=== PATIENT | male | born 1955 | race Caucasian/White ===

== ENCOUNTER 2016-02-13 06:02 | Emergency (ER) | payer OTHER ==
[~2016-02-13] VITALS: Ht 180.3 cm; Wt 159.0 kg
[~2016-02-13 06:02] MED LIST: 1-ME1LIQ PO; ALLO100 PO; ASPI81TA82 PO; ATOR20TA42 PO; BENA25TA8 PO; EPIP0.3I IM; GLIM4 PO; IMDU30TA PO; LANTINJ SQ; METHY500 PO; METO50TA PO; OMEP20TA39 PO; PRED20 PO; SPIR25TA PO; WAL-10TA2 PO
[2016-02-13 06:05] VITALS: BP 141/65; PULSE 64; RESP 18; TEMP 97.4; O2SAT 97
[2016-02-13] MEDS ORDERED: OFLO0.3D9 LEFT EAR (06:29)
--- NOTE | 2016-02-13 06:33 | PD ---
HPI Chief Complaint: ENT Complaint Time Seen by Provider: 06:20 Travel History International Travel<30 days: No Contact w/Intl Traveler<30days: No Traveled to known affect area: No History of Present Illness HPI 60-year-old male presents for evaluation of decreased hearing, tinnitus and bleeding from the left ear. It started this morning when he woke up. He endorses some pain in left ear as well, throbbing. He reports over the past day he has had a cough and congestion but no ear pain. Denies any use of Q- tips. Denies recent travel, recent swimming. He has no other complaints at this time. PFSH Past Medical History Hx Anticoagulant Therapy: Yes (ASA) Arthritis: No Asthma: No Autoimmune Disease: No Blood Disorders: No Depression: No Heart Rhythm Problems: No Cancer: Yes (SQUAMOUS CELL SKIN REMOVAL BILATERAL ARM) Cardiovascular Problems: Yes (HTN) High Cholesterol: Yes Chemotherapy: No Chest Pain: No Congestive Heart Failure: No COPD: No Cerebrovascular Accident: No Diabetes: Yes Patient Takes Glucophage: Yes Diminished Hearing: Yes ([place] LEFT) Endocrine: No Gastrointestinal Disorders: No GERD: Yes Glaucoma: No Gout: Yes Genitourinary: No Headaches: No Hepatitis: No Hiatal Hernia: No Hypertension: Yes Immune Disorder: No Implanted Vascular Access Dvce: No Kidney Stones: No Musculoskeletal: Yes (BILATERAL LEG EDEMA- NO CHF) Neurologic: No Psychiatric: No Reproductive: No Respiratory: No Integumentary: Yes (SKIN CA) Immunizations Current: No Myocardial Infarction: No Radiation Therapy: No Renal Failure: Yes (STAGE 4) Seizures: No Sickle Cell Disease: No Sleep Apnea: No Thyroid Disease: No Ulcer: No Tetanus Vaccination: Unknown Influenza Vaccination: Yes Past Surgical History Abdominal Surgery: Yes (PYLORIC STENOSIS @3MO OLD) AICD: No Cardiac Surgery: No Ear Surgery: No Endocrine Surgery: No Eye Surgery: No Genitourinary Surgery: No Gynecologic Surgery: No Joint Replacement: No Neurologic Surgery: No Oral Surgery: No Pacemaker: No Thoracic Surgery: No Other Surgery: Yes (SKIN CA REMOVALS) Social History Alcohol Use: No Tobacco Use: Yes (1 PPD) Substance Use: No Allergies-Medications (Allergen,Severity, Reaction): Coded Allergies: ANDREA Inhibitors (Verified Allergy, Severe, Anaphylaxis, 02/13/16) Reported Meds & Prescriptions Reported Meds & Active Scripts Active Ofloxacin Otic Drops 0.3 % Drops 5 Drop LEFT EAR BID 7 Days Review of Systems Except as stated in HPI: all other systems reviewed are Neg Physical Exam Narrative GENERAL: Well-developed well-nourished male in no acute distress SKIN: Warm and dry. HEAD: Atraumatic. Normocephalic. EYES: Pupils equal and round. No scleral icterus. No injection or drainage. ENT: No nasal bleeding or discharge. Mucous membranes pink and moist. There appears to be a Left tympanic membrane perforation at the 6 o'clock position. There is some dried blood in the left ear canal. NECK: Trachea midline. No JVD. Data Data Last Documented VS Vital Signs Date Time Temp Pulse Resp B/P Pulse Ox O2 Delivery O2 Flow Rate FiO2 02/13/16 06:05 97.4 64 18 141/65 97 MDM Medical Decision Making Medical Screen Exam Complete: Yes Emergency Medical Condition: Yes Medical Record Reviewed: Yes Differential Diagnosis Left tympanic membrane perforation, otitis media, otitis externa Narrative Course 60-year-old male who has had a cough and congestion for 2 days presents with bleeding from the left ear canal, tinnitus in the left ear and decreased hearing and pain in left ear. Examination reveals what appears to be a perforation at the 6 o'clock position left tympanic membrane. Plan is to treat the patient with ofloxacin otic solution, have him follow up in 1 week with his primary care physician. Diagnosis Primary Impression: Perforation of left tympanic membrane Additional Instructions: Avoid getting water in left ear canal. Medication as prescribed. Follow-up in one week with primary care physician to assess healing. Return for any emergent medical conditions. Med/Other Pt SpecificInfo: Prescription(s) given Scripts Ofloxacin Otic Drops 0.3 % Drops5 Drop LEFT EAR BID 7 Days Ref 0 Prov:Laxmi Mims MD 02/13/16 Disposition: 01 DISCHARGE HOME Condition: Stable Virgilio Rankin Feb 13, 2016 06:33
== END 2016-02-13 06:49 | disposition home or self-care (01) ==
LOC: NEPB 06:02
DX: H72.92 Unspecified perforation of tympanic membrane, left ear (principal); I10 Essential (primary) hypertension; E78.00 Pure hypercholesterolemia, unspecified; N18.4 Chronic kidney disease, stage 4 (severe); F17.210 Nicotine dependence, cigarettes, uncomplicated; Z79.82 Long term (current) use of aspirin
CPT/HCPCS: 99283

== ENCOUNTER 2017-06-05 20:38 | Emergency (ER) | payer OTHER ==
[~2017-06-05] VITALS: Ht 180.3 cm; Wt 180.0 kg
[~2017-06-05 20:38] MED LIST changes: -1-ME1LIQ PO; -ALLO100 PO; -ASPI81TA82 PO; -ATOR20TA42 PO; -BENA25TA8 PO; -EPIP0.3I IM; -GLIM4 PO; -IMDU30TA PO; -LANTINJ SQ; -METHY500 PO; -METO50TA PO; +OFLO0.3D9 LEFT EAR; -OMEP20TA39 PO; -PRED20 PO; -SPIR25TA PO; -WAL-10TA2 PO
[2017-06-05 20:57] VITALS: BP 192/89; PULSE 60; RESP 26; O2SAT 95
[2017-06-05] MEDS ORDERED: RESP: ALBUTEROL 2.5 MG/IPRATROPIUM 0.5 MG NEB (SCH) ONE (21:00)
[2017-06-05] MEDS ORDERED: OMEP20TA93 PO (21:08)
[2017-06-05] MEDS ORDERED: AMLO5TAB2 PO (21:08)
[2017-06-05] MEDS ORDERED: PIOG30TA4 PO (21:08)
[2017-06-05] MEDS ORDERED: ISOS30TA3 PO (21:08)
[2017-06-05] MEDS ORDERED: FURO40TA PO (21:08)
[2017-06-05] MEDS ORDERED: INSU1INJ13 SQ (21:08)
[2017-06-05] MEDS ORDERED: TRAZ50TA12 PO (21:08)
[2017-06-05] MEDS ORDERED: ALLO100T PO (21:08)
[2017-06-05] MEDS ORDERED: BUME1TAB PO (21:08)
[2017-06-05] MEDS ORDERED: ATOR20TA15 PO (21:08)
[2017-06-05] MEDS ORDERED: ASPI-516 CHEW (21:08)
[2017-06-05] MEDS ORDERED: METO50TA PO (21:08)
[2017-06-05] MEDS ORDERED: GABA300C5 PO (21:08)
[2017-06-05] MEDS ORDERED: METH500T PO (21:08)
[2017-06-05 21:15] VITALS: O2SAT 95
[2017-06-05] MEDS ORDERED: RESP: ALBUTEROL 2.5 MG/IPRATROPIUM 0.5 MG NEB (SCH) NEB ONE ×2 (21:15→23:30)
--- NOTE | 2017-06-05 21:31 | PD ---
HPI Chief Complaint: Respiratory Symptoms Time Seen by Provider: 21:06 Travel History International Travel<30 days: No Contact w/Intl Traveler<30days: No Traveled to known affect area: No History of Present Illness HPI Patient is a 62-year-old man who for the last few days has had an upper respiratory infection coughing now he is having reactive airway bronchitis coughing and shortness of breath he recently was diagnosed with CHF and started on Bumex on top of the furosemide he is taking he says his legs have been swelling and he has been feeling more short of breath in the ER he is tachypneic but he is satting well on room air he is started on duo nebs and x- rays labs are sent including BNP to evaluate whether this is bronchitis versus congestive heart failure or combination of the 2 . He is diabetic hypertensive with recently diagnosed CHF. He reports symptoms progressively getting worse over the last few days and now continued to worsen up until the time he arrives in the ER. He does not have a home neb he does not have an HFA inhaler PFSH Past Medical History Hx Anticoagulant Therapy: Yes (ASA) Arthritis: No Asthma: No Autoimmune Disease: No Blood Disorders: No Depression: No Heart Rhythm Problems: No Cancer: Yes (SQUAMOUS CELL SKIN REMOVAL BILATERAL ARM) Cardiovascular Problems: Yes (HTN) High Cholesterol: Yes Chemotherapy: No Chest Pain: No Congestive Heart Failure: No COPD: Yes Cerebrovascular Accident: No Diabetes: Yes Patient Takes Glucophage: No Diminished Hearing: Yes ([place] LEFT) Endocrine: No Gastrointestinal Disorders: No GERD: Yes Glaucoma: No Gout: Yes Genitourinary: No Headaches: No Hepatitis: No Hiatal Hernia: No Hypertension: Yes Immune Disorder: No Implanted Vascular Access Dvce: No Kidney Stones: No Musculoskeletal: Yes (BILATERAL LEG EDEMA- NO CHF) Neurologic: No Psychiatric: No Reproductive: No Respiratory: No Integumentary: Yes (SKIN CA) Immunizations Current: No Myocardial Infarction: No Radiation Therapy: No Renal Failure: Yes (STAGE 4) Seizures: No Sickle Cell Disease: No Sleep Apnea: No Thyroid Disease: No Ulcer: No Past Surgical History Abdominal Surgery: Yes (PYLORIC STENOSIS @3MO OLD) AICD: No Cardiac Surgery: No Ear Surgery: No Endocrine Surgery: No Eye Surgery: No Genitourinary Surgery: No Gynecologic Surgery: No Joint Replacement: No Neurologic Surgery: No Oral Surgery: No Pacemaker: No Thoracic Surgery: No Other Surgery: Yes (SKIN CA REMOVALS) Social History Alcohol Use: No Tobacco Use: Yes (1 PPD) Substance Use: No Allergies-Medications (Allergen,Severity, Reaction): Coded Allergies: ANDREA Inhibitors (Verified Allergy, Severe, Anaphylaxis, 06/09/17) benazepril (Unverified Allergy, Severe, Anaphylaxis, 06/06/17) captopril (Unverified Allergy, Severe, Anaphylaxis, 06/06/17) enalaprilat (Unverified Allergy, Severe, Anaphylaxis, 06/06/17) fosinopril (Unverified Allergy, Severe, Anaphylaxis, 06/06/17) lisinopril (Unverified Allergy, Severe, Anaphylaxis, 06/06/17) quinapril (Unverified Allergy, Severe, Anaphylaxis, 06/06/17) Reported Meds & Prescriptions Reported Meds & Active Scripts Active Levaquin (Levofloxacin) 500 Mg Tablet 500 Mg PO DAILY Combivent Respimat Inh (Ipratropium-Albuterol Inh) 20-100 Intermediate/Act Aero 1 Puff INH QID Prednisone 50 Mg Tab 50 Mg PO DAILY Reported Bumetanide 1 Mg Tab 1 Mg PO DAILY Trazodone (Trazodone HCl) 50 Mg Tab 50 Mg PO HS Gabapentin 300 Mg Cap 300 Mg PO HS Furosemide 40 Mg Tab 40 Mg PO DAILY Aspirin 81 Mg Chew 81 Mg CHEW DAILY Omeprazole 20 Mg Tab 20 Mg PO DAILY Isosorbide Mononitrate ER (Isosorbide Mononitrate) 30 Mg Chris 30 Mg PO DAILY Allopurinol 100 Mg Tab 100 Mg PO DAILY Atorvastatin (Atorvastatin Calcium) 20 Mg Tab 20 Mg PO HS Pioglitazone (Pioglitazone HCl) 30 Mg Tab 30 Mg PO DAILY Amlodipine (Amlodipine Besylate) 5 Mg Tab 5 Mg PO DAILY Metoprolol Tartrate 50 Mg Tab 50 Mg PO BID Methyldopa 500 Mg Tab 500 Mg PO TID Tresiba Flextouch Pen Inj (Insulin Degludec Inj) 600 unit/3 ML Pen 60 Units SQ Review of Systems Except as stated in HPI: all other systems reviewed are Neg HENT: Positive: Congestion Respiratory: Positive: Cough, Shortness of Breath, Wheezing Physical Exam Narrative GENERAL: mild resp distress SKIN: Warm and dry. HEAD: Atraumatic. Normocephalic. EYES: Pupils equal and round. No scleral icterus. No injection or drainage. ENT: No nasal bleeding or discharge. Mucous membranes pink and moist. NECK: Trachea midline. No JVD. CARDIOVASCULAR: Regular rate and rhythm. RESPIRATORY: wheeze diffuse in all [place] . desaturation to 85% on RA GASTROINTESTINAL: Abdomen soft, non-tender,OBESE Hepatic and splenic margins not palpable. MUSCULOSKELETAL: Extremities without clubbing, cyanosis, or edema. No obvious deformities. NEUROLOGICAL: Awake and alert. No obvious cranial nerve deficits. Motor grossly within normal limits. Five out of 5 muscle strength in the arms and legs. Normal speech. PSYCHIATRIC: Appropriate mood and affect; insight and judgment normal. Data Data Last Documented VS Orders Orders Albuterol-Ipratropium Neb (Duoneb Neb) (06/05/17 21:00) Electrocardiogram (06/05/17 21:09) Complete Blood Count With Diff (06/05/17 21:09) Comprehensive Metabolic Panel (06/05/17 21:09) Ckmb (Isoenzyme) Profile (06/05/17 21:09) Troponin I (06/05/17 21:09) B-Type Natriuretic Peptide (06/05/17 21:09) Chest, Single Ap (06/05/17 21:09) Albuterol-Ipratropium Neb (Duoneb Neb) (06/05/17 21:15) Influenzae A/B Antigen (06/05/17 21:27) Methylprednisolone So Succ Inj (Solumedr (06/05/17 23:15) Levofloxacin 750 Mg Premix Inj (Levaquin (06/05/17 23:15) Albuterol-Ipratropium Neb (Duoneb Neb) (06/05/17 23:30) Ed Discharge Order (06/06/17 02:02) Labs Laboratory Tests Test 06/05/17 19:13 White Blood Count 6.2 TH/MM3 Red Blood Count 4.23 MIL/MM3 Hemoglobin 12.6 GM/DL Hematocrit 38.9 % Mean Corpuscular Volume 91.9 FL Mean Corpuscular Hemoglobin 29.7 PG Mean Corpuscular Hemoglobin Concent 32.3 % Red Cell Distribution Width 16.8 % Platelet Count 122 TH/MM3 Mean Platelet Volume 8.3 FL Neutrophils (%) (Auto) 73.1 % Lymphocytes (%) (Auto) 17.3 % Monocytes (%) (Auto) 7.6 % Eosinophils (%) (Auto) 1.6 % Basophils (%) (Auto) 0.4 % Neutrophils # (Auto) 4.6 TH/MM3 Lymphocytes # (Auto) 1.1 TH/MM3 Monocytes # (Auto) 0.5 TH/MM3 Eosinophils # (Auto) 0.1 TH/MM3 Basophils # (Auto) 0.0 TH/MM3 CBC Comment DIFF FINAL Differential Comment Blood Urea Nitrogen 24 MG/DL Creatinine 2.14 MG/DL Random Glucose 121 MG/DL Total Protein 7.0 GM/DL Albumin 2.6 GM/DL Calcium Level 8.2 MG/DL Alkaline Phosphatase 143 U/L Aspartate Amino Transf (AST/SGOT) 27 U/L Alanine Aminotransferase (ALT/SGPT) 31 U/L Total Bilirubin 0.5 MG/DL Sodium Level 141 MEQ/L Potassium Level 3.8 MEQ/L Chloride Level 99 MEQ/L Carbon Dioxide Level 33.8 MEQ/L Anion Gap 8 MEQ/L Estimat Glomerular Filtration Rate 31 ML/MIN Total Creatine Kinase 57 U/L Troponin I LESS THAN 0.02 NG/ML B-Type Natriuretic Peptide 201 PG/ML MDM Medical Decision Making Medical Screen Exam Complete: Yes Emergency Medical Condition: Yes Medical Record Reviewed: Yes Differential Diagnosis copd vs CHF vs bronchitis vs other Narrative Course duo nebs times 3 and levaquin and steroid and 4 hrs observation and RA o2 sat remains above 94 % safe for D/C and close follow up Diagnosis Primary Impression: Bronchitis Patient Instructions: Acute Bronchitis (ED), General Instructions Scripts Levofloxacin (Levaquin) 500 Mg Tablet 500 MG PO DAILY for Infection, #5 TAB 0 Refills Prov: Bill Lopez MD 06/06/17 Ipratropium-Albuterol Inh (Combivent Respimat Inh) 20-100 Intermediate/Act Aero 1 PUFF INH QID for Asthma Management, #1 INHALER 0 Refills Prov: Bill Lopez MD 06/06/17 Prednisone (Prednisone) 50 Mg Tab 50 MG PO DAILY, #5 TAB 0 Refills Prov: Bill Lopez MD 06/06/17 Disposition: 01 DISCHARGE HOME Bill Lopez MD Jun 05, 2017 21:31
--- NOTE | 2017-06-05 21:40 | RADRPT ---
EXAM DATE/TIME: 06/05/2017 21:16 [facility] COMPARISON: CHEST SINGLE AP, August 14, 2015, 12:44. INDICATIONS : Short of breath. MEDICAL HISTORY : COPD. SURGICAL HISTORY : None. ENCOUNTER: Initial ACUITY: 1 day PAIN SCORE: 0/10 LOCATION: Bilateral chest FINDINGS: Trace atelectasis both bases. No perceptible effusion. No pneumothorax. Mild cardiomegaly. CONCLUSION: Mild cardiomegaly has developed. No acute failure seen. There is mild bibasilar atelectasis. Cezar Doe MD on June 05, 2017 at 21:36 Board Certified Radiologist. This report was verified electronically.
[2017-06-05 21:44] VITALS: BP 157/75; PULSE 60; RESP 20; O2SAT 98
[2017-06-05 22:04] LABS: AUTOMATED NEUTROPHIL # 4.6 TH/MM3 (1.8-7.7); BASOPHIL % 0.4 % (0.0-2.0); EOSINOPHIL # 0.1 TH/MM3 (0-0.4); EOSINOPHIL % 1.6 % (0.0-4.0); HEMATOCRIT 38.9 % (39.0-51.0); HEMOGLOBIN 12.6 GM/DL (13.0-17.0); LYMPH % 17.3 % (9.0-44.0); LYMPHOCYTE # 1.1 TH/MM3 (1.0-4.8); MEAN CELL VOLUME 91.9 FL (80.0-100.0); MEAN CORPUSCULAR HEMOGLOBIN 29.7 PG (27.0-34.0); MEAN CORPUSCULAR HGB CONC 32.3 % (32.0-36.0); MEAN PLATELET VOLUME 8.3 FL (7.0-11.0); MONO % 7.6 % (0.0-8.0); MONOCYTE # 0.5 TH/MM3 (0-0.9); NEUT % 73.1 % (16.0-70.0); PLATELET COUNT 122 TH/MM3 (150-450); RED BLOOD COUNT 4.23 MIL/MM3 (4.50-5.90); RED CELL DISTRIBUTION WIDTH 16.8 % (11.6-17.2); WHITE BLOOD COUNT 6.2 TH/MM3 (4.0-11.0)
[2017-06-05 22:18] LABS: ALBUMIN 2.6 GM/DL (3.4-5.0); ALT (GPT) 31 U/L (12-78); AST (GOT) 27 U/L (15-37); BICARBONATE 33.8 MEQ/L (21.0-32.0); BLOOD UREA NITROGEN 24 MG/DL (7-18); CALCIUM 8.2 MG/DL (8.5-10.1); CHLORIDE 99 MEQ/L (98-107); CREATININE 2.14 MG/DL (0.60-1.30); GLOMERULAR FILTRATION RATE 31 ML/MIN (>89); GLUCOSE,RANDOM 121 MG/DL (74-106); SODIUM (NA) 141 MEQ/L (136-145)
[2017-06-05 22:22] LABS: ALKALINE PHOSPHATASE 143 U/L (45-117); TOTAL BILIRUBIN ADULT 0.5 MG/DL (0.2-1.0); TROPONIN I LESS THAN 0.02 NG/ML (0.02-0.05)
[2017-06-05 23:00] VITALS: BP 147/72; PULSE 62; RESP 18; O2SAT 95
[2017-06-05] MEDS ORDERED: methylPREDNISolone SOD SUCC 125 MG/2 ML VIAL IV PUSH ONE (23:15)
[2017-06-05] MEDS ORDERED: LEVOFLOXACIN 750 MG PREMIX INJ 150 ML IV ONE (23:15)
[2017-06-06 00:48] VITALS: BP 120/61; PULSE 66; RESP 18; O2SAT 97
[2017-06-06 01:55] VITALS: O2SAT 94
[2017-06-06] MEDS ORDERED: PRED50 PO (02:00)
[2017-06-06] MEDS ORDERED: IPRAAER INH (02:00)
[2017-06-06] MEDS ORDERED: LEVA500T33 PO (02:00)
--- NOTE | 2017-06-06 10:24 | EKG ---
Date Performed: 06/05/2017 Time Performed: 21:04:12 PTAGE: 62 years EKG: SINUS BRADYCARDIA WITH FIRST DEGREE AV BLOCK LOW QRS VOLTAGE IN PRECORDIAL LEADS ANTEROSEPT AL MYOCARDIAL INFARCTION ABNORMAL ECG PREVIOUS TRACING : 08/14/2015 12.53 Since the previous tracing, no significant change noted DOCTOR: Ozzie Adair Interpretating Date/Time 06/06/2017 10:24:13
[2017-06-06] MEDS ORDERED: ALBU0.08 NEB (12:36)
[2017-06-06] MEDS ORDERED: NEBULIZER1 MI1 (12:36)
[2017-06-06] MEDS ORDERED: TRAM50TA PO (12:36)
== END 2017-06-06 02:16 | disposition home or self-care (01) ==
LOC: NEPE 20:38
DX: J44.9 Chronic obstructive pulmonary disease, unspecified (principal); F17.200 Nicotine dependence, unspecified, uncomplicated; I12.9 Hypertensive chronic kidney disease with stage 1 through stage 4 chronic kidney disease, or unspecified chronic kidney disease; E11.22 Type 2 diabetes mellitus with diabetic chronic kidney disease; N18.4 Chronic kidney disease, stage 4 (severe); R06.02 Shortness of breath; Z79.4 Long term (current) use of insulin
CPT/HCPCS: 71045; 80053; 82550; 83880; 84484; 85025; 87804; 93005; 94640; 94664; 96374; 96375; 99285; J1956; J2930

== ENCOUNTER 2017-06-06 11:19 | Inpatient (IN) | payer OTHER ==
[~2017-06-06] VITALS: Ht 179.1 cm; Wt 172.6 kg
[~2017-06-06 11:19] MED LIST changes: +ALLO100T PO; +AMLO5TAB2 PO; +ASPI-516 CHEW; +ATOR20TA15 PO; +BUME1TAB PO; +FURO40TA PO; +GABA300C5 PO; +INSU1INJ13 SQ; +IPRAAER INH; +ISOS30TA3 PO; +LEVA500T33 PO; +METH500T PO; +METO50TA PO; +OMEP20TA93 PO; +PIOG30TA4 PO; +PRED50 PO; +TRAZ50TA12 PO
[2017-06-06 11:25] VITALS: BP 149/70; PULSE 73; RESP 24; TEMP 98.9; O2SAT 90
[2017-06-06] MEDS ORDERED: predniSONE 20 MG TAB PO ONE (11:30)
[2017-06-06] MEDS: RESP: ALBUTEROL 2.5 MG/IPRATROPIUM 0.5 MG NEB (SCH) INH ×4 (11:37→19:32)
--- NOTE | 2017-06-06 11:40 | PD ---
HPI Chief Complaint: Pain: Acute or Chronic Time Seen by Provider: 11:24 Travel History International Travel<30 days: No Contact w/Intl Traveler<30days: No History of Present Illness HPI 62-year-old male brought in by EMS status post fall at home. Patient states he was trying to change his pants on his legs became entangled and he fell backwards landing on the right hip. 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 Patient also has history of CHF. He denies chest pain currently, but does feel wheezing and short of breath, as he has not used his albuterol since being discharged yesterday. He denies significant back pain, lower extremity pain, report of syncope, loss of consciousness, hitting his head, or neck pain. Patient states he took all of his morning meds this morning except his insulin. Patient is allergic to ANDREA inhibitors. PFSH Past Medical History Hx Anticoagulant Therapy: Yes (ASA) Arthritis: No Asthma: No Autoimmune Disease: No Blood Disorders: No Depression: No Heart Rhythm Problems: No Cancer: Yes (SQUAMOUS CELL SKIN REMOVAL BILATERAL ARM) Cardiovascular Problems: Yes (HTN) High Cholesterol: Yes Chemotherapy: No Chest Pain: No Congestive Heart Failure: No COPD: Yes Cerebrovascular Accident: No Diabetes: Yes Diminished Hearing: Yes ([place] LEFT) Endocrine: No Gastrointestinal Disorders: No GERD: Yes Glaucoma: No Gout: Yes Genitourinary: No Headaches: No Hepatitis: No Hiatal Hernia: No Hypertension: Yes Immune Disorder: No Implanted Vascular Access Dvce: No Kidney Stones: No Musculoskeletal: Yes (BILATERAL LEG EDEMA- NO CHF) Neurologic: No Psychiatric: No Reproductive: No Respiratory: No Integumentary: Yes (SKIN CA) Immunizations Current: No Myocardial Infarction: No Radiation Therapy: No Renal Failure: Yes (STAGE 4) Seizures: No Sickle Cell Disease: No Sleep Apnea: No Thyroid Disease: No Ulcer: No Past Surgical History Abdominal Surgery: Yes (PYLORIC STENOSIS @3MO OLD) AICD: No Cardiac Surgery: No Ear Surgery: No Endocrine Surgery: No Eye Surgery: No Genitourinary Surgery: No Gynecologic Surgery: No Joint Replacement: No Neurologic Surgery: No Oral Surgery: No Pacemaker: No Thoracic Surgery: No Other Surgery: Yes (SKIN CA REMOVALS) Social History Alcohol Use: No Tobacco Use: Yes (1 PPD) Substance Use: No Allergies-Medications (Allergen,Severity, Reaction): Coded Allergies: benazepril (Unverified Allergy, Severe, Anaphylaxis, 06/06/17) captopril (Unverified Allergy, Severe, Anaphylaxis, 06/06/17) enalaprilat (Unverified Allergy, Severe, Anaphylaxis, 06/06/17) fosinopril (Unverified Allergy, Severe, Anaphylaxis, 06/06/17) lisinopril (Unverified Allergy, Severe, Anaphylaxis, 06/06/17) quinapril (Unverified Allergy, Severe, Anaphylaxis, 06/06/17) Reported Meds & Prescriptions Reported Meds & Active Scripts Active Levaquin (Levofloxacin) 500 Mg Tablet 500 Mg PO DAILY Combivent Respimat Inh (Ipratropium-Albuterol Inh) 20-100 [place]/Act Aero 1 Puff INH QID Prednisone 50 Mg Tab 50 Mg PO DAILY Ofloxacin Otic Drops 0.3 % Drops 5 Drop LEFT EAR BID 7 Days Reported Bumetanide 1 Mg Tab 1 Mg PO DAILY Trazodone (Trazodone HCl) 50 Mg Tab 50 Mg PO HS Gabapentin 300 Mg Cap 300 Mg PO HS Furosemide 40 Mg Tab 40 Mg PO DAILY Aspirin 81 Mg Chew 81 Mg CHEW DAILY Omeprazole 20 Mg Tab 20 Mg PO DAILY Isosorbide Mononitrate ER (Isosorbide Mononitrate) 30 Mg Chris 30 Mg PO DAILY Allopurinol 100 Mg Tab 100 Mg PO DAILY Atorvastatin (Atorvastatin Calcium) 20 Mg Tab 20 Mg PO HS Pioglitazone (Pioglitazone HCl) 30 Mg Tab 30 Mg PO DAILY Amlodipine (Amlodipine Besylate) 5 Mg Tab 5 Mg PO DAILY Metoprolol Tartrate 50 Mg Tab 50 Mg PO BID Methyldopa 500 Mg Tab 500 Mg PO TID Tresiba Flextouch Pen Inj (Insulin Degludec Inj) 600 unit/3 ML Pen 60 Units SQ Review of Systems Except as stated in HPI: all other systems reviewed are Neg General / Constitutional: No: Fever Eyes: No: Visual changes HENT: No: Headaches Cardiovascular: No: Chest Pain or Discomfort Respiratory: Positive: Shortness of Breath, Wheezing (See history of present illness per) Gastrointestinal: No: Abdominal Pain Genitourinary: No: Dysuria Musculoskeletal: Positive: Arthralgias, Pain (See history of present illness), No: Myalgias, Limited ROM Skin: No Rash Neurologic: No: Weakness Psychiatric: No: Depression Endocrine: No: Polydipsia Hematologic/Lymphatic: No: Easy Bruising Physical Exam Narrative GENERAL: Morbidly obese male in no obvious distress SKIN: Warm and dry. Normal color normal turgor. HEAD: Atraumatic. Normocephalic. EYES: Pupils equal and round. No scleral icterus. No injection or drainage. ENT: No nasal bleeding or discharge. Mucous membranes pink and moist. Pharynx is clear. Airways patent. NECK: Trachea midline. Supple and nontender. CARDIOVASCULAR: Regular rate and rhythm. RESPIRATORY: No accessory muscle use. Clear to auscultation. Breath sounds equal bilaterally. GASTROINTESTINAL: Abdomen soft, non-tender, nondistended. Hepatic and splenic margins not palpable. MUSCULOSKELETAL: Extremities without clubbing, cyanosis, or greater than 2+ bilateral nonpitting edema to both lower extremities. Patient complains of pain with palpation to the right buttocks and hip. No obvious deformity is noted. NEUROLOGICAL: Awake and alert. No obvious cranial nerve deficits. Motor grossly within normal limits. Five out of 5 muscle strength in the arms and legs. Normal speech. PSYCHIATRIC: Appropriate mood and affect; insight and judgment normal. Data Data Last Documented VS Vital Signs Date Time Temp Pulse Resp B/P (MAP) Pulse Ox O2 Delivery O2 Flow Rate FiO2 06/06/17 13:33 83 14 141/67 (91) 96 Nasal Cannula 3.00 06/06/17 11:25 98.9 Orders Orders Prednisone (Deltasone) (06/06/17 11:30) Albuterol-Ipratropium Neb (Duoneb Neb) (06/06/17 11:30) Hip, Lat Only W Ap Pelvis (06/06/17 ) Insulin Human Regular Inj (Novolin R Inj (06/06/17 11:45) Complete Blood Count With Diff (06/06/17 12:56) Comprehensive Metabolic Panel (06/06/17 12:56) B-Type Natriuretic Peptide (06/06/17 12:56) Act Partial Throm Time (Ptt) (06/06/17 12:56) Prothrombin Time / Inr (Pt) (06/06/17 12:56) Iv Access Insert/Monitor (06/06/17 12:56) Electrocardiogram (06/06/17 12:56) Ecg Monitoring (06/06/17 12:56) Oximetry (06/06/17 12:56) Oxygen Administration (06/06/17 12:56) Chest, Single Ap (06/06/17 12:56) Sodium Chloride 0.9% Flush (Ns Flush) (06/06/17 13:00) Furosemide Inj (Lasix Inj) (06/06/17 13:00) Admit Order (Ed Use Only) (06/06/17 14:41) Labs Laboratory Tests Test 06/06/17 13:15 White Blood Count 5.6 TH/MM3 Red Blood Count 4.22 MIL/MM3 Hemoglobin 12.6 GM/DL Hematocrit 38.9 % Mean Corpuscular Volume 92.0 FL Mean Corpuscular Hemoglobin 29.9 PG Mean Corpuscular Hemoglobin Concent 32.5 % Red Cell Distribution Width 16.8 % Platelet Count 111 TH/MM3 Mean Platelet Volume 8.1 FL Neutrophils (%) (Auto) 88.9 % Lymphocytes (%) (Auto) 8.0 % Monocytes (%) (Auto) 2.7 % Eosinophils (%) (Auto) 0.0 % Basophils (%) (Auto) 0.4 % Neutrophils # (Auto) 5.0 TH/MM3 Lymphocytes # (Auto) 0.4 TH/MM3 Monocytes # (Auto) 0.2 TH/MM3 Eosinophils # (Auto) 0.0 TH/MM3 Basophils # (Auto) 0.0 TH/MM3 CBC Comment DIFF FINAL Differential Comment Prothrombin Time 10.8 SEC Prothromb Time International Ratio 1.1 RATIO Activated Partial Thromboplast Time 25.0 SEC Blood Urea Nitrogen 26 MG/DL Creatinine 2.29 MG/DL Random Glucose 189 MG/DL Total Protein 7.0 GM/DL Albumin 2.4 GM/DL Calcium Level 8.4 MG/DL Alkaline Phosphatase 141 U/L Aspartate Amino Transf (AST/SGOT) 34 U/L Alanine Aminotransferase (ALT/SGPT) 33 U/L Total Bilirubin 0.4 MG/DL Sodium Level 138 MEQ/L Potassium Level 4.3 MEQ/L Chloride Level 99 MEQ/L Carbon Dioxide Level 30.1 MEQ/L Anion Gap 9 MEQ/L Estimat Glomerular Filtration Rate 29 ML/MIN B-Type Natriuretic Peptide 201 PG/ML MDM Medical Decision Making Medical Screen Exam Complete: Yes Emergency Medical Condition: Yes Medical Record Reviewed: Yes Differential Diagnosis Accidental fall. Right hip contusion. Possible fracture. COPD. Wheezing. Narrative Course Patient appears medically stable time exam. Patient is given 60 mg prednisone dose as well as DuoNeb 3 for his bronchitis. Patient is given 5 units of regular insulin for his blood sugar which is 283. X-ray of the right hip and pelvis is ordered. X-ray show no acute process per radiologist Upon reassessment after the DuoNeb the patient feels subjectively better but he is noted to be dropping into the 80s on room air. At this point labs ordered including CBC, CMP, BMP, and coagulation studies. Patient is given 40 mg Lasix IV. Chest x-ray is ordered. EKG shows sinus rhythm with first degree AV block. CBC shows no significant leukocytosis with a hemoglobin of 12.6, hematocrit of 38.9 Coagulation studies shows PT of 10.8, INR 1.1, and APTT is 25.0. Chemistries show sodium of 134, BUN is 29, creatinine is elevated at 2.29. Alk phos is elevated 141, BUN is exactly the same as yesterday at 201. Albumin is 2.4. Due to the patient's hypoxia and difficulty ambulating secondary to weakness I feel he warrants admission and perhaps PT eval or nursing facility placement. Patient to be admitted for his hypoxia. Diagnosis Primary Impression: Hypoxemic respiratory failure, chronic Additional Impressions: Contusion of right hip, initial encounter Wheezing Chronic renal insufficiency Qualified Codes: N18.3 - Chronic kidney disease, stage 3 (moderate) Admitting Information Admitting Physician Requests: Observation Patient Instructions: Contusion in Adults (ED), General Instructions, How to Use a Nebulizer (ED) Additional Instructions: X-ray show no acute process per radiologist Patient should continue his antibiotics and prednisone as previously prescribed. Patient is given a nebulizer with albuterol every 4 hours as needed wheezing. Patient also given tramadol 50 mg 1 every 6 hours as needed pain #12 Patient to follow with his primary care physician next week to ensure improvement on all things Disposition: 01 DISCHARGE HOME Condition: Stable Ruddy Bui Jun 06, 2017 11:40
[2017-06-06 11:43] VITALS: O2SAT 96
[2017-06-06] MEDS ORDERED: INSULIN HUMAN REGULAR 1,000 UNITS/10 ML VIAL SQ ONE (11:45)
--- NOTE | 2017-06-06 12:05 | RADRPT ---
EXAM DATE/TIME: 06/06/2017 11:46 [facility] COMPARISON: No previous studies available for comparison. INDICATIONS : Right sided hip pain after fall this morning. MEDICAL HISTORY : Chronic obstructive pulmonary disease. SURGICAL HISTORY : None. ENCOUNTER: Initial ACUITY: 1 day PAIN SCORE: 4/10 LOCATION: Right hip. FINDINGS: A lateral view of the right hip with AP pelvis was obtained. No definite fractures, dislocations, ly tic or sclerotic lesions are seen. The joint space is well maintained. CONCLUSION: No acute disease. Cezar Prieto MD on June 06, 2017 at 12:01 Board Certified Radiologist. This report was verified electronically.
[2017-06-06] MEDS ORDERED: NEBULIZER1 MI1 (12:36)
[2017-06-06] MEDS ORDERED: ALBU0.08 NEB (12:36)
[2017-06-06] MEDS ORDERED: TRAM50TA PO (12:36)
[2017-06-06] MEDS ORDERED: FUROSEMIDE 40 MG/4 ML VIAL IVP ONE (13:00)
[2017-06-06] MEDS ORDERED: SODIUM CHLORIDE 0.9% FLUSH 10 ML FLUSH IVF PRN (13:00)
[2017-06-06 13:33] VITALS: BP 141/67; PULSE 83; RESP 14; O2SAT 96
[2017-06-06 13:40] LABS: BASOPHIL % 0.4 % (0.0-2.0); HEMATOCRIT 38.9 % (39.0-51.0); HEMOGLOBIN 12.6 GM/DL (13.0-17.0); LYMPHOCYTE # 0.4 TH/MM3 (1.0-4.8); MEAN CORPUSCULAR HEMOGLOBIN 29.9 PG (27.0-34.0); MEAN CORPUSCULAR HGB CONC 32.5 % (32.0-36.0); MEAN PLATELET VOLUME 8.1 FL (7.0-11.0); MONO % 2.7 % (0.0-8.0); MONOCYTE # 0.2 TH/MM3 (0-0.9); NEUT % 88.9 % (16.0-70.0); PLATELET COUNT 111 TH/MM3 (150-450); RED BLOOD COUNT 4.22 MIL/MM3 (4.50-5.90); RED CELL DISTRIBUTION WIDTH 16.8 % (11.6-17.2); WHITE BLOOD COUNT 5.6 TH/MM3 (4.0-11.0)
--- NOTE | 2017-06-06 13:44 | RADRPT ---
EXAM DATE/TIME: 06/06/2017 13:22 [facility] COMPARISON: CHEST SINGLE AP, August 14, 2015, 12:44. CHEST SINGLE AP, June 05, 2017, 21:16. INDICATIONS : Shortness of breath. MEDICAL HISTORY : Chronic obstructive pulmonary disease. Diabetes mellitus type II. Hypertension. CHF. SURGICAL HISTORY : None. ENCOUNTER: Initial ACUITY: 4 - 6 days PAIN SCORE: 0/10 LOCATION: chest FINDINGS: The heart size is enlarged. The lungs are grossly clear. No effusion is seen. The upper trachea is de viated to the left. This appearance is unchanged. CONCLUSION: Cardiomegaly. Cezar Prieto MD on June 06, 2017 at 13:40 Board Certified Radiologist. This report was verified electronically.
[2017-06-06 13:49] LABS: INTERNATIONAL NORMALIZED RATIO 1.1 RATIO; PROTHROMBIN TIME - PATIENT 10.8 SEC (9.8-11.6)
--- NOTE | 2017-06-06 13:57 | PD ---
Data Data Last Documented VS Vital Signs Date Time Temp Pulse Resp B/P (MAP) Pulse Ox O2 Delivery O2 Flow Rate FiO2 06/06/17 13:33 83 14 141/67 (91) 96 Nasal Cannula 3.00 06/06/17 11:25 98.9 Orders Orders Prednisone (Deltasone) (06/06/17 11:30) Albuterol-Ipratropium Neb (Duoneb Neb) (06/06/17 11:30) Hip, Lat Only W Ap Pelvis (06/06/17 ) Insulin Human Regular Inj (Novolin R Inj (06/06/17 11:45) Complete Blood Count With Diff (06/06/17 12:56) Comprehensive Metabolic Panel (06/06/17 12:56) B-Type Natriuretic Peptide (06/06/17 12:56) Act Partial Throm Time (Ptt) (06/06/17 12:56) Prothrombin Time / Inr (Pt) (06/06/17 12:56) Iv Access Insert/Monitor (06/06/17 12:56) Electrocardiogram (06/06/17 12:56) Ecg Monitoring (06/06/17 12:56) Oximetry (06/06/17 12:56) Oxygen Administration (06/06/17 12:56) Chest, Single Ap (06/06/17 12:56) Sodium Chloride 0.9% Flush (Ns Flush) (06/06/17 13:00) Furosemide Inj (Lasix Inj) (06/06/17 13:00) Labs Laboratory Tests Test 06/06/17 13:15 White Blood Count 5.6 TH/MM3 Red Blood Count 4.22 MIL/MM3 Hemoglobin 12.6 GM/DL Hematocrit 38.9 % Mean Corpuscular Volume 92.0 FL Mean Corpuscular Hemoglobin 29.9 PG Mean Corpuscular Hemoglobin Concent 32.5 % Red Cell Distribution Width 16.8 % Platelet Count 111 TH/MM3 Mean Platelet Volume 8.1 FL Neutrophils (%) (Auto) 88.9 % Lymphocytes (%) (Auto) 8.0 % Monocytes (%) (Auto) 2.7 % Eosinophils (%) (Auto) 0.0 % Basophils (%) (Auto) 0.4 % Neutrophils # (Auto) 5.0 TH/MM3 Lymphocytes # (Auto) 0.4 TH/MM3 Monocytes # (Auto) 0.2 TH/MM3 Eosinophils # (Auto) 0.0 TH/MM3 Basophils # (Auto) 0.0 TH/MM3 CBC Comment DIFF FINAL Differential Comment Prothrombin Time 10.8 SEC Prothromb Time International Ratio 1.1 RATIO Activated Partial Thromboplast Time 25.0 SEC MDM Supervised Visit with CANDELARIA: Yes Narrative Course I, Dr. Horner, have reviewed the advance practice practitioner's documentation and am in agreement, met with the patient face to face, made the diagnosis, and the medical decision making was done by me. *My assessment and Findings: I met with the patient and examined him. Saturations are poor even resting. He has a hypoxic respiratory failure I believe due to a combination of both COPD and CHF. He has had multiple nebulizers here. We gave him IV Lasix. His chest x-ray shows some cardiomegaly and a hint of fluid overload. He will be admitted. Diagnosis Primary Impression: Hypoxemic respiratory failure, chronic Additional Impressions: Wheezing Contusion of right hip, initial encounter Admitting Information Admitting Physician Requests: Admit Patient Instructions: General Instructions, How to Use a Nebulizer (ED), Contusion in Adults (ED) Additional Instruction: X-ray show no acute process per radiologist Patient should continue his antibiotics and prednisone as previously prescribed. Patient is given a nebulizer with albuterol every 4 hours as needed wheezing. Patient also given tramadol 50 mg 1 every 6 hours as needed pain #12 Patient to follow with his primary care physician next week to ensure improvement on all things Sony Horner MD Jun 06, 2017 13:57
[2017-06-06 14:02] LABS: ALKALINE PHOSPHATASE 141 U/L (45-117); TOTAL BILIRUBIN ADULT 0.4 MG/DL (0.2-1.0)
[2017-06-06 14:11] LABS: ALBUMIN 2.4 GM/DL (3.4-5.0); ALT (GPT) 33 U/L (12-78); AST (GOT) 34 U/L (15-37); BICARBONATE 30.1 MEQ/L (21.0-32.0); BLOOD UREA NITROGEN 26 MG/DL (7-18); CALCIUM 8.4 MG/DL (8.5-10.1); CHLORIDE 99 MEQ/L (98-107); CREATININE 2.29 MG/DL (0.60-1.30); GLOMERULAR FILTRATION RATE 29 ML/MIN (>89); GLUCOSE,RANDOM 189 MG/DL (74-106); SODIUM (NA) 138 MEQ/L (136-145)
[2017-06-06] MEDS ORDERED: methylPREDNISolone SOD SUCC 125 MG/2 ML VIAL IV PUSH SCH ×2 (15:00→18:00)
--- NOTE | 2017-06-06 15:16 | HHI.HP ---
HPI Service [facility] Hospitalists Primary Care Physician Saurav Rojas MD Admission Diagnosis Hypoxia/COPD/CHF Chief Complaint: fell, SOB, edema Travel History International Travel<30 Days: No Contact w/Intl Traveler <30 Da: No Traveled to Known Affected Are: No History of Present Illness This is a 62-year-old male patient with a past medical history which includes CAD, hypertension, diabetes mellitus type 2, chronic kidney disease stage III, tobacco dependence, gout, squamous cell carcinoma of the skin, GERD, alcohol dependency in remission, pancreatitis, fatty liver, hyperlipidemia and morbid obesity. Patient was seen yesterday in the ER diagnosed with COPD exacerbation and DC with prescriptions for Levaquin, Combivent and prednisone. Patient returns to the ER today brought in by EMS status post fall at home. Patient denies LOC or head trauma. Patient was trying to change his pants when his legs became entangled and he fell backwards landing on the right hip. Patient states he was getting dressed to go to the pharmacy to bead picker his medications that were given to him yesterday for his COPD/bronchitis flare. Patient reports feeling short of breath and wheezing. Patient's pulse oxygen saturation on RA was 90%. Patient and his sisters who help care for him report worsening edema over the past 2-3 months. Patient reports he is probably gained weight but is unsure the amount. Patient also reports that his shortness of breath is getting worse. He is only able to ambulate short distances then becomes short of breath and has to rest. Patient is unable to lay flat to sleep and has to sleep propped up on 2-3 pillows. Patient denies feeling lightheaded, headache, fevers, chills, cough, congestion , chest pain or N/V/D/C Review of Systems Constitutional: COMPLAINS OF: Fatigue, DENIES: Fever, Chills Respiratory: COMPLAINS OF: Wheezing, Shortness of breath, DENIES: Cough, Sputum production Cardiovascular: COMPLAINS OF: Dyspnea on Exertion, Lower Extremity Edema, DENIES: Chest pain Gastrointestinal: DENIES: Abdominal pain, Constipation, Diarrhea, Nausea, Vomiting Neurologic: DENIES: Abnormal gait, Headache, Localized weakness, Speech Problems Psychiatric: DENIES: Anxiety, Confusion, Depression Past Family Social History Past Medical History CAD, hypertension, diabetes mellitus type 2, chronic kidney disease stage III, tobacco dependence, gout, squamous cell carcinoma of the skin, GERD, alcohol dependency in remission, pancreatitis, fatty liver, hyperlipidemia and morbid obesity Past Surgical History Skin biopsy, actinic keratosis excision from left forearm, excision of squamous cell carcinoma from left forearm, nuclear stress test 2013 negative, colonoscopy 2013 Reported Medications Levaquin (Levofloxacin) 500 Mg Tablet 500 Mg PO DAILY Combivent Respimat Inh (Ipratropium-Albuterol Inh) 20-100 Penit[facility]iary/Act Aero 1 Puff INH QID Prednisone 50 Mg Tab 50 Mg PO DAILY Ofloxacin Otic Drops 0.3 % Drops 5 Drop LEFT EAR BID 7 Days Bumetanide 1 Mg Tab 1 Mg PO DAILY Trazodone (Trazodone HCl) 50 Mg Tab 50 Mg PO HS Gabapentin 300 Mg Cap 300 Mg PO HS Furosemide 40 Mg Tab 40 Mg PO DAILY Aspirin 81 Mg Chew 81 Mg CHEW DAILY Omeprazole 20 Mg Tab 20 Mg PO DAILY Isosorbide Mononitrate ER (Isosorbide Mononitrate) 30 Mg Chris 30 Mg PO DAILY Allopurinol 100 Mg Tab 100 Mg PO DAILY Atorvastatin (Atorvastatin Calcium) 20 Mg Tab 20 Mg PO HS Pioglitazone (Pioglitazone HCl) 30 Mg Tab 30 Mg PO DAILY Amlodipine (Amlodipine Besylate) 5 Mg Tab 5 Mg PO DAILY Metoprolol Tartrate 50 Mg Tab 50 Mg PO BID Methyldopa 500 Mg Tab 500 Mg PO TID Tresiba Flextouch Pen Inj (Insulin Degludec Inj) 600 unit/3 ML Pen 60 Units SQ Allergies: Coded Allergies: benazepril (Unverified Allergy, Severe, Anaphylaxis, 06/06/17) captopril (Unverified Allergy, Severe, Anaphylaxis, 06/06/17) enalaprilat (Unverified Allergy, Severe, Anaphylaxis, 06/06/17) fosinopril (Unverified Allergy, Severe, Anaphylaxis, 06/06/17) lisinopril (Unverified Allergy, Severe, Anaphylaxis, 06/06/17) quinapril (Unverified Allergy, Severe, Anaphylaxis, 06/06/17) Family History Father at 88 years old secondary to CAD Mother at 71 had a history of heart disease and hypertension DM, HTN also runs in the family Social History History of EtOH abuse quit drinking in 1994 Continues to smoke 1 pack per day Physical Exam Vital Signs Vital Signs Date Time Temp Pulse Resp B/P (MAP) Pulse Ox O2 Delivery O2 Flow Rate FiO2 06/06/17 13:33 83 14 141/67 (91) 96 Nasal Cannula 3.00 06/06/17 11:43 96 Nasal Cannula 2.00 06/06/17 11:33 73 24 96 Nasal Cannula 2.00 06/06/17 11:25 98.9 73 24 149/70 (96) 90 Physical Exam GENERAL: This is a Morbidly obese, well-developed patient SKIN: No rashes, ecchymoses or lesions. Cool and dry. EYES: Extraocular motions intact. No scleral icterus. No injection or drainage. NECK: Trachea midline. No lymphadenopathy. Supple, nontender, no meningeal signs. CARDIOVASCULAR: Regular rate and rhythm RESPIRATORY: decreased through with poor air entry GASTROINTESTINAL: Abdomen soft, non-tender, nondistended. edema up into abdomen consistent with anasarca MUSCULOSKELETAL: 2+ bilateral pitting edema NEUROLOGICAL: Awake and alert. No focal deficits. Motor and sensory grossly within normal limits. 4 out of 5 muscle strength in all muscle groups. Normal speech. Laboratory Laboratory Tests Test 06/06/17 13:15 White Blood Count 5.6 Red Blood Count 4.22 Hemoglobin 12.6 Hematocrit 38.9 Mean Corpuscular Volume 92.0 Mean Corpuscular Hemoglobin 29.9 Mean Corpuscular Hemoglobin Concent 32.5 Red Cell Distribution Width 16.8 Platelet Count 111 Mean Platelet Volume 8.1 Neutrophils (%) (Auto) 88.9 Lymphocytes (%) (Auto) 8.0 Monocytes (%) (Auto) 2.7 Eosinophils (%) (Auto) 0.0 Basophils (%) (Auto) 0.4 Neutrophils # (Auto) 5.0 Lymphocytes # (Auto) 0.4 Monocytes # (Auto) 0.2 Eosinophils # (Auto) 0.0 Basophils # (Auto) 0.0 CBC Comment DIFF FINAL Differential Comment Prothrombin Time 10.8 Prothromb Time International Ratio 1.1 Activated Partial Thromboplast Time 25.0 Blood Urea Nitrogen 26 Creatinine 2.29 Random Glucose 189 Total Protein 7.0 Albumin 2.4 Calcium Level 8.4 Alkaline Phosphatase 141 Aspartate Amino Transf (AST/SGOT) 34 Alanine Aminotransferase (ALT/SGPT) 33 Total Bilirubin 0.4 Sodium Level 138 Potassium Level 4.3 Chloride Level 99 Carbon Dioxide Level 30.1 Anion Gap 9 Estimat Glomerular Filtration Rate 29 B-Type Natriuretic Peptide 201 Result Diagram: 06/06/17 1315 06/06/17 1315 Imaging Last Impressions Chest X-Ray 06/06/17 1256 Signed Impressions: Service Date/Time: Tuesday, June 06, 2017 13:22 - CONCLUSION: Cardiomegaly. Cezar Prieto MD Hip and Pelvis X-Ray 06/06/17 0000 Signed Impressions: Service Date/Time: Tuesday, June 06, 2017 11:46 - CONCLUSION: No acute disease. MD Jaguar [employer]gs VTE Risk Assessment Caprini VTE Risk Assessment: Mod/High Risk (score >= 2) Caprini Risk Assessment Model Point Value = 1 Point Value = 2 Point Value = 3 Point Value = 5 Age 41-60 Minor surgery BMI > 25 kg/m2 Swollen legs Varicose veins or History of unexplained or recurrent spontaneous Oral contraceptives or hormone replacement Sepsis (< 1 month) Serious lung disease, including pneumonia (< 1 month) Abnormal pulmonary function Acute myocardial infarction Congestive heart failure (< 1 month) History of inflammatory bowel disease Medical patient at bed rest Age 61-74 Arthroscopic surgery Major open surgery (> 45 min) Laparoscopic surgery (> 45 min) Malignancy Confined to bed (> 72 hours) Immobilizing plaster cast Central venous access Age >= 75 History of VTE Family history of VTE Factor V Leiden Prothrombin [id number] Lupus anticoagulant Anticardiolipin antibodies Elevated serum homocysteine Heparin-induced thrombocytopenia Other congenital or acquired thrombophilia Stroke (< 1 month) Elective arthroplasty Hip, pelvis, or leg fracture Acute spinal cord injury (< 1 month) Prophylaxis Regimen Total Risk Factor Score Risk Level Prophylaxis Regimen 0-1 Low Early ambulation 2 Moderate Order ONE of the following: *Sequential Compression Device (SCD) *Heparin 5000 units SQ BID 3-4 Higher Order ONE of the following medications: *Heparin 5000 units SQ TID *Enoxaparin/Lovenox 40 mg SQ daily (WT < 150 kg, CrCl > 30 mL/min) *Enoxaparin/Lovenox 30 mg SQ daily (WT < 150 kg, CrCl > 10-29 mL/min) *Enoxaparin/Lovenox 30 mg SQ BID (WT < 150 kg, CrCl > 30 mL/min) AND/OR *Sequential Compression Device (SCD) 5 or more Highest Order ONE of the following medications: *Heparin 5000 units SQ TID (Preferred with Epidurals) *Enoxaparin/Lovenox 40 mg SQ daily (WT < 150 kg, CrCl > 30 mL/min) *Enoxaparin/Lovenox 30 mg SQ daily (WT < 150 kg, CrCl > 10-29 mL/min) *Enoxaparin/Lovenox 30 mg SQ BID (WT < 150 kg, CrCl > 30 mL/min) AND *Sequential Compression Device (SCD) Assessment and Plan Problem List: (1) Hypoxia ICD Codes: R09.02 - Hypoxemia Plan: SOB with hypoxia, patient was 87% on room air 06/05/2017 COPD exacerbation High suspicion for CHF given clinical presentation patient with increasing fluid retention over the last 2-3 months Lasix 40 mg IV given in ER Continue Lasix 40 mg IV BID Echocardiogram requested Lungs have poor air entry with air movement through out solu medrol 60 mg IV given in ER will continue Solu medrol 60 mg IV Q6H repeat CXR in AM (2) CKD (chronic kidney disease) requiring chronic dialysis ICD Codes: N18.6 - End stage renal disease; Z99.2 - Dependence on renal dialysis Plan: Baseline creatinine runs 1.9-2.2 Baseline GFR around 30-37 monitor closely (3) Hypertension ICD Codes: I10 - Hypertension Status: Acute Plan: Continue patient's home Norvasc 5 mg daily, metoprolol 50 mg twice daily (4) DM (diabetes mellitus) ICD Codes: E11.9 - DM (diabetes mellitus) Status: Acute Plan: Patient takes Tresiba 60 mg daily and Pioglitazone 30 mg PO daily-the hospital does not carry these medications We will start patient on checks before meals at bedtime with high dose sliding scale insulin coverage Diabetic diet (5) Tobacco abuse ICD Codes: Z72.0 - Tobacco abuse Status: Acute Plan: Counselled encouraged patient to quit smoking patient declined nicotine patch (6) Fall ICD Codes: W19.XXXA - Unspecified fall, initial encounter Plan: Mechanical fall with right hip pain X ray Right Hip and Pelvis No fracture dislocation or lytic lesion seen. No acute disease PT consulted Assessment and Plan Patient examined. Assessment and plan formulated with Abby Young PA-C. I agree with the above. Pt family c/o worsening SOB and edema for several months. Pt is current smoker. Pt has edema in LEs up to the lower abdomen. Start IV Lasix. Poor lung air movement. Start IV steroids. Anticipate 3-4 day hospital stay. Abby Young Jun 06, 2017 15:16 Jas Santoyo DO Jun 08, 2017 04:29
[2017-06-06] MEDS: cefTRIAXone INJ 1,000 MG in SODIUM CHLORIDE 0.9% INJ 100 ML IV SCH (15:56)
--- NOTE | 2017-06-06 16:14 | RADRPT ---
EXAM DATE/TIME: 06/06/2017 15:25 [facility] COMPARISON: No previous studies available for comparison. INDICATIONS : Shortness of breath today. RADIATION DOSE: 25.17 CTDIvol (mGy) ; Patient body habitus MEDICAL HISTORY : Hypertension. Chronic obstructive pulmonary disease. Gastroesophageal reflux disease. diabetes SURGICAL HISTORY : None. ENCOUNTER: Initial ACUITY: 1 day PAIN SCALE: 0/10 LOCATION: Bilateral chest TECHNIQUE: Volumetric scanning of the chest was performed. Using automated exposure control and adjustment of t he mA and/or kV according to patient size, radiation dose was kept as low as reasonably achievable to obtain optimal diagnostic quality images. DICOM format image data is available electronically for r eview and comparison. Follow-up recommendations for detected pulmonary nodules are based at a minimum on nodule size and pa tient risk factors according to Fleischner Society Guidelines. FINDINGS: LUNGS: There is mild increased density at the posterior lower lobes likely related to consolidation or atele ctasis. There are bilateral calcified granulomas. There is a faint 5 mm density in the anterior later al right midlung likely related to some minimal focal pleural thickening at the lateral aspect of the minor fissure. PLEURAE: Again noted is the suspected minimal focal pleural thickening the lateral aspect of the right minor f issure. MEDIASTINUM: The heart and great vessels demonstrate no acute abnormality. Calcified lymph nodes are seen the hil ar regions. Soft tissue adenopathy is not seen. There is a mild amount of pericardial fluid present. Coronary artery calcification are present. AXILLAE: Within normal limits. No lymphadenopathy. MUSCULOSKELETAL: There is spurring seen in the thoracic spine. MISCELLANEOUS: There is a 2.8 cm fat density mass of the left adrenal gland likely related to a myelolipoma. CONCLUSION: 1. Evidence of granulomatous exposure. 2. Suspected bibasal areas of mild atelectasis or consolidation. 3. 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 Cezra Prieto MD on June 06, 2017 at 16:04 Board Certified Radiologist. This report was verified electronically.
[2017-06-06] MEDS ORDERED: INSULIN ASPART SUPPLEMENTAL SCALE SQ SCH (17:00)
[2017-06-06 17:20] VITALS: BP 150/70; PULSE 91; RESP 19; TEMP 97.3; O2SAT 92
[2017-06-06] MEDS: METHYLDOPA 500 MG TAB PO SCH (18:12)
[2017-06-06] MEDS: methylPREDNISolone SOD SUCC 125 MG/2 ML VIAL IV PUSH SCH ×2 (18:12→23:47)
[2017-06-06] MEDS: FUROSEMIDE 40 MG/4 ML VIAL IV PUSH SCH (18:12)
[2017-06-06] MEDS: INSULIN ASPART SUPPLEMENTAL SCALE SQ SCH ×2 (18:13→20:32)
[2017-06-06 19:32] VITALS: O2SAT 95
[2017-06-06 20:00] VITALS: BP 163/76; PULSE 90; RESP 17; TEMP 97.6; O2SAT 96
[2017-06-06] MEDS: ATORVASTATIN 20 MG TAB PO SCH (20:20)
[2017-06-06] MEDS: METOPROLOL TARTRATE 50 MG TAB PO SCH (20:20)
[2017-06-06] MEDS: traZODone HCL 50 MG TAB PO SCH (20:20)
[2017-06-06] MEDS: SODIUM CHLORIDE 0.9% FLUSH 10 ML FLUSH IV FLUSH SCH (20:25)
[2017-06-06] MEDS: LORazepam 0.5 MG TAB PO PRN (20:32)
[2017-06-06] MEDS ORDERED: OFLOXACIN 0.3% OPTH SOLN 5 ML BTL LEFT EAR SCH (21:00)
[2017-06-07] VITALS (9 sets, daily range): BP systolic 151–164; BP diastolic 70–81; PULSE 63–105; RESP 18–20; TEMP 97.4–98.6; O2SAT 92–95
--- NOTE | 2017-06-07 00:22 | EKG ---
Date Performed: 06/06/2017 Time Performed: 13:04:17 PTAGE: 62 years EKG: Sinus rhythm WITH FIRST DEGREE AV BLOCK LOW QRS VOLTAGE IN PRECORDIAL LEADS ANTEROSEPTAL MYOCARDIAL INFARCTION AB NORMAL ECG PREVIOUS TRACING : 06/05/2017 21.04 Compared to previous tracing, rate has increased DOCTOR: Ozzie Adair Interpretating Date/Time 06/07/2017 00:20:36
[2017-06-07] MEDS: methylPREDNISolone SOD SUCC 125 MG/2 ML VIAL IV PUSH SCH ×4 (05:19→23:47)
[2017-06-07 06:15] LABS: AUTOMATED NEUTROPHIL # 10.3 TH/MM3 (1.8-7.7); BASOPHIL % 0.1 % (0.0-2.0); EOSINOPHIL % 0.3 % (0.0-4.0); HEMATOCRIT 37.3 % (39.0-51.0); HEMOGLOBIN 12.1 GM/DL (13.0-17.0); LYMPHOCYTE # 0.4 TH/MM3 (1.0-4.8); MEAN CELL VOLUME 91.1 FL (80.0-100.0); MEAN CORPUSCULAR HEMOGLOBIN 29.6 PG (27.0-34.0); MEAN CORPUSCULAR HGB CONC 32.4 % (32.0-36.0); MEAN PLATELET VOLUME 8.6 FL (7.0-11.0); MONO % 1.2 % (0.0-8.0); MONOCYTE # 0.1 TH/MM3 (0-0.9); NEUT % 94.4 % (16.0-70.0); PLATELET COUNT 131 TH/MM3 (150-450); RED BLOOD COUNT 4.09 MIL/MM3 (4.50-5.90); RED CELL DISTRIBUTION WIDTH 16.9 % (11.6-17.2); WHITE BLOOD COUNT 10.9 TH/MM3 (4.0-11.0)
[2017-06-07 06:42] LABS: BICARBONATE 31.5 MEQ/L (21.0-32.0); CALCIUM 8.6 MG/DL (8.5-10.1); CREATININE 2.41 MG/DL (0.60-1.30)
[2017-06-07] MEDS: RESP: ALBUTEROL 2.5 MG/IPRATROPIUM 0.5 MG NEB (SCH) NEB ×4 (08:19→23:10)
[2017-06-07] MEDS: ASPIRIN 81 MG CHEW TAB CHEW SCH (08:41)
[2017-06-07] MEDS: ALLOPURINOL 100 MG TAB PO SCH (08:41)
[2017-06-07] MEDS: METOPROLOL TARTRATE 50 MG TAB PO SCH ×2 (08:41→20:15)
[2017-06-07] MEDS: SODIUM CHLORIDE 0.9% FLUSH 10 ML FLUSH IV FLUSH SCH ×2 (08:41→20:15)
[2017-06-07] MEDS: AZITHROMYCIN 250 MG TAB PO SCH (08:41)
[2017-06-07] MEDS: INSULIN ASPART SUPPLEMENTAL SCALE SQ SCH ×4 (08:41→20:40)
[2017-06-07] MEDS: PANTOPRAZOLE SOD 20 MG DELAYED RELEASE TAB PO SCH (08:41)
[2017-06-07] MEDS: METHYLDOPA 500 MG TAB PO SCH ×3 (08:42→17:19)
[2017-06-07] MEDS: ISOSORBIDE MONONITRATE 30 MG CR TAB (IMDUR) PO SCH (08:42)
[2017-06-07] MEDS: FUROSEMIDE 40 MG/4 ML VIAL IV PUSH SCH ×2 (08:42→17:19)
[2017-06-07] MEDS ORDERED: amLODIPine BESYLATE 5 MG TAB PO SCH (09:00)
[2017-06-07] MEDS ORDERED: FUROSEMIDE 40 MG TAB PO SCH (09:00)
--- NOTE | 2017-06-07 09:34 | RADRPT ---
EXAM DATE/TIME: 06/07/2017 09:11 [facility] COMPARISON: No previous studies available for comparison. INDICATIONS : Shortness of breath, cough, congestion. MEDICAL HISTORY : Hypertension. Diabetes mellitus type II. Chronic obstructive pulmonary disease. Congestive heart failure. Smoker. SURGICAL HISTORY : None. ENCOUNTER: Subsequent ACUITY: 1 week PAIN SCORE: 0/10 LOCATION: Bilateral chest FINDINGS: Cardiomegaly and degenerative changes. No consolidation or effusion. CONCLUSION: No acute disease. Feliberto Villanueva MD on June 07, 2017 at 9:31 Board Certified Radiologist. This report was verified electronically.
[2017-06-07] MEDS: cefTRIAXone INJ 1,000 MG in SODIUM CHLORIDE 0.9% INJ 100 ML IV SCH (14:18)
[2017-06-07] MEDS ORDERED: DEXTROSE 50% IN WATER 50 ML VIAL(D50) IV PUSH PRN (17:00)
[2017-06-07] MEDS ORDERED: GLUCAGON 1 MG/ML VIAL OTHER PRN (17:00)
--- NOTE | 2017-06-07 17:24 | HHI.PR ---
Subjective Remarks Patient feels his breathing is, "may be a little better," but not much different than yesterday Patient continues to have lower extremity edema as well as abdominal edema Patient reports he is only voided 4 times today negative fluid balance but not as much diuresis as we would like Objective Vitals Vital Signs Date Time Temp Pulse Resp B/P (MAP) Pulse Ox O2 Delivery O2 Flow Rate FiO2 06/07/17 16:00 97.4 77 20 162/75 (104) 93 06/07/17 12:00 63 06/07/17 12:00 98.6 77 20 151/70 (97) 95 06/07/17 08:21 92 Nasal Cannula 4.00 06/07/17 08:00 105 06/07/17 08:00 98.3 98 20 156/81 (106) 93 06/07/17 04:00 98.2 87 19 160/81 (107) 92 06/07/17 04:00 84 06/07/17 00:00 98.0 91 18 164/77 (106) 92 06/06/17 20:00 97.6 90 17 163/76 (105) 96 06/06/17 19:32 95 Nasal Cannula 2.00 06/06/17 17:20 97.3 91 19 150/70 (96) 92 06/07/17 06/07/17 06/08/17 15:00 23:00 07:00 Intake Total 720 ml Output Total 600 ml Balance 720 ml -600 ml Intake Oral 720 ml Output Urine Total 600 ml # Voids 2 Result Diagram: 06/07/17 0415 06/07/17 0415 Other Results Laboratory Tests Test 06/06/17 13:15 06/07/17 04:15 White Blood Count 5.6 TH/MM3 10.9 TH/MM3 Red Blood Count 4.22 MIL/MM3 4.09 MIL/MM3 Hemoglobin 12.6 GM/DL 12.1 GM/DL Hematocrit 38.9 % 37.3 % Mean Corpuscular Volume 92.0 FL 91.1 FL Mean Corpuscular Hemoglobin 29.9 PG 29.6 PG Mean Corpuscular Hemoglobin Concent 32.5 % 32.4 % Red Cell Distribution Width 16.8 % 16.9 % Platelet Count 111 TH/MM3 131 TH/MM3 Mean Platelet Volume 8.1 FL 8.6 FL Neutrophils (%) (Auto) 88.9 % 94.4 % Lymphocytes (%) (Auto) 8.0 % 4.0 % Monocytes (%) (Auto) 2.7 % 1.2 % Eosinophils (%) (Auto) 0.0 % 0.3 % Basophils (%) (Auto) 0.4 % 0.1 % Neutrophils # (Auto) 5.0 TH/MM3 10.3 TH/MM3 Lymphocytes # (Auto) 0.4 TH/MM3 0.4 TH/MM3 Monocytes # (Auto) 0.2 TH/MM3 0.1 TH/MM3 Eosinophils # (Auto) 0.0 TH/MM3 0.0 TH/MM3 Basophils # (Auto) 0.0 TH/MM3 0.0 TH/MM3 CBC Comment DIFF FINAL DIFF FINAL Differential Comment Prothrombin Time 10.8 SEC Prothromb Time International Ratio 1.1 RATIO Activated Partial Thromboplast Time 25.0 SEC Blood Urea Nitrogen 26 MG/DL 30 MG/DL Creatinine 2.29 MG/DL 2.41 MG/DL Random Glucose 189 MG/DL 171 MG/DL Total Protein 7.0 GM/DL Albumin 2.4 GM/DL Calcium Level 8.4 MG/DL 8.6 MG/DL Alkaline Phosphatase 141 U/L Aspartate Amino Transf (AST/SGOT) 34 U/L Alanine Aminotransferase (ALT/SGPT) 33 U/L Total Bilirubin 0.4 MG/DL Sodium Level 138 MEQ/L 138 MEQ/L Potassium Level 4.3 MEQ/L 4.1 MEQ/L Chloride Level 99 MEQ/L 98 MEQ/L Carbon Dioxide Level 30.1 MEQ/L 31.5 MEQ/L Anion Gap 9 MEQ/L 9 MEQ/L Estimat Glomerular Filtration Rate 29 ML/MIN 27 ML/MIN B-Type Natriuretic Peptide 201 PG/ML Imaging Last Impressions Chest X-Ray 06/06/17 1256 Signed Impressions: Service Date/Time: Tuesday, June 06, 2017 13:22 - CONCLUSION: Cardiomegaly. Cezar Prieto MD Hip and Pelvis X-Ray 06/06/17 0000 Signed Impressions: Service Date/Time: Tuesday, June 06, 2017 11:46 - CONCLUSION: No acute disease. Cezar Prieto MD Objective Remarks GENERAL: This is a Morbidly obese, well-developed patient CARDIOVASCULAR: Regular rate and rhythm RESPIRATORY: decreased through GASTROINTESTINAL: Abdomen soft, non-tender, nondistended. edema up into abdomen consistent with anasarca MUSCULOSKELETAL: 2+ bilateral pitting edema NEUROLOGICAL: Awake and alert. No focal deficits. Motor and sensory grossly within normal limits. 4 out of 5 muscle strength in all muscle groups. Normal speech. A/P Problem List: (1) Hypoxia ICD Codes: R09.02 - Hypoxemia Plan: SOB with hypoxia, patient was 87% on room air 06/05/2017 COPD exacerbation High suspicion for CHF given clinical presentation patient with increasing fluid retention over the last 2-3 months Lasix 40 mg IV given in ER Patient reports he is only voided 4 times today he is in negative fluid balance but not as much diuresis as he would like Will Increase Lasix to 80 mg IV BID Echocardiogram requested and still pending Lungs have poor air entry with air movement through out solu medrol 60 mg IV given in ER will continue Solu medrol 60 mg IV Q6H Continue supplemental oxygen as needed to maintain saturation above 92% (2) CKD (chronic kidney disease) requiring chronic dialysis ICD Codes: N18.6 - End stage renal disease; Z99.2 - Dependence on renal dialysis Plan: Baseline creatinine runs 1.9-2.2 Baseline GFR around 30-37 monitor closely with diuresis May need nephrology consultation. Patient follows with Dr. Martinez outpatient Repeat BMP in a.m. (3) Hypertension ICD Codes: I10 - Hypertension Status: Acute Plan: Continue patient's home metoprolol 50 mg twice daily DC home amlodipine start nifedipine 30 mg twice daily (4) DM (diabetes mellitus) ICD Codes: E11.9 - DM (diabetes mellitus) Status: Acute Plan: Patient takes Tresiba 60 mg daily and Pioglitazone 30 mg PO daily-the hospital does not carry these medications We will start patient on checks before meals at bedtime with high dose sliding scale insulin coverage Diabetic diet Add Levemir 12 units twice daily (5) Tobacco abuse ICD Codes: Z72.0 - Tobacco abuse Status: Acute Plan: Counselled encouraged patient to quit smoking patient declined nicotine patch (6) Fall ICD Codes: W19.XXXA - Unspecified fall, initial encounter Plan: Mechanical fall with right hip pain X ray Right Hip and Pelvis No fracture dislocation or lytic lesion seen. No acute disease PT consulted Assessment and Plan Patient examined. Assessment and plan formulated with Abby Young PA-C. I agree with the above. Mild improvement in lung air movement. Continue IV steroids. Increase duonebs to q4h. increase lasix to 80mg IV BID observe renal function repeat BMP and CXR in AM Abby Young Jun 07, 2017 17:24 Jas Santoyo DO Jun 08, 2017 04:31
[2017-06-07] MEDS: traZODone HCL 50 MG TAB PO SCH (20:15)
[2017-06-07] MEDS: ATORVASTATIN 20 MG TAB PO SCH (20:15)
[2017-06-07] MEDS: NIFEdipine 30 MG SUSTAINED RELEASE TAB PO SCH (20:15)
[2017-06-07] MEDS: INSULIN DETEMIR 100 UNITS/ML VIAL SQ SCH (20:39)
[2017-06-08] VITALS (11 sets, daily range): BP systolic 125–155; BP diastolic 60–78; PULSE 72–97; RESP 16–20; TEMP 97.3–98.5; O2SAT 92–95
[2017-06-08] MEDS: RESP: ALBUTEROL 2.5 MG/IPRATROPIUM 0.5 MG NEB (SCH) NEB ×6 (02:59→23:53)
[2017-06-08] MEDS: methylPREDNISolone SOD SUCC 125 MG/2 ML VIAL IV PUSH SCH ×4 (05:21→23:28)
--- NOTE | 2017-06-08 08:50 | RADRPT ---
EXAM DATE/TIME: 06/08/2017 08:19 [facility] COMPARISON: CHEST SINGLE AP, June 06, 2017, 13:22. CHEST PA & LAT, June 07, 2017, 9:11. INDICATIONS : Short of breath MEDICAL HISTORY : Congestive heart failure. Hypertension. Diabetes mellitus type II. Chronic obstructive pulmonary SURGICAL HISTORY : None. ENCOUNTER: Subsequent ACUITY: 1 week PAIN SCORE: 0/10 LOCATION: Bilateral FINDINGS: The heart size is mildly enlarged. There is increased density at the right base. There some prominenc e of the central pulmonary vessels. Significant effusions are not clearly seen. CONCLUSION: 1. Mild right base atelectasis or consolidation. 2. Prominence of the central pulmonary vessels likely related to pulmonary venous hypertension versus mild edema. 3. Cardiomegaly. Cezar Prieto MD on June 08, 2017 at 8:45 Board Certified Radiologist. This report was verified electronically.
[2017-06-08] MEDS: INSULIN DETEMIR 100 UNITS/ML VIAL SQ SCH ×2 (08:55→21:48)
[2017-06-08] MEDS: ALLOPURINOL 100 MG TAB PO SCH (08:55)
[2017-06-08] MEDS: ASPIRIN 81 MG CHEW TAB CHEW SCH (08:55)
[2017-06-08] MEDS: METOPROLOL TARTRATE 50 MG TAB PO SCH ×2 (08:55→21:48)
[2017-06-08] MEDS: NIFEdipine 30 MG SUSTAINED RELEASE TAB PO SCH ×2 (08:56→21:47)
[2017-06-08] MEDS: FUROSEMIDE 40 MG/4 ML VIAL IV PUSH SCH ×2 (08:56→18:43)
[2017-06-08] MEDS: AZITHROMYCIN 250 MG TAB PO SCH (08:56)
[2017-06-08] MEDS: ISOSORBIDE MONONITRATE 30 MG CR TAB (IMDUR) PO SCH (08:56)
[2017-06-08] MEDS: PANTOPRAZOLE SOD 20 MG DELAYED RELEASE TAB PO SCH (08:57)
[2017-06-08] MEDS: METHYLDOPA 500 MG TAB PO SCH ×3 (08:57→17:34)
[2017-06-08] MEDS: SODIUM CHLORIDE 0.9% FLUSH 10 ML FLUSH IV FLUSH SCH ×2 (09:00→21:49)
[2017-06-08] MEDS: INSULIN ASPART SUPPLEMENTAL SCALE SQ SCH ×4 (09:04→21:48)
[2017-06-08 09:15] LABS: BASOPHIL % 0.2 % (0.0-2.0); HEMATOCRIT 39.9 % (39.0-51.0); HEMOGLOBIN 12.9 GM/DL (13.0-17.0); LYMPH % 3.4 % (9.0-44.0); LYMPHOCYTE # 0.5 TH/MM3 (1.0-4.8); MEAN CELL VOLUME 91.8 FL (80.0-100.0); MEAN CORPUSCULAR HEMOGLOBIN 29.7 PG (27.0-34.0); MEAN CORPUSCULAR HGB CONC 32.3 % (32.0-36.0); MEAN PLATELET VOLUME 8.7 FL (7.0-11.0); MONO % 1.5 % (0.0-8.0); MONOCYTE # 0.2 TH/MM3 (0-0.9); NEUT % 94.9 % (16.0-70.0); PLATELET COUNT 130 TH/MM3 (150-450); RED BLOOD COUNT 4.35 MIL/MM3 (4.50-5.90); RED CELL DISTRIBUTION WIDTH 16.9 % (11.6-17.2); WHITE BLOOD COUNT 15.8 TH/MM3 (4.0-11.0)
[2017-06-08 09:21] LABS: BICARBONATE 28.8 MEQ/L (21.0-32.0); CALCIUM 8.7 MG/DL (8.5-10.1); CREATININE 2.71 MG/DL (0.60-1.30)
--- NOTE | 2017-06-08 10:23 | HHI.PR ---
Subjective Remarks Patient report much more urine output with increase in lasix No new complaints Objective Vitals Vital Signs Date Time Temp Pulse Resp B/P (MAP) Pulse Ox O2 Delivery O2 Flow Rate FiO2 06/08/17 08:00 97.6 78 20 155/69 (97) 94 06/08/17 08:00 80 06/08/17 04:00 97 06/08/17 03:47 98.5 91 20 136/63 (87) 94 06/08/17 00:49 97.7 72 18 146/70 (95) 95 06/08/17 00:00 83 06/07/17 21:24 97.9 77 18 154/74 (100) 93 06/07/17 20:00 81 06/07/17 19:52 94 Nasal Cannula 4.00 06/07/17 16:00 83 06/07/17 16:00 97.4 77 20 162/75 (104) 93 06/07/17 12:00 63 06/07/17 12:00 98.6 77 20 151/70 (97) 95 Result Diagram: 06/08/17 0800 06/08/17 0800 Imaging Last Impressions Chest X-Ray 06/06/17 1256 Signed Impressions: Service Date/Time: Tuesday, June 06, 2017 13:22 - CONCLUSION: Cardiomegaly. Cezar Prieto MD Hip and Pelvis X-Ray 06/06/17 0000 Signed Impressions: Service Date/Time: Tuesday, June 06, 2017 11:46 - CONCLUSION: No acute disease. Cezar Prieto MD Objective Remarks GENERAL: This is a Morbidly obese, well-developed patient CARDIOVASCULAR: Regular rate and rhythm RESPIRATORY: faint scattered expiratory wheezing GASTROINTESTINAL: Abdomen soft, non-tender, nondistended. edema up into abdomen consistent with anasarca MUSCULOSKELETAL: 2- 3+ bilateral pitting edema NEUROLOGICAL: Awake and alert. No focal deficits. Motor and sensory grossly within normal limits. 4 out of 5 muscle strength in all muscle groups. Normal speech. A/P Problem List: (1) Hypoxia ICD Codes: R09.02 - Hypoxemia Plan: SOB with hypoxia, patient was 87% on room air 06/05/2017 COPD exacerbation High suspicion for CHF given clinical presentation patient with increasing fluid retention over the last 2-3 months Lasix 40 mg IV given in ER Patient reports he is only voided 4 times today he is in negative fluid balance but not as much diuresis as he would like Will Increase Lasix to 80 mg IV BID add Albumin prior to Lasix Echocardiogram requested and still pending Lungs have poor air entry with air movement through out solu medrol 60 mg IV given in ER continue Solu medrol 60 mg IV Q6H Continue supplemental oxygen as needed to maintain saturation above 92% Patient does not appear infected ( WBC 5.6, a febrile denies cough) on admission with DC abx (2) CKD (chronic kidney disease) requiring chronic dialysis ICD Codes: N18.6 - End stage renal disease; Z99.2 - Dependence on renal dialysis Plan: Baseline creatinine runs 1.9-2.2 Baseline GFR around 30-37 ON admission creatinine 2.29 -> 2.41 (06/07) -> 2.71 (06/08) monitor closely with diuresis Will consult nephrology. Patient follows with Dr. Martinez outpatient Repeat BMP in a.m. (3) Hypertension ICD Codes: I10 - Hypertension Status: Acute Plan: Continue patient's home metoprolol 50 mg twice daily DC home amlodipine start nifedipine 30 mg twice daily (4) DM (diabetes mellitus) ICD Codes: E11.9 - DM (diabetes mellitus) Status: Acute Plan: Patient takes Tresiba 60 mg daily and Pioglitazone 30 mg PO daily-the hospital does not carry these medications We will start patient on checks before meals at bedtime with high dose sliding scale insulin coverage Diabetic diet Increase Levemir to 15 units twice daily (5) Tobacco abuse ICD Codes: Z72.0 - Tobacco abuse Status: Acute Plan: Counselled encouraged patient to quit smoking patient declined nicotine patch (6) Fall ICD Codes: W19.XXXA - Unspecified fall, initial encounter Plan: Mechanical fall with right hip pain X ray Right Hip and Pelvis No fracture dislocation or lytic lesion seen. No acute disease PT consulted Assessment and Plan Patient examined. Assessment and plan formulated with Abby Young PA-C. I agree with the above. copd exacerbation. cont nebs. steroids then taper. ckd 3 pt reports over 50pound weight gain in 3months. echo to eval for chf pending. check urine for proteinuria. renal consulted. pt on iv lasix. albumen. stop iv abx. Abby Young Jun 08, 2017 10:23 Blair Contreras MD Jun 08, 2017 17:52
[2017-06-08] MEDS ORDERED: ALBUMIN 25% INJ 100 ML IV SCH (12:00)
[2017-06-08] MEDS: ALBUMIN 25% INJ 100 ML IV SCH (17:33)
--- NOTE | 2017-06-08 19:49 | PD.CONS ---
[facility] Service Nephrology Consult Requested By Reason for Consult Acute on CKD Primary Care Physician Saurav Rojas MD History of Present Illness This is a 62 y/o male patient with CKD. We follow with him in our CKD clinic; his creatinine was 2.2 through 2016 and early in to 2017. Last checked about 6 months ago, it was 1.8, GFR 37. He comes to ER for shortness of breath and edema. He actually fell trying to get dressed, therefore had imaging of hips post fall which was negative for a fracture. His diuretic regimen was Bumex 1 mg daily with 40 mg of furosemide. He was on spironolactone but that was stopped. several months ago. He is also a diabetic, reports good control of glucose lately. Today he is on oxygen via nasal cannula, feels shortness of breath has improved, but reports recent weight gain which he cannot quantify. He is not on oxygen at home, has LAMONTE but does not have a CPAP. We were consulted to assist with management. (Maddi Reaves) Review of Systems Constitutional: COMPLAINS OF: Fatigue, Weight gain, DENIES: Weight loss, Change in appetite Cardiovascular: COMPLAINS OF: Dyspnea on Exertion, Lower Extremity Edema, Orthopnea, DENIES: Chest pain Gastrointestinal: DENIES: Abdominal pain (Maddi Reaves) Past Family Social History Allergies: Coded Allergies: ANDREA Inhibitors (Verified Allergy, Severe, Anaphylaxis, 06/09/17) benazepril (Unverified Allergy, Severe, Anaphylaxis, 06/06/17) captopril (Unverified Allergy, Severe, Anaphylaxis, 06/06/17) enalaprilat (Unverified Allergy, Severe, Anaphylaxis, 06/06/17) fosinopril (Unverified Allergy, Severe, Anaphylaxis, 06/06/17) lisinopril (Unverified Allergy, Severe, Anaphylaxis, 06/06/17) quinapril (Unverified Allergy, Severe, Anaphylaxis, 06/06/17) Past Medical History CKD 3, baseline creatinine 1.8, GFR 37 CAD hypertension diabetes mellitus type 2 tobacco dependence gout squamous cell carcinoma of the skin GERD alcohol dependency in remission pancreatitis LAMONTE not on CPAP fatty liver hyperlipidemia morbid obesity Past Surgical History Skin biopsy actinic keratosis excision from left forearm excision of squamous cell carcinoma from left forearm nuclear stress test 2013 negative colonoscopy 2013 Reported Medications Levaquin (Levofloxacin) 500 Mg Tablet 500 Mg PO DAILY Combivent Respimat Inh (Ipratropium-Albuterol Inh) 20-100 Half-Way/Act Aero 1 Puff INH QID Prednisone 50 Mg Tab 50 Mg PO DAILY Ofloxacin Otic Drops 0.3 % Drops 5 Drop LEFT EAR BID 7 Days Bumetanide 1 Mg Tab 1 Mg PO DAILY Trazodone (Trazodone HCl) 50 Mg Tab 50 Mg PO HS Gabapentin 300 Mg Cap 300 Mg PO HS Furosemide 40 Mg Tab 40 Mg PO DAILY Aspirin 81 Mg Chew 81 Mg CHEW DAILY Omeprazole 20 Mg Tab 20 Mg PO DAILY Isosorbide Mononitrate ER (Isosorbide Mononitrate) 30 Mg Chris 30 Mg PO DAILY Allopurinol 100 Mg Tab 100 Mg PO DAILY Atorvastatin (Atorvastatin Calcium) 20 Mg Tab 20 Mg PO HS Pioglitazone (Pioglitazone HCl) 30 Mg Tab 30 Mg PO DAILY Amlodipine (Amlodipine Besylate) 5 Mg Tab 5 Mg PO DAILY Metoprolol Tartrate 50 Mg Tab 50 Mg PO BID Methyldopa 500 Mg Tab 500 Mg PO TID Tresiba Flextouch Pen Inj (Insulin Degludec Inj) 600 unit/3 ML Pen 60 Units SQ Active Ordered Medications Current Medications Medications (Trade) Dose Ordered Sig/Arlet Route Start Time Stop Time Status Last Admin (NS Flush) 2 ml UNSCH PRN IVF 06/06/17 13:00 (NS Flush) 2 ml BID IV FLUSH 06/06/17 21:00 06/08/17 09:00 (NS Flush) 2 ml UNSCH PRN IV FLUSH 06/06/17 14:45 (Albuterol Neb) 2.5 mg Q2HR NEB PRN INH 06/06/17 16:00 (Zyloprim) 100 mg DAILY PO 06/07/17 09:00 06/08/17 08:55 (Aspirin Chew) 81 mg DAILY CHEW 06/07/17 09:00 06/08/17 08:55 (Lipitor) 20 mg HS PO 06/06/17 21:00 06/07/17 20:15 (Imdur) 30 mg DAILY PO 06/07/17 09:00 06/08/17 08:56 (Aldomet) 500 mg TID PO 06/06/17 18:00 06/08/17 17:34 (Lopressor) 50 mg BID PO 06/06/17 21:00 06/08/17 08:55 (Desyrel) 50 mg HS PO 06/06/17 21:00 06/07/17 20:15 (Protonix) 20 mg DAILY PO 06/07/17 09:00 06/08/17 08:57 (Ativan) 0.5 mg Q8H PRN PO 06/06/17 15:30 06/06/17 20:32 (SoluMEDROL INJ) 60 mg Q6HR IV PUSH 06/06/17 18:00 06/08/17 17:34 (NovoLOG SUPPLEMENTAL SCALE) 1 ACHS SLIDING SCALE SQ 06/06/17 17:00 06/08/17 17:33 (Procardia Xl) 30 mg BID PO 06/07/17 21:00 06/08/17 08:56 (Duoneb Neb) 1 ampule Q4HR NEB NEB 06/07/17 20:00 06/08/17 16:18 (Lasix Inj) 80 mg BID@09,18 IV PUSH 06/07/17 18:00 06/08/17 18:43 (D50w (Vial) Inj) 50 ml UNSCH PRN IV PUSH 06/07/17 17:00 (Glucagon Inj) 1 mg UNSCH PRN OTHER 06/07/17 17:00 (Levemir Inj) 15 units Q12HR SQ 06/08/17 21:00 Albumin Human 100 ml @ 60 mls/hr BID@0830,1730 IV 06/08/17 17:30 06/08/17 17:33 Family History Non contributory Social History Active pack per day smoker No ETOH No oxygen at home Single Ambulatory/mostly independent Full code (Maddi Reaves) Physical Exam Vital Signs Vital Signs Date Time Temp Pulse Resp B/P (MAP) Pulse Ox O2 Delivery O2 Flow Rate FiO2 06/08/17 08:00 97.6 78 20 155/69 (97) 94 06/08/17 08:00 80 06/08/17 04:00 97 06/08/17 03:47 98.5 91 20 136/63 (87) 94 06/08/17 00:49 97.7 72 18 146/70 (95) 95 06/08/17 00:00 83 06/07/17 21:24 97.9 77 18 154/74 (100) 93 06/07/17 20:00 81 06/07/17 19:52 94 Nasal Cannula 4.00 Physical Exam GENERAL: This is a Morbidly obese, well-developed patient, ambulating in room. SKIN: No rashes, ecchymoses or lesions. Cool and dry. EYES: Extraocular motions intact. No scleral icterus. No injection or drainage. NECK: Trachea midline. No lymphadenopathy. Supple, nontender, no meningeal signs. CARDIOVASCULAR: Regular rate and rhythm no murmurs; quiet precordium RESPIRATORY: decreased through with poor air entry, visibly dyspneic on oxygen. GASTROINTESTINAL: morbidly obese, tight but non-tender, nondistended. MUSCULOSKELETAL: 2+ bilateral pitting edema, chronic ; some erythema noted below knees bilaterally NEUROLOGICAL: Awake and alert. No focal deficits. Motor and sensory grossly within normal limits. 4/5 muscle strength in all muscle groups. Normal speech. Laboratory Laboratory Tests Test 06/08/17 08:00 White Blood Count 15.8 Red Blood Count 4.35 Hemoglobin 12.9 Hematocrit 39.9 Mean Corpuscular Volume 91.8 Mean Corpuscular Hemoglobin 29.7 Mean Corpuscular Hemoglobin Concent 32.3 Red Cell Distribution Width 16.9 Platelet Count 130 Mean Platelet Volume 8.7 Neutrophils (%) (Auto) 94.9 Lymphocytes (%) (Auto) 3.4 Monocytes (%) (Auto) 1.5 Eosinophils (%) (Auto) 0.0 Basophils (%) (Auto) 0.2 Neutrophils # (Auto) 15.0 Lymphocytes # (Auto) 0.5 Monocytes # (Auto) 0.2 Eosinophils # (Auto) 0.0 Basophils # (Auto) 0.0 CBC Comment DIFF FINAL Differential Comment Blood Urea Nitrogen 45 Creatinine 2.71 Random Glucose 182 Calcium Level 8.7 Sodium Level 135 Potassium Level 4.1 Chloride Level 98 Carbon Dioxide Level 28.8 Anion Gap 8 Estimat Glomerular Filtration Rate 24 (Maddi Reaves) Result Diagram: 06/08/17 0800 06/08/17 08 Imaging Last Impressions Chest X-Ray 06/08/17 08 Signed Impressions: Service Date/Time: Thursday, June 08, 2017 08:19 - CONCLUSION: 1. Mild right base atelectasis or consolidation. 2. Prominence of the central pulmonary vessels likely related to pulmonary venous hypertension versus mild edema. 3. Cardiomegaly. Cezar Pireto MD Hip and Pelvis X-Ray 06/06/17 0000 Signed Impressions: Service Date/Time: Tuesday, June 06, 2017 11:46 - CONCLUSION: No acute disease. Cezar Prieto MD Chest CT 06/06/17 0000 Signed Impressions: Service Date/Time: Tuesday, June 06, 2017 15:25 - CONCLUSION: 1. Evidence of granulomatous exposure. 2. Suspected bibasal areas of mild atelectasis or consolidation. 3. 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 Cezar Prieto MD (Maddi Reaves) Assessment and Plan Problem List: (1) Acute worsening of stage 3 chronic kidney disease ICD Codes: N18.3 - Chronic kidney disease, stage 3 (moderate) Status: Acute Plan: ROGELIO most likely due to Increased renal vein pressure resulting from CHF Baseline creatinine 1.9, GFR 35 Obtain renal US Obtain UA for analysis Continue antihypertensives, avoid IVF Careful diuresis, see below Repeat labs in AM (2) Shortness of breath ICD Codes: R06.02 - Shortness of breath Plan: Echo ordered Careful diuresis, includes Lasix increased to 80 mg IV BID -This patient has a chronic component to his edema. Attempting to aggressively diurese him will risk worsening ROGELIO. Use RAMÍREZ hose, elevation, low salt diet for fdc management. He has leukocytosis, given Rocephin and Zithromax to cover for pneumonia. Of note he is on steroids at home which may also explain the leukocytosis. CXR reviewed. (3) DM (diabetes mellitus) ICD Codes: E11.9 - DM (diabetes mellitus) Status: Chronic Plan: Maintain glucose 140-180 mg/dL (4) Hypertension ICD Codes: I10 - Hypertension Status: Chronic Plan: Medications as ordered, titrate as needed He is on nifedipine, which can worsen lower extremity edema (Maddi Reaves) Problem List: (1) Acute worsening of stage 3 chronic kidney disease ICD Codes: N18.3 - Chronic kidney disease, stage 3 (moderate) Status: Acute Plan: ROGELIO most likely due to Increased renal vein pressure resulting from CHF Baseline creatinine 1.9, GFR 35 Obtain renal US Obtain UA for analysis Continue antihypertensives, avoid IVF Careful diuresis, see below Repeat labs in AM (2) Shortness of breath ICD Codes: R06.02 - Shortness of breath Plan: Echo ordered Careful diuresis, includes Lasix increased to 80 mg IV BID -This patient has a chronic component to his edema. Attempting to aggressively diurese him will risk worsening ROGELIO. Use RAMÍREZ hose, elevation, low salt diet for fdc management. He has leukocytosis, given Rocephin and Zithromax to cover for pneumonia. Of note he is on steroids at home which may also explain the leukocytosis. CXR reviewed. (3) DM (diabetes mellitus) ICD Codes: E11.9 - DM (diabetes mellitus) Status: Chronic Plan: Maintain glucose 140-180 mg/dL (4) Hypertension ICD Codes: I10 - Hypertension Status: Chronic Plan: Medications as ordered, titrate as needed He is on nifedipine, which can worsen lower extremity edema Assessment and Plan patient was seen and examined on 06/08/17. Agree with above assessment and plan. Continue Lasix, obtain UA and renal US. Obtain echo. (Nicko Matrinez MD) Maddi Reaves Jun 08, 2017 19:49 Nicko Martinez MD June 09, 2017 11:34
[2017-06-08] MEDS: ATORVASTATIN 20 MG TAB PO SCH (21:47)
[2017-06-08] MEDS: traZODone HCL 50 MG TAB PO SCH (21:48)
[2017-06-08] MEDS: SODIUM CHLORIDE 0.9% FLUSH 10 ML FLUSH IV FLUSH PRN (23:28)
[2017-06-09] VITALS (14 sets, daily range): BP systolic 129–150; BP diastolic 62–95; PULSE 81–110; RESP 14–22; TEMP 97.2–97.6; O2SAT 92–99
[2017-06-09 03:39] LABS: BILIRUBIN, URINE NEG (NEG); BLOOD, URINE TRACE (NEG); GLUCOSE,URINE TRACE mg/dL (NEG); HYALINE CAST, URINE 2 /lpf (RARE); KETONE, URINE NEG (NEG); MUCUS URINE FEW /lpf (OCC); NITRITE,URINE NEG (NEG); PH, URINE 5.5 (5.0-8.5); SQUAMOUS EPITHELIAL CELL URINE 1 /hpf (0-5); URINE COLOR COLORLESS (YELLW/STRAW); URINE LEUKOCYTE ESTERASE NEG (NEG)
[2017-06-09] MEDS: RESP: ALBUTEROL 2.5 MG/IPRATROPIUM 0.5 MG NEB (SCH) NEB ×5 (03:43→20:44)
[2017-06-09] MEDS: SODIUM CHLORIDE 0.9% FLUSH 10 ML FLUSH IV FLUSH PRN ×2 (05:25→23:08)
[2017-06-09] MEDS: methylPREDNISolone SOD SUCC 125 MG/2 ML VIAL IV PUSH SCH ×4 (05:25→23:08)
[2017-06-09 07:57] LABS: BICARBONATE 30.9 MEQ/L (21.0-32.0); CALCIUM 8.7 MG/DL (8.5-10.1); CREATININE 2.68 MG/DL (0.60-1.30)
[2017-06-09 07:59] LABS: PHOSPHORUS 5.2 MG/DL (2.5-4.9)
[2017-06-09] MEDS: ASPIRIN 81 MG CHEW TAB CHEW SCH (08:32)
[2017-06-09] MEDS: PANTOPRAZOLE SOD 20 MG DELAYED RELEASE TAB PO SCH (08:33)
[2017-06-09] MEDS: METOPROLOL TARTRATE 50 MG TAB PO SCH ×2 (08:33→20:50)
[2017-06-09] MEDS: NIFEdipine 30 MG SUSTAINED RELEASE TAB PO SCH ×2 (08:33→20:50)
[2017-06-09] MEDS: ALLOPURINOL 100 MG TAB PO SCH (08:33)
[2017-06-09] MEDS: INSULIN DETEMIR 100 UNITS/ML VIAL SQ SCH ×2 (08:33→20:51)
[2017-06-09] MEDS: ISOSORBIDE MONONITRATE 30 MG CR TAB (IMDUR) PO SCH (08:33)
[2017-06-09] MEDS: METHYLDOPA 500 MG TAB PO SCH ×3 (08:33→17:33)
[2017-06-09] MEDS: INSULIN ASPART SUPPLEMENTAL SCALE SQ SCH ×4 (08:34→20:51)
[2017-06-09] MEDS: SODIUM CHLORIDE 0.9% FLUSH 10 ML FLUSH IV FLUSH SCH ×2 (08:37→20:50)
[2017-06-09] MEDS: ALBUMIN 25% INJ 100 ML IV SCH ×2 (08:37→17:33)
[2017-06-09] MEDS: FUROSEMIDE 40 MG/4 ML VIAL IV PUSH SCH ×2 (09:44→18:00)
[2017-06-09] MEDS ORDERED: RESP: BUDESONIDE 0.5 MG/2 ML NEB NEB ONE (11:00)
--- NOTE | 2017-06-09 11:09 | HHI.PR ---
Subjective Remarks had some sob earlier today. not much urine output yesterday per pt. thinks maybe less than 1 of the urinals. Objective Vitals heart reg lung cta abd s/nt ext some chronic induration and stasis changes of lower ext some areas of pitting. Vital Signs Date Time Temp Pulse Resp B/P (MAP) Pulse Ox O2 Delivery O2 Flow Rate FiO2 06/09/17 08:11 92 Nasal Cannula 4.00 06/09/17 08:00 97.5 92 20 134/74 (94) 96 06/09/17 04:00 97.6 82 14 148/68 (94) 99 06/09/17 03:48 90 06/09/17 03:45 92 Nasal Cannula 4.00 06/09/17 00:00 97.6 86 14 150/83 (105) 95 06/08/17 23:53 92 Nasal Cannula 4.00 06/08/17 23:49 84 06/08/17 20:07 93 Nasal Cannula 4.00 06/08/17 20:00 97.3 78 16 146/78 (100) 95 06/08/17 16:00 76 06/08/17 16:00 97.3 81 20 133/64 (87) 92 06/08/17 12:00 97.7 75 20 125/60 (81) 93 Result Diagram: 06/08/17 0800 06/09/17 0642 Imaging Last Impressions Chest X-Ray 06/06/17 1256 Signed Impressions: Service Date/Time: Tuesday, June 06, 2017 13:22 - CONCLUSION: Cardiomegaly. Cezar Prieto MD Hip and Pelvis X-Ray 06/06/17 0000 Signed Impressions: Service Date/Time: Tuesday, June 06, 2017 11:46 - CONCLUSION: No acute disease. Cezar Prieto MD A/P Problem List: (1) Acute worsening of stage 3 chronic kidney disease ICD Codes: N18.3 - Chronic kidney disease, stage 3 (moderate) Status: Acute Plan: 1. a/ckd 3. diabetic nephropathy. heavy proteinuria. might have nephrotic range 2. copd with exacerbation. 3. volume overload. over 50pound weight gain x 3months. could be new chf. will eval for chf. will need to consider cardiorenal syndrome. 4. htn renal following. pt on iv lasix/albumen. check urine prot. pt reports to me that renal considering HD echo pending to assess LVF might need to d/c ccb and replace cont titrate of levemir and ssi. plan to convert back to home regimen on d/c cont solumedrol then prednisone taper. duonebs. budesonide nebs. PT daily. dvt prophylaxis (2) COPD (chronic obstructive pulmonary disease) ICD Codes: J44.9 - Chronic obstructive pulmonary disease, unspecified Status: Acute (3) Hypertension ICD Codes: I10 - Hypertension Status: Chronic Plan: Continue patient's home metoprolol 50 mg twice daily DC home amlodipine started nifedipine 30 mg twice daily (4) DM (diabetes mellitus) ICD Codes: E11.9 - DM (diabetes mellitus) Status: Chronic Plan: Patient takes Tresiba 60 mg daily and Pioglitazone 30 mg PO daily-the hospital does not carry these medications We will start patient on checks before meals at bedtime with high dose sliding scale insulin coverage Diabetic diet titrate levemir in hospital. (5) Tobacco abuse ICD Codes: Z72.0 - Tobacco abuse Status: Chronic Plan: Counselled encouraged patient to quit smoking patient declined nicotine patch (6) Fall ICD Codes: W19.XXXA - Unspecified fall, initial encounter Status: Acute Plan: Mechanical fall with right hip pain X ray Right Hip and Pelvis No fracture dislocation or lytic lesion seen. No acute disease PT consulted Blair Contreras MD June 09, 2017 11:09
--- NOTE | 2017-06-09 11:20 | HHI.NPPN ---
Subjective Renal Failure: Chronic, Acute, Stage III Interval History Renal function is slightly better. He is having a bedside Echo during exam. (Maddi Reaves) Review of Systems Respiratory Lungs: SOB (Maddi Reaves) Objective Data Data Vital Signs Date Time Temp Pulse Resp B/P (MAP) Pulse Ox O2 Delivery O2 Flow Rate FiO2 06/09/17 08:11 92 Nasal Cannula 4.00 06/09/17 08:00 97.5 92 20 134/74 (94) 96 06/09/17 04:00 97.6 82 14 148/68 (94) 99 06/09/17 03:48 90 06/09/17 03:45 92 Nasal Cannula 4.00 06/09/17 00:00 97.6 86 14 150/83 (105) 95 06/08/17 23:53 92 Nasal Cannula 4.00 06/08/17 23:49 84 06/08/17 20:07 93 Nasal Cannula 4.00 06/08/17 20:00 97.3 78 16 146/78 (100) 95 06/08/17 16:00 76 06/08/17 16:00 97.3 81 20 133/64 (87) 92 06/08/17 12:00 97.7 75 20 125/60 (81) 93 (Maddi Reaves) -: 06/08/17 0800 06/09/17 0642 Imaging Last 72 hours Impressions Chest X-Ray 06/08/17 0800 Signed Impressions: Service Date/Time: Thursday, June 08, 2017 08:19 - CONCLUSION: 1. Mild right base atelectasis or consolidation. 2. Prominence of the central pulmonary vessels likely related to pulmonary venous hypertension versus mild edema. 3. Cardiomegaly. Cezar Prieto MD Chest X-Ray 06/07/17 0800 Signed Impressions: Service Date/Time: Wednesday, June 07, 2017 09:11 - CONCLUSION: No acute disease. Feliberto Villanueva MD Chest X-Ray 06/06/17 1256 Signed Impressions: Service Date/Time: Tuesday, June 06, 2017 13:22 - CONCLUSION: Cardiomegaly. Cezar Prieto MD (Maddi Reaves) Physical Exam General Appearance: Well Developed, Well Nourished, Comfortable (Maddi Reaves) Throat Throat Exam: Oral Mucosa [place] & Moist (Maddi Reaves) Pulmonary Resp Exam: Breath Sounds Equal, Crackles, Decreased Bases (Maddi Reaves) Cardiology CV Exam: Regular, Normal Sinus Rhythm (Maddi Reaves) Gastrointestinal/Abdomen GI Exam: Soft, Non-Tender GI Remarks obese (Maddi Reaves) Musculoskeletal MS Exam: Normal Gait, Normal Tone, Good Strength (Maddi Reaves) Integumentary Skin Exam: Warm, Dry, Intact (Maddi Reaves) Extremeties Extremities Exam: Pedal Pulses Palpable, Moderate Edema, Dependent Edema (Maddi Reaves) Neurologic Neuro Exam: Alert, Awake, Oriented, Speech Clear, Moving All Extremities (Maddi Reaves) Psychiatric Psych Exam: Appropriate Responses (Maddi Reaves) Assessment/Plan Discussed Condition With: Patient, Sibling Assessment Summary: ROGELIO/Acute Renal Failure, Diabetes Mellitus, CKD Stage III Problem List: (1) Acute worsening of stage 3 chronic kidney disease ICD Codes: N18.3 - Chronic kidney disease, stage 3 (moderate) Status: Acute Plan: ROGELIO most likely due to Increased renal vein pressure resulting from CHF Baseline creatinine 1.9, GFR 35, may have underlying diabetic nephropathy Renal US is pending Protein quantification ordered Continue antihypertensives, avoid IVF Continue diuresis with Lasix BID Repeat labs in AM (2) Shortness of breath ICD Codes: R06.02 - Shortness of breath Plan: Echo results pending Careful diuresis with Lasix of 80 mg IV BID -This patient has a chronic component to his edema. Attempting to aggressively diurese him will risk worsening ROGELIO. 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 He has leukocytosis, given Rocephin and Zithromax to cover for pneumonia. Of note he is on steroids at home which may also explain the leukocytosis. CXR reviewed. (3) DM (diabetes mellitus) ICD Codes: E11.9 - DM (diabetes mellitus) Status: Chronic Plan: Maintain glucose 140-180 mg/dL (4) Hypertension ICD Codes: I10 - Hypertension Status: Chronic Plan: Medications as ordered, titrate as needed He is on nifedipine, which can worsen lower extremity edema (Maddi Reaves) Plan patient was seen and examined. Agree with above assessment and plan. May have some degree of lower extremity edema due to lymphedema and obesity. Aggressive diuresis may result in azotemia. Agree with echocardiogram: he likely has diastolic dysfunction. Consider changing Lasix to once daily from tomorrow. (Nicko Martinez MD) Maddi Reaves June 09, 2017 11:20 Nicko Martinez MD June 09, 2017 13:45
--- NOTE | 2017-06-09 12:46 | RADRPT ---
EXAM DATE/TIME: 06/09/2017 11:42 [facility] COMPARISON: No previous studies available for comparison. EXTERNAL COMPARISON : [facility], US kidney, bilateral, February 14, 2014 INDICATIONS : Increased BUN/Creatnine. MEDICAL HISTORY : Hypercholesterolemia. Hypertension. Chronic obstructive pulmonary disease. Hard of hearing. Glasses. Dyspnea. Anitcoagulant therapy, ASA. GERD. Renal failure. GOUT. Diabetes. Skin cancer. SURGICAL HISTORY : Left arm graft. Right wrist surgery. Skin cancer removal. ENCOUNTER: Initial ACUITY: 1 day PAIN SCORE: 0/10 LOCATION: Bilateral flank MEASUREMENTS: RIGHT KIDNEY: 9.8 x 5.6 x 5.2 cm LEFT KIDNEY: 13.0 x 6.0 x 5.7 cm FINDINGS: RIGHT KIDNEY: Renal cortex is normal in thickness and echotexture. No hydronephrosis, stone, or solid mass. There is a small cysts measuring 2.4 x 1.2 cm extending off the lower pole. LEFT KIDNEY: Not well-visualized due to the patient's body habitus. Renal cortex is normal in thickness and echote xture. No hydronephrosis, stone, or mass. BLADDER: Bladder appears distended with a volume of 632 cc. There is no mass or wall thickening. CONCLUSION: 1. Suboptimal visualization of the left kidney due to the patient's body habitus. 2. No evidence of hydronephrosis. 3. Small cyst in right kidney. 4. The bladder appears distended. Mike Spring MD on June 09, 2017 at 12:39 Board Certified Radiologist. This report was verified electronically.
--- NOTE | 2017-06-09 12:54 | ECHRPT ---
Indication: CORONARY ATHEROSCLEROSIS CONCLUSIONS Normal left ventricular size. Mild concentric left ventricular hypertrophy. The left ventricular s ystolic function is normal with an estimated ejection fraction in the range of 60-65%. No definite wall mo tion abnormalities. Possible mild aortic valve sclerosis is present. Trace aortic insufficiency. BP: 148 / 68 HR: 82 Rhythm: Sinus MEASUREMENTS (Male / Female) Normal Values Technical Quality:Very technically difficult study 2D ECHO LV Diastolic Diameter PLAX 5.4 cm 4.2 - 5.9 / 3.9 - 5.3 cm LV Systolic Diameter PLAX 3.7 cm IVS Diastolic Thickness 1.2 cm 0.6 - 1.0 / 0.6 - 0.9 cm LVPW Diastolic Thickness 1.2 cm 0.6 - 1.0 / 0.6 - 0.9 cm LV Relative Wall Thickness 0.4 RV Internal Dim ED PLAX 2.9 cm LVOT Diameter 2.0 cm Aortic Root Diameter 3.3 cm LA Systolic Diameter LX 3.1 cm 3.0 - 4.0 / 2.7 - 3.8 cm M-MODE AV Cusp Separation MM 2.0 cm DOPPLER AV Peak Velocity 139.0 cm/s AV Peak Gradient 7.7 mmHg AV Mean Gradient 4.0 mmHg AV Velocity Time Integral 26.4 cm LVOT Peak Velocity 83.5 cm/s LVOT Peak Gradient 2.8 mmHg LVOT Velocity Time Integral 15.8 cm AV Area Cont Eq vti 1.9 cm AV Area Cont Eq pk 1.9 cm Mitral E Point Velocity 90.3 cm/s Mitral A Point Velocity 59.7 cm/s Mitral E to A Ratio 1.5 LV E' Lateral Velocity 10.4 cm/s Mitral E to LV E' Lateral Ratio 8.7 LV E' Septal Velocity 10.2 cm/s Mitral E to LV E' Septal Ratio 8.9 PV Peak Velocity 59.4 cm/s PV Peak Gradient 1.4 mmHg FINDINGS LEFT VENTRICLE Normal left ventricular size. Mild concentric left ventricular hypertrophy. The left ventricular sys tolic function is normal with an estimated ejection fraction in the range of 60-65%. No definite wall mo tion abnormalities. RIGHT VENTRICLE Normal right ventricular size and systolic function. LEFT ATRIUM The left atrial size is upper normal. RIGHT ATRIUM The right atrial size is normal. ATRIAL SEPTUM No atrial level shunt is demonstrated by color flow Doppler interrogation. AORTA The aortic root and proximal ascending aorta are not well visualized. MITRAL VALVE Structurally normal mitral valve. No mitral valve stenosis or regurgitation. AORTIC VALVE Possible mild aortic valve sclerosis is present. Trace aortic insufficiency. TRICUSPID VALVE Structurally normal tricuspid valve. No tricuspid valve stenosis or regurgitation. PULMONARY VALVE The pulmonary valve is not well visualized. VESSELS The inferior vena cava was not well visualized. Klaus Ballesteros MD (Electronically Signed) Final Date:09 Jun 2017 12:53
[2017-06-09] MEDS: RESP: BUDESONIDE 0.5 MG/2 ML NEB NEB SCH (20:44)
[2017-06-09] MEDS: ATORVASTATIN 20 MG TAB PO SCH (20:50)
[2017-06-09] MEDS: traZODone HCL 50 MG TAB PO SCH (20:50)
[2017-06-09] MEDS: LORazepam 0.5 MG TAB PO PRN (21:27)
[2017-06-10] VITALS (12 sets, daily range): BP systolic 129–157; BP diastolic 60–68; PULSE 74–91; RESP 18–20; TEMP 97–97.6; O2SAT 93–97
[2017-06-10] MEDS: RESP: ALBUTEROL 2.5 MG/IPRATROPIUM 0.5 MG NEB (SCH) NEB ×6 (00:06→19:56)
[2017-06-10] MEDS: SODIUM CHLORIDE 0.9% FLUSH 10 ML FLUSH IV FLUSH PRN (05:35)
[2017-06-10] MEDS: methylPREDNISolone SOD SUCC 125 MG/2 ML VIAL IV PUSH SCH (05:35)
[2017-06-10 07:37] LABS: CREATININE 2.86 MG/DL (0.60-1.30)
[2017-06-10 07:38] LABS: BICARBONATE 32.7 MEQ/L (21.0-32.0); CALCIUM 8.3 MG/DL (8.5-10.1)
[2017-06-10] MEDS: RESP: BUDESONIDE 0.5 MG/2 ML NEB NEB SCH ×2 (08:19→19:56)
[2017-06-10] MEDS: INSULIN ASPART SUPPLEMENTAL SCALE SQ SCH ×4 (08:27→21:55)
[2017-06-10] MEDS: ALBUMIN 25% INJ 100 ML IV SCH ×2 (08:27→17:26)
[2017-06-10] MEDS: INSULIN DETEMIR 100 UNITS/ML VIAL SQ SCH ×2 (08:27→21:55)
[2017-06-10] MEDS: FUROSEMIDE 40 MG/4 ML VIAL IV PUSH SCH (09:19)
[2017-06-10] MEDS: ISOSORBIDE MONONITRATE 30 MG CR TAB (IMDUR) PO SCH (09:20)
[2017-06-10] MEDS: ALLOPURINOL 100 MG TAB PO SCH (09:20)
[2017-06-10] MEDS: METHYLDOPA 500 MG TAB PO SCH ×3 (09:20→17:26)
[2017-06-10] MEDS: PANTOPRAZOLE SOD 20 MG DELAYED RELEASE TAB PO SCH (09:20)
[2017-06-10] MEDS: ASPIRIN 81 MG CHEW TAB CHEW SCH (09:20)
[2017-06-10] MEDS: SODIUM CHLORIDE 0.9% FLUSH 10 ML FLUSH IV FLUSH SCH ×2 (09:21→21:54)
[2017-06-10] MEDS: NIFEdipine 30 MG SUSTAINED RELEASE TAB PO SCH ×2 (09:23→21:54)
[2017-06-10] MEDS: METOPROLOL TARTRATE 50 MG TAB PO SCH ×2 (09:23→21:54)
--- NOTE | 2017-06-10 10:17 | HHI.PR ---
Subjective Remarks breathing better. Objective Vitals heart reg lung less rhonci/wheeze abd s/nt ext acute and chronic edema of lower ext improved. Vital Signs Date Time Temp Pulse Resp B/P (MAP) Pulse Ox O2 Delivery O2 Flow Rate FiO2 06/10/17 08:22 94 Nasal Cannula 4.00 06/10/17 04:00 Nasal Cannula 4.00 Humidified 06/10/17 04:00 97.0 91 18 129/65 (86) 93 06/10/17 03:52 86 06/10/17 00:00 Nasal Cannula 4.00 06/10/17 00:00 97.3 90 18 139/68 (91) 95 06/09/17 23:46 89 06/09/17 21:29 108 22 143/78 (99) 96 06/09/17 21:20 110 06/09/17 20:46 93 Nasal Cannula 4.00 06/09/17 20:01 87 06/09/17 20:00 97.4 86 21 138/95 (109) 95 06/09/17 20:00 Nasal Cannula 4.00 06/09/17 16:00 97.2 88 20 129/62 (84) 93 06/09/17 16:00 81 06/09/17 12:00 97.4 82 20 133/62 (85) 96 Result Diagram: 06/08/17 0800 06/10/17 0636 Imaging Last Impressions Chest X-Ray 06/06/17 1256 Signed Impressions: Service Date/Time: Tuesday, June 06, 2017 13:22 - CONCLUSION: Cardiomegaly. Cezar Prieto MD Hip and Pelvis X-Ray 06/06/17 0000 Signed Impressions: Service Date/Time: Tuesday, June 06, 2017 11:46 - CONCLUSION: No acute disease. Cezar Prieto MD A/P Problem List: (1) Acute worsening of stage 3 chronic kidney disease ICD Codes: N18.3 - Chronic kidney disease, stage 3 (moderate) Status: Acute Plan: 1. a/ckd 3. diabetic nephropathy. heavy proteinuria. might have nephrotic range volume overload. over 50pound weight gain x 3months. 2. copd with exacerbation. 3. htn 2d Echo 06/09: Normal left ventricular size. Mild concentric left ventricular hypertrophy. The left ventricular systolic function is normal with an estimated ejection fraction in the range of 60-65%. No definite wall motion abnormalities. Possible mild aortic valve sclerosis is present. Trace aortic insufficiency. renal following. pt on iv lasix/albumen. will defer diuretic management to renal. check urine prot. pending. might need to d/c ccb and replace cont titrate of levemir and ssi. plan to convert back to home regimen on d/c. will convert iv solumedrol to prednisone taper today. duonebs. budesonide nebs. PT daily. dvt prophylaxis (2) COPD (chronic obstructive pulmonary disease) ICD Codes: J44.9 - Chronic obstructive pulmonary disease, unspecified Status: Acute (3) Hypertension ICD Codes: I10 - Hypertension Status: Chronic Plan: Continue patient's home metoprolol 50 mg twice daily DC home amlodipine started nifedipine 30 mg twice daily (4) DM (diabetes mellitus) ICD Codes: E11.9 - DM (diabetes mellitus) Status: Chronic Plan: Patient takes Tresiba 60 mg daily and Pioglitazone 30 mg PO daily-the hospital does not carry these medications We will start patient on checks before meals at bedtime with high dose sliding scale insulin coverage Diabetic diet titrate levemir in hospital. (5) Tobacco abuse ICD Codes: Z72.0 - Tobacco abuse Status: Chronic Plan: Counselled encouraged patient to quit smoking patient declined nicotine patch (6) Fall ICD Codes: W19.XXXA - Unspecified fall, initial encounter Status: Acute Plan: Mechanical fall with right hip pain X ray Right Hip and Pelvis No fracture dislocation or lytic lesion seen. No acute disease PT consulted Blair Contreras MD June 10, 2017 10:17
[2017-06-10] MEDS: LACTIC ACID (AMMONIUM LACTATE) 12% LOTION 225 GM BTL TOPICAL SCH ×2 (12:51→21:56)
--- NOTE | 2017-06-10 14:31 | HHI.NPPN ---
Subjective Renal Failure: Chronic, Acute, Stage III Interval History Resting quietly. Renal function is worse. Excellent urine output. (Maddi Reaves) Review of Systems General Constitutional: Weight Change (Maddi Reaves) Respiratory Lungs: SOB (Maddi Reaves) Cardiovascular Cardiac: Edema (Maddi Reaves) Objective Data Data 06/10/17 06/11/17 19:00 07:00 Output Total 1100 ml Balance -1100 ml Output Urine Total 1100 ml Vital Signs Date Time Temp Pulse Resp B/P (MAP) Pulse Ox O2 Delivery O2 Flow Rate FiO2 06/10/17 12:02 97.4 84 18 137/62 (87) 95 06/10/17 08:22 94 Nasal Cannula 4.00 06/10/17 08:02 97.5 81 18 133/60 (84) 95 06/10/17 08:00 80 06/10/17 07:00 Nasal Cannula 4.00 06/10/17 04:00 Nasal Cannula 4.00 Humidified 06/10/17 04:00 97.0 91 18 129/65 (86) 93 06/10/17 03:52 86 06/10/17 00:00 Nasal Cannula 4.00 06/10/17 00:00 97.3 90 18 139/68 (91) 95 06/09/17 23:46 89 06/09/17 21:29 108 22 143/78 (99) 96 06/09/17 21:20 110 06/09/17 20:46 93 Nasal Cannula 4.00 06/09/17 20:01 87 06/09/17 20:00 97.4 86 21 138/95 (109) 95 06/09/17 20:00 Nasal Cannula 4.00 06/09/17 16:00 97.2 88 20 129/62 (84) 93 06/09/17 16:00 81 (Maddi Reaves) -: 06/08/17 0800 06/10/17 0636 Imaging Last 72 hours Impressions Renal Ultrasound 06/09/17 0000 Signed Impressions: Service Date/Time: Friday, June 09, 2017 11:42 - CONCLUSION: 1. Suboptimal visualization of the left kidney due to the patient's body habitus. 2. No evidence of hydronephrosis. 3. Small cyst in right kidney. 4. The bladder appears distended. Mike Spring MD Chest X-Ray 06/08/17 0800 Signed Impressions: Service Date/Time: Thursday, June 08, 2017 08:19 - CONCLUSION: 1. Mild right base atelectasis or consolidation. 2. Prominence of the central pulmonary vessels likely related to pulmonary venous hypertension versus mild edema. 3. Cardiomegaly. Cezar Prieto MD (Maddi Reaves B. [employer]PERATOR) Physical Exam General Appearance: Well Developed, Well Nourished, Comfortable, Sleeping, Obese (Maddi Reaves B. [employer] OPERATOR) Throat Throat Exam: Oral Mucosa [place] & Moist (Maddi Reaves B. [employer] OPERATOR) Pulmonary Resp Exam: Breath Sounds Equal, Crackles, Decreased Bases (Maddi Reaves B. [employer] PRESS OPERATOR) Cardiology CV Exam: Regular, Normal Sinus Rhythm (Maddi Reaves B. [employer] OPERATOR) Gastrointestinal/Abdomen GI Exam: Soft, Non-Tender GI Remarks obese (Maddi Reaves B. [employer] OPERATOR) Musculoskeletal MS Exam: Normal Gait, Normal Tone, Good Strength (Maddi Reaves B. [employer] PR[employer] OPERATOR) Integumentary Skin Exam: Warm, Dry, Intact (Maddi Reaves B. [employer] OPERATOR) Extremeties Extremities Exam: Pedal Pulses Palpable, Moderate Edema, Dependent Edema (Maddi Reaves B. [employer] OPERATOR) Neurologic Neuro Exam: Alert, Awake, Oriented, Speech Clear, Moving All Extremities (Maddi Reaves B. [employer] OPERATOR) Psychiatric Psych Exam: Appropriate Responses (Maddi Reaves) Assessment/Plan Discussed Condition With: Patient, Sibling Assessment Summary: ROGELIO/Acute Renal Failure, Diabetes Mellitus, CKD Stage III Problem List: (1) Acute worsening of stage 3 chronic kidney disease ICD Codes: N18.3 - Chronic kidney disease, stage 3 (moderate) Status: Acute Plan: Renal function is worse. Baseline creatinine 1.9, GFR 35. He has heavy proteinuria (4g). May have diabetic nephropathy. Serum electrophoresis in process. Continue antihypertensives, avoid IVF Was on Lasix 80 mg IV BID. Hold starting today and monitor. Echo shows EF 60-65%. Likely has component of lymphedema and aggressive diuresis will worsen renal function. He is non oliguric. PO fluids encouraged. Repeat labs in AM (2) Shortness of breath ICD Codes: R06.02 - Shortness of breath Plan: Echo reviewed Hold diuresis, see above Shortness of breath improved. (3) DM (diabetes mellitus) ICD Codes: E11.9 - DM (diabetes mellitus) Status: Chronic Plan: Maintain glucose 140-180 mg/dL (4) Hypertension ICD Codes: I10 - Hypertension Status: Chronic Plan: Medications as ordered, titrate as needed He is on nifedipine, which can worsen lower extremity edema (Maddi Reaves) Plan patient was seen and examined. Agree with above assessment and plan. Would recommend to change Nifedipine to Cardizem. (Nicko Martinez MD) Maddi Reaves June 10, 2017 14:31 Nicko Martinez MD June 10, 2017 21:36
[2017-06-10] MEDS ORDERED: FUROSEMIDE 100 MG/10 ML VIAL IV PUSH SCH (18:00)
[2017-06-10 18:50] LABS: ALB/GLOB RATIO (SPE) 1.46 (1.39-2.23)
[2017-06-10] MEDS: traZODone HCL 50 MG TAB PO SCH (21:54)
[2017-06-10] MEDS: ATORVASTATIN 20 MG TAB PO SCH (21:54)
[2017-06-10] MEDS: predniSONE 20 MG TAB PO SCH (21:54)
[2017-06-11] VITALS (12 sets, daily range): BP systolic 133–158; BP diastolic 57–92; PULSE 70–94; RESP 18–19; TEMP 97.3–97.8; O2SAT 93–96
[2017-06-11] MEDS: RESP: ALBUTEROL 2.5 MG/IPRATROPIUM 0.5 MG NEB (SCH) NEB ×7 (00:15→23:17)
[2017-06-11 05:29] LABS: BICARBONATE 29.8 MEQ/L (21.0-32.0); CALCIUM 8.1 MG/DL (8.5-10.1); CREATININE 2.77 MG/DL (0.60-1.30)
[2017-06-11] MEDS: RESP: BUDESONIDE 0.5 MG/2 ML NEB NEB SCH ×2 (08:20→20:01)
[2017-06-11] MEDS: predniSONE 20 MG TAB PO SCH ×2 (08:36→21:23)
[2017-06-11] MEDS: ALLOPURINOL 100 MG TAB PO SCH (08:36)
[2017-06-11] MEDS: ASPIRIN 81 MG CHEW TAB CHEW SCH (08:36)
[2017-06-11] MEDS: PANTOPRAZOLE SOD 20 MG DELAYED RELEASE TAB PO SCH (08:36)
[2017-06-11] MEDS: CARVEDILOL 6.25 MG TAB PO SCH ×2 (08:36→21:22)
[2017-06-11] MEDS: ISOSORBIDE MONONITRATE 30 MG CR TAB (IMDUR) PO SCH (08:36)
[2017-06-11] MEDS: SODIUM CHLORIDE 0.9% FLUSH 10 ML FLUSH IV FLUSH SCH ×2 (08:37→21:24)
[2017-06-11] MEDS: INSULIN DETEMIR 100 UNITS/ML VIAL SQ SCH ×2 (08:37→21:24)
[2017-06-11] MEDS: INSULIN ASPART SUPPLEMENTAL SCALE SQ SCH ×4 (08:37→21:23)
[2017-06-11] MEDS: LACTIC ACID (AMMONIUM LACTATE) 12% LOTION 225 GM BTL TOPICAL SCH ×2 (08:38→21:23)
[2017-06-11] MEDS: METHYLDOPA 500 MG TAB PO SCH ×3 (08:57→17:37)
[2017-06-11] MEDS ORDERED: FUROSEMIDE 100 MG/10 ML VIAL IV PUSH SCH (09:00)
--- NOTE | 2017-06-11 10:26 | HHI.PR ---
Subjective Remarks pt says since stopping the iv lasix...he is starting to swell more and much less urine. Objective Vitals heart reg lung rhonci eliseo. improved abd s/nt ext acute and chronic edema changes lower extremities Vital Signs Date Time Temp Pulse Resp B/P (MAP) Pulse Ox O2 Delivery O2 Flow Rate FiO2 06/11/17 08:23 96 Nasal Cannula 5.00 06/11/17 08:02 97.5 78 18 133/75 (94) 94 06/11/17 04:00 74 06/11/17 04:00 97.4 75 19 157/92 (113) 93 06/11/17 00:17 94 Nasal Cannula 5.00 06/11/17 00:00 97.7 93 19 135/66 (89) 93 06/11/17 00:00 94 06/10/17 20:00 Nasal Cannula 4.00 06/10/17 20:00 97.6 87 20 157/67 (97) 97 06/10/17 20:00 86 06/10/17 19:56 93 Nasal Cannula 4.00 06/10/17 16:02 97.5 74 19 147/65 (92) 96 06/10/17 16:00 74 06/10/17 12:02 97.4 84 18 137/62 (87) 95 06/10/17 12:00 82 Result Diagram: 06/08/17 0800 06/11/17 0428 Imaging Last Impressions Chest X-Ray 06/06/17 1256 Signed Impressions: Service Date/Time: Tuesday, June 06, 2017 13:22 - CONCLUSION: Cardiomegaly. Cezar Prieto MD Hip and Pelvis X-Ray 06/06/17 0000 Signed Impressions: Service Date/Time: Tuesday, June 06, 2017 11:46 - CONCLUSION: No acute disease. Cezar Prieto MD A/P Problem List: (1) Acute worsening of stage 3 chronic kidney disease ICD Codes: N18.3 - Chronic kidney disease, stage 3 (moderate) Status: Acute Plan: 1. a/ckd 3. diabetic nephropathy. heavy proteinuria. appears to have nephrotic range protein. volume overload. over 50pound weight gain x 3months. 2. copd with exacerbation. 3. htn 2d Echo 06/09: Normal left ventricular size. Mild concentric left ventricular hypertrophy. The left ventricular systolic function is normal with an estimated ejection fraction in the range of 60-65%. No definite wall motion abnormalities. Possible mild aortic valve sclerosis is present. Trace aortic insufficiency. renal following. diuretics on hold per renal. await further recommendation ccb stopped. convert metoprolol to coreg for better bp control cont titrate of levemir and ssi. plan to convert back to home regimen on d/c. prednisone taper duonebs. budesonide nebs. PT daily. dvt prophylaxis (2) COPD (chronic obstructive pulmonary disease) ICD Codes: J44.9 - Chronic obstructive pulmonary disease, unspecified Status: Acute (3) Hypertension ICD Codes: I10 - Hypertension Status: Chronic Plan: Continue patient's home metoprolol 50 mg twice daily DC home amlodipine started nifedipine 30 mg twice daily (4) DM (diabetes mellitus) ICD Codes: E11.9 - DM (diabetes mellitus) Status: Chronic Plan: Patient takes Tresiba 60 mg daily and Pioglitazone 30 mg PO daily-the hospital does not carry these medications We will start patient on checks before meals at bedtime with high dose sliding scale insulin coverage Diabetic diet titrate levemir in hospital. (5) Tobacco abuse ICD Codes: Z72.0 - Tobacco abuse Status: Chronic Plan: Counselled encouraged patient to quit smoking patient declined nicotine patch (6) Fall ICD Codes: W19.XXXA - Unspecified fall, initial encounter Status: Acute Plan: Mechanical fall with right hip pain X ray Right Hip and Pelvis No fracture dislocation or lytic lesion seen. No acute disease PT consulted Blair Contreras MD June 11, 2017 10:26
[2017-06-11] MEDS: ATORVASTATIN 20 MG TAB PO SCH (21:22)
[2017-06-11] MEDS: traZODone HCL 50 MG TAB PO SCH (21:24)
[2017-06-12] VITALS (11 sets, daily range): BP systolic 152–169; BP diastolic 69–84; PULSE 74–91; RESP 18–20; TEMP 97.3–98.4; O2SAT 93–96
[2017-06-12] MEDS: RESP: ALBUTEROL 2.5 MG/IPRATROPIUM 0.5 MG NEB (SCH) NEB ×6 (04:00→23:41)
[2017-06-12] MEDS: INSULIN ASPART SUPPLEMENTAL SCALE SQ SCH ×4 (08:00→21:38)
[2017-06-12] MEDS: RESP: BUDESONIDE 0.5 MG/2 ML NEB NEB SCH ×2 (08:28→19:12)
[2017-06-12 08:32] LABS: BICARBONATE 34.6 MEQ/L (21.0-32.0); CALCIUM 8.3 MG/DL (8.5-10.1); CREATININE 2.43 MG/DL (0.60-1.30)
[2017-06-12] MEDS: ALLOPURINOL 100 MG TAB PO SCH (08:52)
[2017-06-12] MEDS: predniSONE 20 MG TAB PO SCH ×2 (08:52→21:36)
[2017-06-12] MEDS: CARVEDILOL 6.25 MG TAB PO SCH (08:52)
[2017-06-12] MEDS: PANTOPRAZOLE SOD 20 MG DELAYED RELEASE TAB PO SCH (08:52)
[2017-06-12] MEDS: ASPIRIN 81 MG CHEW TAB CHEW SCH (08:52)
[2017-06-12] MEDS: ISOSORBIDE MONONITRATE 30 MG CR TAB (IMDUR) PO SCH (08:52)
[2017-06-12] MEDS: SODIUM CHLORIDE 0.9% FLUSH 10 ML FLUSH IV FLUSH SCH ×2 (08:52→21:36)
[2017-06-12] MEDS: LACTIC ACID (AMMONIUM LACTATE) 12% LOTION 225 GM BTL TOPICAL SCH ×2 (08:53→21:40)
[2017-06-12] MEDS: INSULIN DETEMIR 100 UNITS/ML VIAL SQ SCH ×2 (08:53→21:37)
[2017-06-12] MEDS: METHYLDOPA 500 MG TAB PO SCH ×3 (08:57→17:46)
--- NOTE | 2017-06-12 11:38 | HHI.PR ---
Subjective Remarks still with some sob c/o lower ext swelling. Objective Vitals heart reg lung rhonci abd s/nt ext lower ext edema Vital Signs Date Time Temp Pulse Resp B/P (MAP) Pulse Ox O2 Delivery O2 Flow Rate FiO2 06/12/17 08:32 96 Nasal Cannula 3.00 06/12/17 08:00 Nasal Cannula 3.00 06/12/17 08:00 80 06/12/17 07:35 97.7 75 20 161/84 (109) 95 06/12/17 04:25 86 06/12/17 00:25 85 06/12/17 00:00 98.4 91 18 154/69 (97) 94 06/11/17 21:30 Nasal Cannula 4.00 Humidified 06/11/17 20:06 81 06/11/17 20:01 94 Nasal Cannula 4.00 06/11/17 20:00 97.6 89 19 147/68 (94) 93 06/11/17 16:02 97.8 77 19 144/63 (90) 96 06/11/17 16:00 70 06/11/17 12:20 97.3 70 18 158/57 (90) 94 Result Diagram: 06/08/17 0800 06/12/17 0630 Imaging Last Impressions Chest X-Ray 06/06/17 1256 Signed Impressions: Service Date/Time: Tuesday, June 06, 2017 13:22 - CONCLUSION: Cardiomegaly. Cezar Prieto MD Hip and Pelvis X-Ray 06/06/17 0000 Signed Impressions: Service Date/Time: Tuesday, June 06, 2017 11:46 - CONCLUSION: No acute disease. Cezar Prieto MD A/P Problem List: (1) Acute worsening of stage 3 chronic kidney disease ICD Codes: N18.3 - Chronic kidney disease, stage 3 (moderate) Status: Acute Plan: 1. a/ckd 3. diabetic nephropathy. heavy proteinuria. appears to have nephrotic range protein. volume overload. over 50pound weight gain x 3months. 2. copd with exacerbation. 3. htn 2d Echo 06/09: Normal left ventricular size. Mild concentric left ventricular hypertrophy. The left ventricular systolic function is normal with an estimated ejection fraction in the range of 60-65%. No definite wall motion abnormalities. Possible mild aortic valve sclerosis is present. Trace aortic insufficiency. renal following. diuretics resumed po ccb stopped. converted metoprolol to coreg for better bp control. titrate cont titrate of levemir and ssi. plan to convert back to home regimen on d/c. prednisone taper called [facility] to refer for outpatient lymphedema clinic radha. budesonide nebs. PT daily. dvt prophylaxis (2) COPD (chronic obstructive pulmonary disease) ICD Codes: J44.9 - Chronic obstructive pulmonary disease, unspecified Status: Acute (3) Hypertension ICD Codes: I10 - Hypertension Status: Chronic Plan: Continue patient's home metoprolol 50 mg twice daily DC home amlodipine started nifedipine 30 mg twice daily (4) DM (diabetes mellitus) ICD Codes: E11.9 - DM (diabetes mellitus) Status: Chronic Plan: Patient takes Tresiba 60 mg daily and Pioglitazone 30 mg PO daily-the hospital does not carry these medications We will start patient on checks before meals at bedtime with high dose sliding scale insulin coverage Diabetic diet titrate levemir in hospital. (5) Tobacco abuse ICD Codes: Z72.0 - Tobacco abuse Status: Chronic Plan: Counselled encouraged patient to quit smoking patient declined nicotine patch (6) Fall ICD Codes: W19.XXXA - Unspecified fall, initial encounter Status: Acute Plan: Mechanical fall with right hip pain X ray Right Hip and Pelvis No fracture dislocation or lytic lesion seen. No acute disease PT consulted Blair Contreras MD June 12, 2017 11:38
[2017-06-12] MEDS: FUROSEMIDE 40 MG TAB PO SCH (12:45)
--- NOTE | 2017-06-12 13:23 | HHI.NPPN ---
Subjective Renal Failure: Chronic, Acute, Stage III Interval History Diuretics were held yesterday. Edema persists, may be slightly worse. Renal function is better. (Maddi Reaves) Review of Systems General Constitutional: Weight Change (Maddi Reaves) Respiratory Lungs: SOB (Maddi Reaves) Cardiovascular Cardiac: Edema (Maddi Reaves) Objective Data Data Vital Signs Date Time Temp Pulse Resp B/P (MAP) Pulse Ox O2 Delivery O2 Flow Rate FiO2 06/12/17 11:20 97.6 75 20 169/78 (108) 94 06/12/17 08:32 96 Nasal Cannula 3.00 06/12/17 08:00 Nasal Cannula 3.00 06/12/17 08:00 80 06/12/17 07:35 97.7 75 20 161/84 (109) 95 06/12/17 04:25 86 06/12/17 00:25 85 06/12/17 00:00 98.4 91 18 154/69 (97) 94 06/11/17 21:30 Nasal Cannula 4.00 Humidified 06/11/17 20:06 81 06/11/17 20:01 94 Nasal Cannula 4.00 06/11/17 20:00 97.6 89 19 147/68 (94) 93 06/11/17 16:02 97.8 77 19 144/63 (90) 96 06/11/17 16:00 70 (Maddi Reaves) -: 06/08/17 0800 06/12/17 0630 Physical Exam General Appearance: Well Developed, Well Nourished, Comfortable, Obese (Maddi Reaves) Throat Throat Exam: Oral Mucosa [place] & Moist (Maddi Reaves) Pulmonary Resp Exam: Breath Sounds Equal, Crackles, Rhonchi, Decreased Bases Resp Remarks wheezing (Maddi Reaves) Cardiology CV Exam: Regular, Normal Sinus Rhythm (Maddi Reaves) Gastrointestinal/Abdomen GI Exam: Soft, Non-Tender GI Remarks obese (Maddi Reaves) Musculoskeletal MS Exam: Normal Gait, Normal Tone, Good Strength (Maddi Reaves) Integumentary Skin Exam: Warm, Dry, Intact (Maddi Reaves) Extremeties Extremities Exam: Pedal Pulses Palpable, Moderate Edema, Dependent Edema (Maddi Reaves) Neurologic Neuro Exam: Alert, Awake, Oriented, Speech Clear, Moving All Extremities (Maddi Reaves) Psychiatric Psych Exam: Appropriate Responses (Maddi Reaves) Assessment/Plan Discussed Condition With: Patient, Sibling Assessment Summary: ROGELIO/Acute Renal Failure, Diabetes Mellitus, CKD Stage III Problem List: (1) Acute worsening of stage 3 chronic kidney disease ICD Codes: N18.3 - Chronic kidney disease, stage 3 (moderate) Status: Acute Plan: Renal function is better today. Baseline creatinine 1.9, GFR 35. He has heavy proteinuria (4g). May have diabetic nephropathy. Serum electrophoresis is negative. Continue antihypertensives, avoid IVF Lasix changed to 40 mg PO daily. He is non oliguric. PO fluids encouraged. Repeat labs in AM *Echo shows EF 60-65%. Likely has component of lymphedema and aggressive diuresis will worsen renal function. (2) Shortness of breath ICD Codes: R06.02 - Shortness of breath Plan: Echo reviewed Hold diuresis, see above Shortness of breath improved. Needs weight loss Also has LAMONTE would benefit from CPAP (3) DM (diabetes mellitus) ICD Codes: E11.9 - DM (diabetes mellitus) Status: Chronic Plan: Maintain glucose 140-180 mg/dL (4) Hypertension ICD Codes: I10 - Hypertension Status: Chronic Plan: Medications adjusted Off nifedipine and amlodipine which cause lower extremity edema. Also off metoprolol On Coreg, isosorbide, clonidine; add Cardizem. (Maddi Reaves) Plan Patient was seen and examined. Agree with above assessment and plan. (Nicko Martinez MD) Maddi Reaves June 12, 2017 13:23 Nicko Martinez MD June 12, 2017 16:20
--- NOTE | 2017-06-12 14:54 | HHI.FF ---
Face to Face Verification Diagnosis: (1) Acute worsening of stage 3 chronic kidney disease (2) DM (diabetes mellitus) (3) Hyperlipidemia (4) Hypertension (5) COPD (chronic obstructive pulmonary disease) Physical Therapy Order: Evaluate and Treat Occupational Therapy Order: Evaluate and Treat (lymphedema) Home Health Nursing Order: Signs/symptoms of disease process Oxygen administration education Medication education-adverse effect I have seen patient Saitnder Guardado on 06/12/17. My clinical findings support the need for the requested home health care services because: Ltd mobility - disease progression I certify that my clinical findings support that this patient is homebound because: Unsteady gait/balance Agueda Bagley June 12, 2017 14:54 Jas Santoyo DO June 16, 2017 22:34 Abby Young June 17, 2017 08:48
[2017-06-12] MEDS: DILTIAZEM-CD 120 MG CAP ER PO SCH (17:46)
[2017-06-12] MEDS: ATORVASTATIN 20 MG TAB PO SCH (21:36)
[2017-06-12] MEDS: traZODone HCL 50 MG TAB PO SCH (21:37)
[2017-06-12] MEDS: CARVEDILOL 12.5 MG TAB PO SCH (21:37)
[2017-06-13] VITALS (9 sets, daily range): BP systolic 156–178; BP diastolic 74–84; PULSE 68–93; RESP 18–20; TEMP 97.3–98.1; O2SAT 90–97
[2017-06-13] MEDS: RESP: ALBUTEROL 2.5 MG/IPRATROPIUM 0.5 MG NEB (SCH) NEB ×5 (05:20→19:56)
[2017-06-13] MEDS: RESP: BUDESONIDE 0.5 MG/2 ML NEB NEB SCH ×2 (07:26→19:56)
[2017-06-13] MEDS: LACTIC ACID (AMMONIUM LACTATE) 12% LOTION 225 GM BTL TOPICAL SCH ×2 (09:00→21:00)
[2017-06-13] MEDS: SODIUM CHLORIDE 0.9% FLUSH 10 ML FLUSH IV FLUSH SCH ×2 (09:00→21:00)
[2017-06-13 09:20] LABS: BICARBONATE 36.7 MEQ/L (21.0-32.0); CALCIUM 8.5 MG/DL (8.5-10.1); CREATININE 2.59 MG/DL (0.60-1.30)
[2017-06-13] MEDS: PANTOPRAZOLE SOD 20 MG DELAYED RELEASE TAB PO SCH (09:37)
[2017-06-13] MEDS: ALLOPURINOL 100 MG TAB PO SCH (09:38)
[2017-06-13] MEDS: CARVEDILOL 12.5 MG TAB PO SCH ×2 (09:38→21:16)
[2017-06-13] MEDS: ASPIRIN 81 MG CHEW TAB CHEW SCH (09:38)
[2017-06-13] MEDS: predniSONE 20 MG TAB PO SCH ×2 (09:38→21:16)
[2017-06-13] MEDS: METHYLDOPA 500 MG TAB PO SCH ×3 (09:38→18:11)
[2017-06-13] MEDS: DILTIAZEM-CD 120 MG CAP ER PO SCH (09:38)
[2017-06-13] MEDS: ISOSORBIDE MONONITRATE 30 MG CR TAB (IMDUR) PO SCH (09:38)
[2017-06-13] MEDS: FUROSEMIDE 40 MG TAB PO SCH (09:38)
[2017-06-13] MEDS: INSULIN ASPART SUPPLEMENTAL SCALE SQ SCH ×4 (09:39→21:00)
[2017-06-13] MEDS: INSULIN DETEMIR 100 UNITS/ML VIAL SQ SCH ×2 (09:39→21:00)
--- NOTE | 2017-06-13 10:30 | HHI.PR ---
Subjective Remarks breathing is slowly improving. Objective Vitals heart reg lung rhonci but better abd s/nt ext lower ext edema. shanice wraps. Vital Signs Date Time Temp Pulse Resp B/P (MAP) Pulse Ox O2 Delivery O2 Flow Rate FiO2 06/13/17 08:00 97.8 69 20 157/79 (105) 97 06/13/17 07:26 Nasal Cannula 3.00 06/13/17 04:00 97.9 90 18 156/84 (108) 97 06/13/17 00:00 97.5 93 18 164/74 (104) 94 06/12/17 20:00 97.6 86 19 162/77 (105) 93 06/12/17 16:00 97.3 83 19 152/80 (104) 95 06/12/17 16:00 77 06/12/17 15:31 94 Nasal Cannula 3.00 06/12/17 12:00 74 06/12/17 11:20 97.6 75 20 169/78 (108) 94 Result Diagram: 06/13/17 0737 Imaging Last Impressions Chest X-Ray 06/06/17 1256 Signed Impressions: Service Date/Time: Tuesday, June 06, 2017 13:22 - CONCLUSION: Cardiomegaly. Cezar Prieto MD Hip and Pelvis X-Ray 06/06/17 0000 Signed Impressions: Service Date/Time: Tuesday, June 06, 2017 11:46 - CONCLUSION: No acute disease. Cezar Prieto MD A/P Problem List: (1) Acute worsening of stage 3 chronic kidney disease ICD Codes: N18.3 - Chronic kidney disease, stage 3 (moderate) Status: Acute Plan: 1. a/ckd 3. diabetic nephropathy. heavy proteinuria. appears to have nephrotic range protein. volume overload. over 50pound weight gain x 3months. 2. copd with exacerbation. 3. htn 2d Echo 06/09: Normal left ventricular size. Mild concentric left ventricular hypertrophy. The left ventricular systolic function is normal with an estimated ejection fraction in the range of 60-65%. No definite wall motion abnormalities. Possible mild aortic valve sclerosis is present. Trace aortic insufficiency. renal following. diuretics resumed po we contacted cp who says [facility] can do lymphedema treatement pt currently has lower ext shanice wraps converted metoprolol to coreg for better bp control. titrate cont titrate of levemir and ssi. plan to convert back to home regimen on d/c. prednisone taper duonebs. budesonide nebs. PT daily. dvt prophylaxis probably d/[facility] home [facility] Thursday (2) COPD (chronic obstructive pulmonary disease) ICD Codes: J44.9 - Chronic obstructive pulmonary disease, unspecified Status: Acute (3) Hypertension ICD Codes: I10 - Hypertension Status: Chronic Plan: Continue patient's home metoprolol 50 mg twice daily DC home amlodipine started nifedipine 30 mg twice daily (4) DM (diabetes mellitus) ICD Codes: E11.9 - DM (diabetes mellitus) Status: Chronic Plan: Patient takes Tresiba 60 mg daily and Pioglitazone 30 mg PO daily-the hospital does not carry these medications We will start patient on checks before meals at bedtime with high dose sliding scale insulin coverage Diabetic diet titrate levemir in hospital. (5) Tobacco abuse ICD Codes: Z72.0 - Tobacco abuse Status: Chronic Plan: Counselled encouraged patient to quit smoking patient declined nicotine patch (6) Fall ICD Codes: W19.XXXA - Unspecified fall, initial encounter Status: Acute Plan: Mechanical fall with right hip pain X ray Right Hip and Pelvis No fracture dislocation or lytic lesion seen. No acute disease PT consulted Blair Contreras MD June 13, 2017 10:30
--- NOTE | 2017-06-13 17:20 | HHI.NPPN ---
Subjective Renal Failure: Chronic, Acute, Stage III Review of Systems General Constitutional: Weight Change Respiratory Lungs: SOB Cardiovascular Cardiac: Edema Objective Data Data Vital Signs Date Time Temp Pulse Resp B/P (MAP) Pulse Ox O2 Delivery O2 Flow Rate FiO2 06/13/17 16:00 82 06/13/17 12:00 69 06/13/17 08:00 74 06/13/17 08:00 97.8 69 20 157/79 (105) 97 06/13/17 07:26 Nasal Cannula 3.00 06/13/17 07:00 Nasal Cannula 3.00 06/13/17 04:00 97.9 90 18 156/84 (108) 97 06/13/17 00:00 97.5 93 18 164/74 (104) 94 06/12/17 20:00 97.6 86 19 162/77 (105) 93 -: 06/13/17 0737 Physical Exam General Appearance: Well Developed, Well Nourished, Comfortable, Obese Throat Throat Exam: Oral Mucosa [place] & Moist Pulmonary Resp Exam: Breath Sounds Equal, Crackles, Rhonchi, Decreased Bases Cardiology CV Exam: Regular, Normal Sinus Rhythm Gastrointestinal/Abdomen GI Exam: Soft, Non-Tender Musculoskeletal MS Exam: Normal Gait, Normal Tone, Good Strength Integumentary Skin Exam: Warm, Dry, Intact Extremeties Extremities Exam: Pedal Pulses Palpable, Moderate Edema, Dependent Edema Neurologic Neuro Exam: Alert, Awake, Oriented, Speech Clear, Moving All Extremities Psychiatric Psych Exam: Appropriate Responses Assessment/Plan Discussed Condition With: Patient, Sibling Assessment Summary: ROGELIO/Acute Renal Failure, Diabetes Mellitus, CKD Stage III Problem List: (1) Acute worsening of stage 3 chronic kidney disease ICD Codes: N18.3 - Chronic kidney disease, stage 3 (moderate) Status: Acute Plan: Renal function is better today. Baseline creatinine 1.9, GFR 35. He has heavy proteinuria (4g). May have diabetic nephropathy. Serum electrophoresis is negative. Continue antihypertensives, avoid IVF Lasix on 40 mg PO daily. Creatinine 2.5 today He is non oliguric. PO fluids encouraged. Repeat labs in AM *Echo shows EF 60-65%. Likely has component of lymphedema and aggressive diuresis will worsen renal function. (2) Shortness of breath ICD Codes: R06.02 - Shortness of breath Plan: Echo reviewed Hold diuresis, see above Shortness of breath improved. Needs weight loss Also has LAMONTE would benefit from CPAP (3) DM (diabetes mellitus) ICD Codes: E11.9 - DM (diabetes mellitus) Status: Chronic Plan: Maintain glucose 140-180 mg/dL (4) Hypertension ICD Codes: I10 - Hypertension Status: Chronic Plan: Medications adjusted Off nifedipine and amlodipine which cause lower extremity edema. Also off metoprolol On Coreg, isosorbide, clonidine; add Cardizem. Plan Patient was seen and examined. Agree with above assessment and plan. Froylan Mejia MD June 13, 2017 17:20
[2017-06-13] MEDS: ATORVASTATIN 20 MG TAB PO SCH (21:16)
[2017-06-13] MEDS: traZODone HCL 50 MG TAB PO SCH (21:16)
[2017-06-13] MEDS: cloNIDine HCL 0.1 MG TAB PO PRN (21:16)
[2017-06-14] VITALS (8 sets, daily range): BP systolic 149–188; BP diastolic 69–92; PULSE 63–84; RESP 20–21; TEMP 97.3–97.9; O2SAT 90–95
[2017-06-14] MEDS: RESP: ALBUTEROL 2.5 MG/IPRATROPIUM 0.5 MG NEB (SCH) NEB ×7 (00:16→23:52)
[2017-06-14] MEDS: RESP: BUDESONIDE 0.5 MG/2 ML NEB NEB SCH ×2 (07:46→21:04)
[2017-06-14] MEDS: SODIUM CHLORIDE 0.9% FLUSH 10 ML FLUSH IV FLUSH SCH ×2 (09:00→20:11)
[2017-06-14] MEDS: LACTIC ACID (AMMONIUM LACTATE) 12% LOTION 225 GM BTL TOPICAL SCH ×2 (09:00→20:12)
[2017-06-14] MEDS: ISOSORBIDE MONONITRATE 30 MG CR TAB (IMDUR) PO SCH (09:16)
[2017-06-14] MEDS: CARVEDILOL 12.5 MG TAB PO SCH ×2 (09:16→20:10)
[2017-06-14] MEDS: FUROSEMIDE 40 MG TAB PO SCH (09:16)
[2017-06-14] MEDS: ALLOPURINOL 100 MG TAB PO SCH (09:16)
[2017-06-14] MEDS: ASPIRIN 81 MG CHEW TAB CHEW SCH (09:16)
[2017-06-14] MEDS: DILTIAZEM-CD 120 MG CAP ER PO SCH (09:17)
[2017-06-14] MEDS: PANTOPRAZOLE SOD 20 MG DELAYED RELEASE TAB PO SCH (09:17)
[2017-06-14] MEDS: METHYLDOPA 500 MG TAB PO SCH ×3 (09:17→17:36)
[2017-06-14] MEDS: INSULIN ASPART SUPPLEMENTAL SCALE SQ SCH ×4 (09:18→20:11)
[2017-06-14] MEDS: INSULIN DETEMIR 100 UNITS/ML VIAL SQ SCH ×2 (09:18→20:11)
[2017-06-14] MEDS: predniSONE 20 MG TAB PO SCH ×2 (09:21→20:10)
--- NOTE | 2017-06-14 10:16 | HHI.PR ---
Subjective Remarks pt says he ambulated in hallway 3x yesterday and breathing is making progress lower ext swelling better with wraps but moved into thighs Objective Vitals heart reg lung scattered wheeze/rhonci abd s/nt ext lower ext acute/chronic edema Vital Signs Date Time Temp Pulse Resp B/P (MAP) Pulse Ox O2 Delivery O2 Flow Rate FiO2 06/14/17 08:00 97.6 76 20 163/77 (105) 90 06/14/17 07:46 93 Nasal Cannula 3.00 06/14/17 07:00 Nasal Cannula 3.00 06/14/17 04:00 97.8 77 21 149/69 (95) 92 06/14/17 00:00 97.5 84 20 169/79 (109) 93 06/13/17 23:50 79 06/13/17 20:30 74 06/13/17 20:00 98.1 68 20 178/84 (115) 94 06/13/17 20:00 Nasal Cannula 3.00 06/13/17 19:58 95 Nasal Cannula 3.00 06/13/17 16:00 97.3 71 20 167/77 (107) 95 06/13/17 16:00 82 06/13/17 12:00 69 06/13/17 12:00 97.7 68 20 171/81 (111) 90 Result Diagram: 06/13/17 0737 Imaging Last Impressions Chest X-Ray 06/06/17 1256 Signed Impressions: Service Date/Time: Tuesday, June 06, 2017 13:22 - CONCLUSION: Cardiomegaly. Cezar Prieto MD Hip and Pelvis X-Ray 06/06/17 0000 Signed Impressions: Service Date/Time: Tuesday, June 06, 2017 11:46 - CONCLUSION: No acute disease. Cezar Prieto MD A/P Problem List: (1) Acute worsening of stage 3 chronic kidney disease ICD Codes: N18.3 - Chronic kidney disease, stage 3 (moderate) Status: Acute Plan: 1. a/ckd 3. diabetic nephropathy. heavy proteinuria. appears to have nephrotic range protein. volume overload. over 50pound weight gain x 3months. 2. copd with exacerbation. 3. htn 2d Echo 06/09: Normal left ventricular size. Mild concentric left ventricular hypertrophy. The left ventricular systolic function is normal with an estimated ejection fraction in the range of 60-65%. No definite wall motion abnormalities. Possible mild aortic valve sclerosis is present. Trace aortic insufficiency. renal following. diuretics resumed po we contacted cp who says [facility] can do lymphedema treatement pt currently has lower ext shanice wraps converted metoprolol to coreg for better bp control. titrate cont titrate of levemir and ssi. plan to convert back to home regimen on d/c. prednisone taper duonebs. budesonide nebs. PT daily. dvt prophylaxis would plan for d/c home Thursday or Thursday will need hhc/pt for lymphedema wraps, PT with [facility] vs ability. also needs nebulizer and probably oxygen will get walk test in AM. will f/u nephrology (2) COPD (chronic obstructive pulmonary disease) ICD Codes: J44.9 - Chronic obstructive pulmonary disease, unspecified Status: Acute (3) Hypertension ICD Codes: I10 - Hypertension Status: Chronic Plan: Continue patient's home metoprolol 50 mg twice daily DC home amlodipine started nifedipine 30 mg twice daily (4) DM (diabetes mellitus) ICD Codes: E11.9 - DM (diabetes mellitus) Status: Chronic Plan: Patient takes Tresiba 60 mg daily and Pioglitazone 30 mg PO daily-the hospital does not carry these medications We will start patient on checks before meals at bedtime with high dose sliding scale insulin coverage Diabetic diet titrate levemir in hospital. (5) Tobacco abuse ICD Codes: Z72.0 - Tobacco abuse Status: Chronic Plan: Counselled encouraged patient to quit smoking patient declined nicotine patch (6) Fall ICD Codes: W19.XXXA - Unspecified fall, initial encounter Status: Acute Plan: Mechanical fall with right hip pain X ray Right Hip and Pelvis No fracture dislocation or lytic lesion seen. No acute disease PT consulted Blair Contreras MD June 14, 2017 10:16
[2017-06-14 11:12] LABS: BICARBONATE 35.5 MEQ/L (21.0-32.0); CALCIUM 8.7 MG/DL (8.5-10.1); CREATININE 2.37 MG/DL (0.60-1.30)
--- NOTE | 2017-06-14 17:05 | HHI.NPPN ---
Subjective Renal Failure: Chronic, Acute, Stage III Review of Systems General Constitutional: Weight Change Respiratory Lungs: SOB Cardiovascular Cardiac: Edema Objective Data Data Vital Signs Date Time Temp Pulse Resp B/P (MAP) Pulse Ox O2 Delivery O2 Flow Rate FiO2 06/14/17 12:00 63 06/14/17 11:25 2.00 06/14/17 08:00 74 06/14/17 08:00 97.6 76 20 163/77 (105) 90 06/14/17 07:46 93 Nasal Cannula 3.00 06/14/17 07:00 Nasal Cannula 3.00 06/14/17 04:00 97.8 77 21 149/69 (95) 92 06/14/17 00:00 97.5 84 20 169/79 (109) 93 06/13/17 23:50 79 06/13/17 20:30 74 06/13/17 20:00 98.1 68 20 178/84 (115) 94 06/13/17 20:00 Nasal Cannula 3.00 06/13/17 19:58 95 Nasal Cannula 3.00 -: 06/14/17 0927 Physical Exam General Appearance: Well Developed, Well Nourished, Comfortable, Obese Throat Throat Exam: Oral Mucosa [place] & Moist Pulmonary Resp Exam: Breath Sounds Equal, Crackles, Rhonchi, Decreased Bases Cardiology CV Exam: Regular, Normal Sinus Rhythm Gastrointestinal/Abdomen GI Exam: Soft, Non-Tender Musculoskeletal MS Exam: Normal Gait, Normal Tone, Good Strength Integumentary Skin Exam: Warm, Dry, Intact Extremeties Extremities Exam: Pedal Pulses Palpable, Moderate Edema, Dependent Edema Neurologic Neuro Exam: Alert, Awake, Oriented, Speech Clear, Moving All Extremities Psychiatric Psych Exam: Appropriate Responses Assessment/Plan Discussed Condition With: Patient, Sibling Assessment Summary: ROGELIO/Acute Renal Failure, Diabetes Mellitus, CKD Stage III Problem List: (1) Acute worsening of stage 3 chronic kidney disease ICD Codes: N18.3 - Chronic kidney disease, stage 3 (moderate) Status: Acute Plan: Renal function is better today. Baseline creatinine 1.9, GFR 35. He has heavy proteinuria (4g). May have diabetic nephropathy. Serum electrophoresis is negative. Continue antihypertensives, avoid IVF Lasix on 40 mg PO daily. Creatinine 2.3 today He is non oliguric. PO fluids encouraged. Creatinine 2.37 *Echo shows EF 60-65%. Likely has component of lymphedema and aggressive diuresis will worsen renal function. Dr. Martinez to follow (2) Shortness of breath ICD Codes: R06.02 - Shortness of breath Plan: Echo reviewed Hold diuresis, see above Shortness of breath improved. Needs weight loss Also has LAMONTE would benefit from CPAP (3) DM (diabetes mellitus) ICD Codes: E11.9 - DM (diabetes mellitus) Status: Chronic Plan: Maintain glucose 140-180 mg/dL (4) Hypertension ICD Codes: I10 - Hypertension Status: Chronic Plan: Medications adjusted Off nifedipine and amlodipine which cause lower extremity edema. Also off metoprolol On Coreg, isosorbide, clonidine; add Cardizem. Plan Patient was seen and examined. Agree with above assessment and plan. Froylan Mejia MD June 14, 2017 17:04
[2017-06-14] MEDS: ATORVASTATIN 20 MG TAB PO SCH (20:10)
[2017-06-14] MEDS: traZODone HCL 50 MG TAB PO SCH (20:10)
[2017-06-14] MEDS: cloNIDine HCL 0.1 MG TAB PO PRN (20:10)
[2017-06-15] VITALS (12 sets, daily range): BP systolic 152–177; BP diastolic 80–96; PULSE 58–71; RESP 18–20; TEMP 97.5–98; O2SAT 93–96
[2017-06-15] MEDS: RESP: ALBUTEROL 2.5 MG/IPRATROPIUM 0.5 MG NEB (SCH) NEB (03:31)
[2017-06-15] MEDS: RESP: BUDESONIDE 0.5 MG/2 ML NEB NEB SCH ×2 (08:33→20:00)
[2017-06-15] MEDS: RESP: ALBUTEROL 2.5 MG/3 ML NEB (PRN) INH ×2 (08:33→20:00)
[2017-06-15] MEDS: PANTOPRAZOLE SOD 20 MG DELAYED RELEASE TAB PO SCH (09:24)
[2017-06-15] MEDS: ASPIRIN 81 MG CHEW TAB CHEW SCH (09:24)
[2017-06-15] MEDS: DILTIAZEM-CD 120 MG CAP ER PO SCH (09:24)
[2017-06-15] MEDS: predniSONE 20 MG TAB PO SCH ×2 (09:24→20:28)
[2017-06-15] MEDS: ALLOPURINOL 100 MG TAB PO SCH (09:24)
[2017-06-15] MEDS: CARVEDILOL 12.5 MG TAB PO SCH ×2 (09:24→20:27)
[2017-06-15] MEDS: ISOSORBIDE MONONITRATE 30 MG CR TAB (IMDUR) PO SCH (09:24)
[2017-06-15] MEDS: SODIUM CHLORIDE 0.9% FLUSH 10 ML FLUSH IV FLUSH SCH ×2 (09:25→20:29)
[2017-06-15] MEDS: FUROSEMIDE 40 MG TAB PO SCH (09:25)
[2017-06-15] MEDS: METHYLDOPA 500 MG TAB PO SCH ×3 (09:25→17:24)
[2017-06-15] MEDS: LACTIC ACID (AMMONIUM LACTATE) 12% LOTION 225 GM BTL TOPICAL SCH ×2 (09:25→20:31)
[2017-06-15] MEDS: INSULIN DETEMIR 100 UNITS/ML VIAL SQ SCH ×2 (09:26→20:31)
[2017-06-15] MEDS: INSULIN ASPART SUPPLEMENTAL SCALE SQ SCH ×4 (09:26→20:29)
--- NOTE | 2017-06-15 11:56 | HHI.NPPN ---
Subjective Renal Failure: Chronic, Acute, Stage III Interval History overall he is stable. Renal function has improved. Review of Systems General Constitutional: Weight Change Respiratory Lungs: SOB Cardiovascular Cardiac: Edema Objective Data Data Vital Signs Date Time Temp Pulse Resp B/P (MAP) Pulse Ox O2 Delivery O2 Flow Rate FiO2 06/15/17 08:37 94 Nasal Cannula 3.00 06/15/17 08:00 Nasal Cannula 3.00 Humidified 06/15/17 08:00 97.6 66 20 169/80 (109) 94 06/15/17 04:00 97.5 70 19 173/85 (114) 93 06/15/17 00:00 98.0 71 20 174/88 (116) 93 06/14/17 21:06 95 Nasal Cannula 3.00 06/14/17 20:00 97.9 71 20 188/92 (124) 93 06/14/17 16:00 97.3 65 20 181/84 (116) 91 06/14/17 16:00 69 06/14/17 12:00 97.4 67 20 161/77 (105) 95 06/14/17 12:00 63 -: 06/14/17 0927 Physical Exam General Appearance: Well Developed, Well Nourished, Comfortable, Obese Throat Throat Exam: Oral Mucosa [place] & Moist Pulmonary Resp Exam: Breath Sounds Equal, Crackles, Rhonchi, Decreased Bases Cardiology CV Exam: Regular, Normal Sinus Rhythm Gastrointestinal/Abdomen GI Exam: Soft, Non-Tender Musculoskeletal MS Exam: Normal Gait, Normal Tone, Good Strength Integumentary Skin Exam: Warm, Dry, Intact Extremeties Extremities Exam: Pedal Pulses Palpable, Moderate Edema, Dependent Edema Neurologic Neuro Exam: Alert, Awake, Oriented, Speech Clear, Moving All Extremities Psychiatric Psych Exam: Appropriate Responses Assessment/Plan Discussed Condition With: Patient, Sibling Assessment Summary: ROGELIO/Acute Renal Failure, Diabetes Mellitus, CKD Stage III Problem List: (1) Acute worsening of stage 3 chronic kidney disease ICD Codes: N18.3 - Chronic kidney disease, stage 3 (moderate) Status: Acute Plan: Renal function has improved. Baseline creatinine 1.9, GFR 35. He has heavy proteinuria (4g). May have diabetic nephropathy. Serum electrophoresis is negative. Continue antihypertensives, avoid IVF Lasix on 40 mg PO daily. He is non oliguric. PO fluids encouraged. *Echo shows EF 60-65%. Likely has component of lymphedema and aggressive diuresis will worsen renal function. (2) Shortness of breath ICD Codes: R06.02 - Shortness of breath Plan: Echo reviewed Hold diuresis, see above Shortness of breath improved. Needs weight loss Also has LAMONTE would benefit from CPAP (3) DM (diabetes mellitus) ICD Codes: E11.9 - DM (diabetes mellitus) Status: Chronic Plan: Maintain glucose 140-180 mg/dL (4) Hypertension ICD Codes: I10 - Hypertension Status: Chronic Plan: Medications adjusted Off nifedipine and amlodipine which cause lower extremity edema. Also off metoprolol On Coreg, isosorbide, clonidine; add Cardizem. Plan He can be discharged from renal standpoint. Nicko Martinez MD June 15, 2017 11:56
--- NOTE | 2017-06-15 13:47 | HHI.PR ---
Subjective Remarks Less SOB from admission. Pt still with substantial LE edema. Objective Vitals Vital Signs Date Time Temp Pulse Resp B/P (MAP) Pulse Ox O2 Delivery O2 Flow Rate FiO2 06/15/17 12:00 97.5 64 20 177/84 (115) 95 06/15/17 12:00 Nasal Cannula 3.00 Humidified 06/15/17 08:37 94 Nasal Cannula 3.00 06/15/17 08:00 Nasal Cannula 3.00 Humidified 06/15/17 08:00 97.6 66 20 169/80 (109) 94 06/15/17 04:00 97.5 70 19 173/85 (114) 93 06/15/17 00:00 98.0 71 20 174/88 (116) 93 06/14/17 21:06 95 Nasal Cannula 3.00 06/14/17 20:00 97.9 71 20 188/92 (124) 93 06/14/17 16:00 97.3 65 20 181/84 (116) 91 06/14/17 16:00 69 Result Diagram: 06/14/17 09 Imaging Last Impressions Renal Ultrasound 06/09/17 0000 Signed Impressions: Service Date/Time: Friday, June 09, 2017 11:42 - CONCLUSION: 1. Suboptimal visualization of the left kidney due to the patient's body habitus. 2. No evidence of hydronephrosis. 3. Small cyst in right kidney. 4. The bladder appears distended. Mike Spring MD Chest X-Ray 06/08/17 0800 Signed Impressions: Service Date/Time: Thursday, June 08, 2017 08:19 - CONCLUSION: 1. Mild right base atelectasis or consolidation. 2. Prominence of the central pulmonary vessels likely related to pulmonary venous hypertension versus mild edema. 3. Cardiomegaly. Cezar Prieto MD Hip and Pelvis X-Ray 06/06/17 0000 Signed Impressions: Service Date/Time: Tuesday, June 06, 2017 11:46 - CONCLUSION: No acute disease. Cezar Prieto MD Chest CT 06/06/17 0000 Signed Impressions: Service Date/Time: Tuesday, June 06, 2017 15:25 - CONCLUSION: 1. Evidence of granulomatous exposure. 2. Suspected bibasal areas of mild atelectasis or consolidation. 3. 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 Cezar Prieto MD Objective Remarks GENERAL: This is a well-nourished, well-developed patient, in no apparent distress. CARDIOVASCULAR: Regular rate and rhythm without murmurs, gallops, or rubs. RESPIRATORY: Clear to auscultation. Breath sounds equal bilaterally. No wheezes , rales, or rhonchi. GASTROINTESTINAL: Abdomen soft, non-tender, nondistended. Normal active bowel sounds MUSCULOSKELETAL: 1 to 2+ LE edema NEURO: Alert & Oriented x4 to person, place, time, situation. Moves all ext x4 A/P Problem List: (1) Acute worsening of stage 3 chronic kidney disease ICD Codes: N18.3 - Chronic kidney disease, stage 3 (moderate) Status: Acute Plan: 1. a/ckd 3. diabetic nephropathy. heavy proteinuria. appears to have nephrotic range protein. volume overload. over 50pound weight gain x 3months. 2. copd with exacerbation. 3. htn 2d Echo 06/09: Normal left ventricular size. Mild concentric left ventricular hypertrophy. The left ventricular systolic function is normal with an estimated ejection fraction in the range of 60-65%. No definite wall motion abnormalities. Possible mild aortic valve sclerosis is present. Trace aortic insufficiency. - comgmt with Nephrology - diuretics converted from IV back to PO - [facility] to perform lymphedema treatment upon discharge - LE current with shanice wraps - improved BP control with coreg - Pt's blood sugars are stable with levemir and SSI, but will convert back to home regimen upon discharge. - continue prednisone taper, bedesonide nebs - PT - DVT prophylaxis - anticipate d/c to home in 1-2 days. - Pt will need home oxygen & home nebulizer (2) COPD (chronic obstructive pulmonary disease) ICD Codes: J44.9 - Chronic obstructive pulmonary disease, unspecified Status: Acute (3) Hypertension ICD Codes: I10 - Hypertension Status: Chronic Plan: - coreg, aldomet, cardizem (4) DM (diabetes mellitus) ICD Codes: E11.9 - DM (diabetes mellitus) Status: Chronic Plan: Patient takes Tresiba 60 mg daily and Pioglitazone 30 mg PO daily-the hospital does not carry these medications - levemir - SSI - Pt will resume home regimen upon discharge. (5) Tobacco abuse ICD Codes: Z72.0 - Tobacco abuse Status: Chronic Plan: Counselled encouraged patient to quit smoking patient declined nicotine patch (6) Fall ICD Codes: W19.XXXA - Unspecified fall, initial encounter Status: Acute Plan: Mechanical fall with right hip pain X ray Right Hip and Pelvis No fracture dislocation or lytic lesion seen. 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
[2017-06-15] MEDS: cloNIDine HCL 0.1 MG TAB PO PRN (14:57)
[2017-06-15] MEDS: traZODone HCL 50 MG TAB PO SCH (20:27)
[2017-06-15] MEDS: ATORVASTATIN 20 MG TAB PO SCH (20:28)
[2017-06-16] VITALS (10 sets, daily range): BP systolic 122–180; BP diastolic 73–86; PULSE 62–82; RESP 18–20; TEMP 97.3–97.5; O2SAT 91–98
[2017-06-16] MEDS: RESP: ALBUTEROL 2.5 MG/3 ML NEB (PRN) INH (07:49)
[2017-06-16] MEDS: RESP: BUDESONIDE 0.5 MG/2 ML NEB NEB SCH ×2 (07:49→19:55)
[2017-06-16] MEDS: INSULIN ASPART SUPPLEMENTAL SCALE SQ SCH ×4 (08:00→21:13)
[2017-06-16] MEDS: INSULIN DETEMIR 100 UNITS/ML VIAL SQ SCH ×2 (09:00→21:12)
[2017-06-16] MEDS: LACTIC ACID (AMMONIUM LACTATE) 12% LOTION 225 GM BTL TOPICAL SCH ×2 (09:00→21:00)
[2017-06-16] MEDS: CARVEDILOL 12.5 MG TAB PO SCH ×2 (10:31→21:12)
[2017-06-16] MEDS: ALLOPURINOL 100 MG TAB PO SCH (10:31)
[2017-06-16] MEDS: DILTIAZEM-CD 120 MG CAP ER PO SCH (10:31)
[2017-06-16] MEDS: predniSONE 20 MG TAB PO SCH ×2 (10:31→21:11)
[2017-06-16] MEDS: ASPIRIN 81 MG CHEW TAB CHEW SCH (10:32)
[2017-06-16] MEDS: PANTOPRAZOLE SOD 20 MG DELAYED RELEASE TAB PO SCH (10:32)
[2017-06-16] MEDS: ISOSORBIDE MONONITRATE 30 MG CR TAB (IMDUR) PO SCH (10:32)
[2017-06-16] MEDS: METHYLDOPA 500 MG TAB PO SCH ×3 (10:32→18:25)
[2017-06-16] MEDS: FUROSEMIDE 40 MG TAB PO SCH (10:32)
--- NOTE | 2017-06-16 10:59 | HHI.NPPN ---
Subjective Renal Failure: Chronic, Acute, Stage III Interval History Resting comfortably. Pending discharge. No new developments. (Maddi Reaves) Review of Systems General Constitutional: Weight Change (Maddi Reaves) Respiratory Lungs: SOB (Maddi Reaves) Cardiovascular Cardiac: Edema (Maddi Reaves) Objective Data Data Vital Signs Date Time Temp Pulse Resp B/P (MAP) Pulse Ox O2 Delivery O2 Flow Rate FiO2 06/16/17 08:00 97.4 65 20 142/79 (100) 93 06/16/17 07:51 98 Nasal Cannula 3.00 06/16/17 03:56 62 06/16/17 03:55 97.5 66 18 180/86 (117) 91 122/78 (93) 06/16/17 00:26 64 06/16/17 00:00 Nasal Cannula 3.00 Humidified 06/15/17 23:30 97.7 64 18 173/81 (111) 93 152/90 (110) 06/15/17 20:30 Nasal Cannula 3.00 Humidified 06/15/17 20:18 60 06/15/17 20:00 96 Nasal Cannula 3.00 06/15/17 19:50 97.8 67 18 177/84 (115) 94 158/96 (116) 06/15/17 16:00 97.5 62 20 173/90 (117) 95 06/15/17 16:00 Nasal Cannula 3.00 Humidified 06/15/17 15:51 58 06/15/17 12:00 64 06/15/17 12:00 97.5 64 20 177/84 (115) 95 06/15/17 12:00 Nasal Cannula 3.00 Humidified (Maddi Reaves) -: 06/14/17 0927 Physical Exam General Appearance: Well Developed, Well Nourished, Comfortable, Obese (Maddi Reaves) Throat Throat Exam: Oral Mucosa [place] & Moist (Maddi Reaves) Pulmonary Resp Exam: Breath Sounds Equal, Crackles, Rhonchi, Decreased Bases Resp Remarks wheezing (Maddi Reaves) Cardiology CV Exam: Regular, Normal Sinus Rhythm (Maddi Reaves) Gastrointestinal/Abdomen GI Exam: Soft, Non-Tender GI Remarks obese (Maddi Reaves) Musculoskeletal MS Exam: Normal Gait, Normal Tone, Good Strength (Maddi Reaves) Integumentary Skin Exam: Warm, Dry, Intact (Maddi Reaves) Extremeties Extremities Exam: Pedal Pulses Palpable, Moderate Edema, Dependent Edema (Maddi Reaves) Neurologic Neuro Exam: Alert, Awake, Oriented, Speech Clear, Moving All Extremities (Maddi Reaves) Psychiatric Psych Exam: Appropriate Responses (Maddi Reaves) Assessment/Plan Discussed Condition With: Patient, Sibling Assessment Summary: ROGELIO/Acute Renal Failure, Diabetes Mellitus, CKD Stage III Problem List: (1) Acute worsening of stage 3 chronic kidney disease ICD Codes: N18.3 - Chronic kidney disease, stage 3 (moderate) Status: Acute Plan: Renal function has improved. Baseline creatinine 1.9, GFR 35. He has heavy proteinuria (4g). May have diabetic nephropathy. Serum electrophoresis and urine immunofixation was negative. Continue antihypertensives Lasix on 40 mg PO daily. He is non oliguric. PO fluids encouraged. *Echo shows EF 60-65%. Likely has component of lymphedema and aggressive diuresis will worsen renal function. Plans for follow up with lymphedema clinic in process. (2) Shortness of breath ICD Codes: R06.02 - Shortness of breath Plan: Echo reviewed continue cautious diuresis, see above Shortness of breath improved. Needs weight loss Also has LAMONTE would benefit from CPAP (3) DM (diabetes mellitus) ICD Codes: E11.9 - DM (diabetes mellitus) Status: Chronic Plan: Maintain glucose 140-180 mg/dL (4) Hypertension ICD Codes: I10 - Hypertension Status: Chronic Plan: Medications adjusted Off nifedipine and amlodipine which cause lower extremity edema. Also off metoprolol On Coreg, isosorbide, clonidine, and Cardizem. Plan He can be discharged from renal standpoint. (Maddi Reaves) Plan patient was seen and examined. Agree with above assessment and plan. He can be discharged from renal standpoint. (Nicko Martinez MD) Maddi Reaves June 16, 2017 10:59 Nicko Martinez MD June 16, 2017 21:28
--- NOTE | 2017-06-16 15:41 | HHI.DS ---
Discharge Summary Admission Date Jun 06, 2017 at 15:40 Discharge Date: June 17, 2017 Admitting Diagnosis Hypoxia/COPD/CHF (1) Acute worsening of stage 3 chronic kidney disease Diagnosis: Principal ICD Codes: N18.3 - Chronic kidney disease, stage 3 (moderate) Status: Acute (2) COPD (chronic obstructive pulmonary disease) Diagnosis: Principal ICD Codes: J44.9 - Chronic obstructive pulmonary disease, unspecified Status: Acute (3) Hypertension Diagnosis: Principal ICD Codes: I10 - Hypertension Status: Chronic (4) DM (diabetes mellitus) Diagnosis: Secondary ICD Codes: E11.9 - DM (diabetes mellitus) Status: Chronic (5) Tobacco abuse Diagnosis: Secondary ICD Codes: Z72.0 - Tobacco abuse Status: Chronic (6) Fall Diagnosis: Secondary ICD Codes: W19.XXXA - Unspecified fall, initial encounter Status: Acute [facility] Brief History This is a 62-year-old male patient with a past medical history which includes CAD, hypertension, diabetes mellitus type 2, chronic kidney disease stage III, tobacco dependence, gout, squamous cell carcinoma of the skin, GERD, alcohol dependency in remission, pancreatitis, fatty liver, hyperlipidemia and morbid obesity. Patient was seen yesterday in the ER diagnosed with COPD exacerbation and DC with prescriptions for Levaquin, Combivent and prednisone. Patient returns to the ER today brought in by EMS status post fall at home. Patient denies LOC or head trauma. Patient was trying to change his pants when his legs became entangled and he fell backwards landing on the right hip. 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 Patient reports feeling short of breath and wheezing. Patient's pulse oxygen saturation on RA was 90%. Patient and his sisters who help care for him report worsening edema over the past 2-3 months. Patient reports he is probably gained weight but is unsure the amount. Patient also reports that his shortness of breath is getting worse. He is only able to ambulate short distances then becomes short of breath and has to rest. Patient is unable to lay flat to sleep and has to sleep propped up on 2-3 pillows. Patient denies feeling lightheaded, headache, fevers, chills, cough, congestion , chest pain or N/V/D/C CBC/BMP: 06/14/17 0927 Significant Findings Laboratory Tests Test 06/14/17 09:27 Blood Urea Nitrogen 70 MG/DL (7-18) Creatinine 2.37 MG/DL (0.60-1.30) Random Glucose 152 MG/DL (74-106) Carbon Dioxide Level 35.5 MEQ/L (21.0-32.0) Estimat Glomerular Filtration Rate 28 ML/MIN (>89) Hospital Course (1) Acute worsening of stage 3 chronic kidney disease ICD Codes: N18.3 - Chronic kidney disease, stage 3 (moderate) Status: Acute Plan: 1. a/ckd 3. diabetic nephropathy. heavy proteinuria. appears to have nephrotic range protein. volume overload. over 50pound weight gain x 3months. 2d Echo 06/09: Normal left ventricular size. Mild concentric left ventricular hypertrophy. The left ventricular systolic function is normal with an estimated ejection fraction in the range of 60-65%. No definite wall motion abnormalities. Possible mild aortic valve sclerosis is present. Trace aortic insufficiency. - comgmt with Nephrology - diuretics converted from IV back to PO - [facility] to perform lymphedema treatment upon discharge - LE current with shanice wraps - Pt may require HD in the dialysis - Pt to f/u with Nephrology one week after discharge - See discharge orders (2) COPD (chronic obstructive pulmonary disease) ICD Codes: J44.9 - Chronic obstructive pulmonary disease, unspecified Status: Acute - Pt counseled on the importance of smoking cessation. This was discussed with Mr. Guardado upon admission as well as upon discharge. - Pt started on IV steroid and scheduled/prn duoneb treatments. - Pt made a slow improvement - Pt started on budesonide - Pt to continue duonebs, budesonide, and a slow prednisone taper upon discharge. - Pt to f/u with his PCP, Dr. Mchugh, one week after discharge. - case mgmt to arrange home oxygen & home nebulizer prior to discharge. (3) Hypertension ICD Codes: I10 - Hypertension Status: Chronic - likely renovascular etiology - Pt to keep home blood pressure log using extra large manual blood pressure cuff - Pt will likely need further adjustment of his BP medications outpt Plan: - coreg, aldomet, cardizem (4) DM (diabetes mellitus) ICD Codes: E11.9 - DM (diabetes mellitus) Status: Chronic Plan: Patient takes Tresiba 60 mg daily and Pioglitazone 30 mg PO daily-the hospital does not carry these medications - levemir - SSI - Pt will resume home regimen upon discharge. (5) Tobacco abuse ICD Codes: Z72.0 - Tobacco abuse Status: Chronic Plan: Counselled encouraged patient to quit smoking patient declined nicotine patch (6) Fall ICD Codes: W19.XXXA - Unspecified fall, initial encounter Status: Acute Plan: Mechanical fall with right hip pain X ray Right Hip and Pelvis No fracture dislocation or lytic lesion seen. No acute disease PT consulted Pt Condition on Discharge: Stable Discharge Disposition: Disch w/ Home Health Serv Discharge Instructions DIET: Follow Instructions for: Heart Healthy Diet, Diabetic Diet Activities you can perform: Weight Bearing as Esther Activities to Avoid: Strenuous Activity Follow up Referrals: Nephrology - 1 Week PCP Follow-up - [address] Mchugh New Medications: Albuterol Neb (Albuterol Neb) 2.5 Mg/3 Ml Neb 2.5 MG NEB Q6HR WHILE AWAKE NEB PRN for SHORTNESS OF BREATH, #60 NEBULE 0 Refills USE TOGETHER WITH ATROVENT Ipratropium Neb (Ipratropium Neb) 0.5 Mg/2.5 Ml Amp 0.5 MG NEB Q6HR WHILE AWAKE NEB PRN for SHORTNESS OF BREATH, #120 NEBULE 0 Refills USE TOGETHER WITH ALBUTEROL Nebulizer (Nebulizer) 1 Mis Mis EA .XX DIRECTED for Breathing Treatment, #1 0 Refills Oxygen (O2) (Oxygen (O2)) Device LITER ANH.CANULA CONTINUOUS for Prevent Hypoxemia, #2 Oxygen Concentrator Portable Gaseous 2 L/min via Nasal Canula Continuous For 99 months Budesonide Neb (Pulmicort Respules) 0.5 Mg/2 Ml Neb 0.5 MG NEB Q12HR NEB for copd, #60 NEBULE 0 Refills Carvedilol (Coreg) 12.5 Mg Tab 25 MG PO Q12HR for HTN, #60 TAB 0 Refills Diltiazem CD 24 HR (Diltiazem CD 24 HR) 120 Mg Caper 120 MG PO DAILY for HTN, #30 CAP 0 Refills Lorazepam (Ativan) 0.5 Mg Tab 0.5 MG PO Q8H PRN for ANXIETY, #20 TAB 0 Refills Prednisone (Prednisone) 20 Mg Tab 20 MG PO BID for COPD, #30 TAB DISPENSE: QS 20MG po bid X 5D, THEN 20MG DAILY X 5D, THEN 10MG DAILY X 5D, THEN STOP Changed Medications: Ipratropium-Albuterol Inh (Combivent Respimat Inh) 20-100 Care Home/Act Aero 1 PUFF INH QID for Asthma Management, #1 INHALER 0 Refills (Medication details modified) may use in place of duonebs if pt does not have immediately access to nebulizer Continued Medications: Allopurinol (Allopurinol) 100 Mg Tab 100 MG PO DAILY for Gout, #30 TAB 0 Refills Aspirin (Aspirin) 81 Mg Chew 81 MG CHEW DAILY, TAB 0 Refills Atorvastatin (Atorvastatin) 20 Mg Tab 20 MG PO HS for Cholesterol Management, #30 TAB 0 Refills Furosemide (Furosemide) 40 Mg Tab 40 MG PO DAILY, #30 TAB 0 Refills Insulin Degludec Inj (Tresiba Flextouch Pen Inj) 600 unit/3 ML Pen 60 UNITS SQ for Blood Sugar Management, #9 ML 0 Refills Isosorbide Mononitrate ER (Isosorbide Mononitrate ER) 30 Mg Chris 30 MG PO DAILY for Prevent Chest Pain, #30 TAB 0 Refills Methyldopa (Methyldopa) 500 Mg Tab 500 MG PO TID for Blood Pressure Management, TAB 0 Refills Omeprazole (Omeprazole) 20 Mg Tab 20 MG PO DAILY, #30 TAB 0 Refills Pioglitazone (Pioglitazone) 30 Mg Tab 30 MG PO DAILY for Blood Sugar Management, #30 TAB 0 Refills Trazodone (Trazodone) 50 Mg Tab 50 MG PO HS for Control Depression, #30 TAB 0 Refills Discontinued Medications: Amlodipine (Amlodipine) 5 Mg Tab 5 MG PO DAILY for Blood Pressure Management, #30 TAB 0 Refills Bumetanide (Bumetanide) 1 Mg Tab 1 MG PO DAILY, #30 TAB 0 Refills Gabapentin (Gabapentin) 300 Mg Cap 300 MG PO HS, #30 CAP 0 Refills Levofloxacin (Levaquin) 500 Mg Tablet 500 MG PO DAILY for Infection, #5 TAB 0 Refills Metoprolol Tartrate (Metoprolol Tartrate) 50 Mg Tab 50 MG PO BID, #60 TAB 0 Refills Prednisone (Prednisone) 50 Mg Tab 50 MG PO DAILY, #5 TAB 0 Refills Jas Santoyo DO June 16, 2017 15:41
[2017-06-16] MEDS ORDERED: IPRA0.02 NEB (15:53)
[2017-06-16] MEDS ORDERED: ALBU0.08 NEB (15:53)
[2017-06-16] MEDS ORDERED: CARV12.5 PO (15:53)
[2017-06-16] MEDS ORDERED: DILT120C50 PO (15:53)
[2017-06-16] MEDS ORDERED: IPRAAER INH (15:53)
[2017-06-16] MEDS ORDERED: PRED20 PO (15:53)
[2017-06-16] MEDS ORDERED: LORA-392 PO (15:53)
--- NOTE | 2017-06-16 16:04 | HHI.DCPOC ---
Discharge Care Plan Diagnosis: (1) DM (diabetes mellitus) (2) Hypertension (3) COPD (chronic obstructive pulmonary disease) (4) Acute worsening of stage 3 chronic kidney disease Goals to Promote Your Health * To prevent worsening of your condition and complications * To maintain your health at the optimal level Directions to Meet Your Goals Take your medications as prescribed Follow your dietary instruction Follow activity as directed Keep your appointments as scheduled Take your immunizations and boosters as scheduled If your symptoms worsen call your PCP, if no PCP go to Urgent Care Center or Emergency Room Smoking is Dangerous to Your Health. Avoid second hand smoke Call the 24-hour hour crisis hotline for domestic abuse at f/u with PCP, Dr. Rojas, in 1 week f/u with Nephrology in 1 week. Jas Santoyo DO June 16, 2017 16:04
[2017-06-16] MEDS ORDERED: NEBULIZER1 MI1 (16:11)
[2017-06-16] MEDS ORDERED: OXYGENDME NAS.CANULA (16:24)
[2017-06-16] MEDS: SODIUM CHLORIDE 0.9% FLUSH 10 ML FLUSH IV FLUSH SCH ×2 (18:27→21:15)
[2017-06-16] MEDS: ATORVASTATIN 20 MG TAB PO SCH (21:11)
[2017-06-16] MEDS: traZODone HCL 50 MG TAB PO SCH (21:11)
[2017-06-17] VITALS: BP_SYST 134; BP_SYST 145; BP_DIAS 61; BP_DIAS 73; PULSE 60; PULSE 69; PULSE 80; RESP 18; RESP 20; TEMP 97.8; O2SAT 92; O2SAT 95
[2017-06-17 03:20] VITALS: BP 109/44; PULSE 70; RESP 20; TEMP 98; O2SAT 93
[2017-06-17 03:53] VITALS: PULSE 57
[2017-06-17 08:00] VITALS: BP 148/70; PULSE 68; PULSE 76; RESP 17; TEMP 98; O2SAT 92
[2017-06-17] MEDS: INSULIN ASPART SUPPLEMENTAL SCALE SQ SCH ×2 (08:00→12:00)
[2017-06-17] MEDS: RESP: BUDESONIDE 0.5 MG/2 ML NEB NEB SCH (08:09)
[2017-06-17 08:10] VITALS: O2SAT 97
[2017-06-17] MEDS: INSULIN DETEMIR 100 UNITS/ML VIAL SQ SCH (09:00)
[2017-06-17] MEDS ORDERED: BUDE.5I NEB (09:06)
[2017-06-17] MEDS: predniSONE 20 MG TAB PO SCH (09:09)
[2017-06-17] MEDS: DILTIAZEM-CD 120 MG CAP ER PO SCH (09:09)
[2017-06-17] MEDS: FUROSEMIDE 40 MG TAB PO SCH (09:09)
[2017-06-17] MEDS: METHYLDOPA 500 MG TAB PO SCH ×2 (09:09→13:00)
[2017-06-17] MEDS: ISOSORBIDE MONONITRATE 30 MG CR TAB (IMDUR) PO SCH (09:09)
[2017-06-17] MEDS: ALLOPURINOL 100 MG TAB PO SCH (09:09)
[2017-06-17] MEDS: PANTOPRAZOLE SOD 20 MG DELAYED RELEASE TAB PO SCH (09:09)
--- NOTE | 2017-06-17 09:09 | HHI.FF ---
Face to Face Verification Diagnosis: (1) Acute worsening of stage 3 chronic kidney disease (2) DM (diabetes mellitus) (3) Hyperlipidemia (4) Hypertension (5) COPD (chronic obstructive pulmonary disease) Occupational Therapy Instructions: lymphedema Home Health Nursing Order: Medical education Signs/symptoms of disease process I have seen patient Satinder Guardado on 06/17/17. My clinical findings support the need for the requested home health care services because: Deconditioned w/ increased weakness Limited ability to care for self I certify that my clinical findings support that this patient is homebound because: Unsafe to leave home unassisted Abby Young June 17, 2017 09:09 Jas Santoyo DO June 17, 2017 09:11
[2017-06-17] MEDS: CARVEDILOL 12.5 MG TAB PO SCH (09:10)
[2017-06-17] MEDS: ASPIRIN 81 MG CHEW TAB CHEW SCH (09:10)
[2017-06-17] MEDS: SODIUM CHLORIDE 0.9% FLUSH 10 ML FLUSH IV FLUSH SCH (09:13)
[2017-06-17] MEDS ORDERED: WALKER WHEELS/F1 MIS (10:06)
[2017-06-17 12:00] VITALS: BP 134/66; PULSE 59; RESP 17; TEMP 97.8; O2SAT 95
== END 2017-06-17 13:53 | disposition home health service (06) | DRG 683 ==
LOC: NEPD 11:19 → NEDA 14:46 → OBSVTOIN 15:40 → N04B 16:26
PROVIDERS: ADMIT Hospitalist; ATTEND Hospitalist
DX: N17.9 Acute kidney failure, unspecified (principal); J44.1 Chronic obstructive pulmonary disease with (acute) exacerbation; J96.11 Chronic respiratory failure with hypoxia; E11.21 Type 2 diabetes mellitus with diabetic nephropathy; I13.0 Hypertensive heart and chronic kidney disease with heart failure and stage 1 through stage 4 chronic kidney disease, or unspecified chronic kidney disease; I50.9 Heart failure, unspecified; Z68.43 Body mass index [BMI] 50.0-59.9, adult; N18.3 Chronic kidney disease, stage 3 (moderate); S70.01XA Contusion of right hip, initial encounter; E11.22 Type 2 diabetes mellitus with diabetic chronic kidney disease; K76.0 Fatty (change of) liver, not elsewhere classified; H91.92 Unspecified hearing loss, left ear; K21.9 Gastro-esophageal reflux disease without esophagitis; E66.01 Morbid (severe) obesity due to excess calories; I44.0 Atrioventricular block, first degree; I25.10 Atherosclerotic heart disease of native coronary artery without angina pectoris; G47.33 Obstructive sleep apnea (adult) (pediatric); E78.5 Hyperlipidemia, unspecified; I89.0 Lymphedema, not elsewhere classified; I35.2 Nonrheumatic aortic (valve) stenosis with insufficiency; M10.9 Gout, unspecified; F10.21 Alcohol dependence, in remission; F17.210 Nicotine dependence, cigarettes, uncomplicated; W01.0XXA Fall on same level from slipping, tripping and stumbling without subsequent striking against object, initial encounter; Z79.4 Long term (current) use of insulin; Z85.828 Personal history of other malignant neoplasm of skin
CPT/HCPCS: 71045; 71046; 71250; 73501; 76775; 80048; 80053; 81001; 82043; 82570; 82948; 83880; 84100; 84156; 84157; 84165; 85025; 85610; 85730; 86317; 86335; 86803; 87340; 93005; 93306; 94618; 94640; 94664; 96372; 96374; J0696; J1815; J1940; J2930; J7512; J7613; J7626; P9047

== ENCOUNTER 2017-07-13 11:47 | Inpatient (IN) | payer OTHER ==
[~2017-07-13] VITALS: Ht 177.8 cm; Wt 168.1 kg
[~2017-07-13 11:47] MED LIST changes: +ALBU0.08 NEB; -AMLO5TAB2 PO; -ASPI-516 CHEW; +ASPI-516 PO; +BUDE.5I NEB; -BUME1TAB PO; +CARV12.5 PO; +DILT120C50 PO; -GABA300C5 PO; +IPRA0.02 NEB; -LEVA500T33 PO; +LORA-392 PO; -METO50TA PO; +NEBULIZER1 MI1; -OFLO0.3D9 LEFT EAR; +OXYGENDME NAS.CANULA; +PRED20 PO; -PRED50 PO; +WALKER WHEELS/F1 MIS
[2017-07-13 12:34] VITALS: BP 155/75; PULSE 63; RESP 19; TEMP 97.4; O2SAT 97
--- NOTE | 2017-07-13 14:55 | PD ---
HPI Chief Complaint: Edema Time Seen by Provider: 14:37 Travel History International Travel<30 days: No Contact w/Intl Traveler<30days: No Traveled to known affect area: No History of Present Illness HPI 62-year-old male with PMH of DM, HTN, HLD, CKD, COPD, O2 dependent on 2 L at home presents to the ED for evaluation of one week history of redness and edema bilateral lower extremities. Patient saw his primary care and was placed on Keflex. States that he had no improvement of his symptoms and was placed on clindamycin. After a few days of clindamycin he developed a pruritic rash over the entire skin surface. He denies accompanying breathing difficulties or wheezing. He discontinued clindamycin and has been taking Benadryl, last dose 50 mg prior to arrival. He also underwent an ultrasound of the left leg which was negative. Patient denies fever, endorses chills. He denies chest pain, palpitations, shortness of breath, cough, abdominal pain, nausea, vomiting. Endorses compliance with daily Lasix. States that he quit smoking approximately 1 month ago. PFSH Past Medical History Hx Anticoagulant Therapy: Yes Arthritis: No Asthma: No Autoimmune Disease: No Blood Disorders: No Depression: No Heart Rhythm Problems: No Cancer: Yes (SQUAMOUS CELL SKIN REMOVAL BILATERAL ARM) Cardiovascular Problems: Yes (HTN) High Cholesterol: Yes Chemotherapy: No Chest Pain: No Congestive Heart Failure: No COPD: Yes Cerebrovascular Accident: No Diabetes: Yes Patient Takes Glucophage: No Diminished Hearing: Yes (CHINIK LEFT) Endocrine: No Gastrointestinal Disorders: No GERD: Yes Glaucoma: No Gout: Yes Genitourinary: No Headaches: No Hepatitis: No Hiatal Hernia: No Hypertension: Yes Immune Disorder: No Implanted Vascular Access Dvce: No Kidney Stones: No Musculoskeletal: Yes (BILATERAL LEG EDEMA) Neurologic: No Psychiatric: No Reproductive: No Respiratory: Yes (COPD) Integumentary: Yes (SKIN CA) Immunizations Current: No Myocardial Infarction: No Radiation Therapy: No Renal Failure: Yes (STAGE 4) Seizures: No Sickle Cell Disease: No Sleep Apnea: No Thyroid Disease: No Ulcer: No Past Surgical History Abdominal Surgery: Yes (PYLORIC STENOSIS @3MO OLD) AICD: No Cardiac Surgery: No Ear Surgery: No Endocrine Surgery: No Eye Surgery: No Genitourinary Surgery: No Gynecologic Surgery: No Insulin Pump: No Joint Replacement: No Neurologic Surgery: No Oral Surgery: No Pacemaker: No Thoracic Surgery: No Other Surgery: Yes (SKIN CA REMOVALS) Social History Alcohol Use: No Tobacco Use: Yes (1 PPD) Substance Use: No Allergies-Medications (Allergen,Severity, Reaction): Coded Allergies: ANDREA Inhibitors (Verified Allergy, Severe, Anaphylaxis, 07/13/17) benazepril (Unverified Allergy, Severe, Anaphylaxis, 07/13/17) captopril (Unverified Allergy, Severe, Anaphylaxis, 07/13/17) enalaprilat (Unverified Allergy, Severe, Anaphylaxis, 07/13/17) fosinopril (Unverified Allergy, Severe, Anaphylaxis, 07/13/17) lisinopril (Unverified Allergy, Severe, Anaphylaxis, 07/13/17) quinapril (Unverified Allergy, Severe, Anaphylaxis, 07/13/17) clindamycin (Verified Allergy, Intermediate, Rash, 07/15/17) Reported Meds & Prescriptions Reported Meds & Active Scripts Active Oxygen (O2) Device Liter ANH.CANULA CONTINUOUS Oxygen Concentrator Portable Gaseous 2 L/min via Nasal Canula Continuous For 99 months Ipratropium Neb (Ipratropium [place]) 0.5 Mg/2.5 Ml Amp 0.5 Mg NEB Q6HR WHILE AWAKE NEB PRN USE TOGETHER WITH ALBUTEROL Albuterol Neb (Albuterol Sulfate) 2.5 Mg/3 Ml Neb 2.5 Mg NEB Q6HR WHILE AWAKE NEB PRN USE TOGETHER WITH ATROVENT Ativan (Lorazepam) 0.5 Mg Tab 0.5 Mg PO Q8H PRN Diltiazem CD 24 HR 120 Mg Caper 120 Mg PO DAILY Reported Coreg (Carvedilol) 12.5 Mg Tab 12.5 Mg PO BID Fluticasone-Salmeterol Inh Unknown Strength Inh 1 Puff INH BID Lipitor (Atorvastatin Calcium) 40 Mg Tab 40 Mg PO HS Trazodone (Trazodone HCl) 50 Mg Tab 50 Mg PO HS Furosemide 40 Mg Tab 40 Mg PO DAILY Aspirin 81 Mg Chew 81 Mg PO DAILY Omeprazole 20 Mg Tab 20 Mg PO BID Isosorbide Mononitrate ER (Isosorbide Mononitrate) 30 Mg Chris 30 Mg PO DAILY Allopurinol 100 Mg Tab 100 Mg PO DAILY Pioglitazone (Pioglitazone HCl) 30 Mg Tab 30 Mg PO DAILY Methyldopa 500 Mg Tab 500 Mg PO TID Tresiba Flextouch Pen Inj (Insulin Degludec Inj) 600 unit/3 ML Pen 60 Units SQ DAILY Review of Systems Except as stated in HPI: all other systems reviewed are Neg Physical Exam Narrative GENERAL: Well-nourished, well-developed obese white male on 2 L O2 by nasal cannula no acute distress. SKIN: Focused skin assessment warm/dry. Lacy, blanching, erythematous, maculopapular rash over the surface of the anterior and posterior trunk. HEAD: Normocephalic. EYES: No scleral icterus. No injection or drainage. NECK: Supple, trachea midline. No JVD or lymphadenopathy. CARDIOVASCULAR: Regular rate and rhythm without murmurs, gallops, or rubs. Heart sounds distant due to body habitus. RESPIRATORY: Breath sounds clear and equal bilaterally. No accessory muscle use. GASTROINTESTINAL: Abdomen soft, non-tender, nondistended. MUSCULOSKELETAL: No cyanosis, or edema. BILATERAL LOWER EXTREMITY EXAM: Dopplerable distal pulses bilaterally. 2+ edema to the knees bilaterally. Nonblanching erythema to the knees bilaterally , left greater than right. No warmth, no discharge. Mildly tender. Homans sign negative bilaterally. No popliteal tenderness. Patient retains flexion and extension. Neurovascularly intact distally. BACK: Nontender without obvious deformity. No CVA tenderness. Data Data Last Documented VS Orders Orders Complete Blood Count With Diff (07/13/17 14:48) Comprehensive Metabolic Panel (07/13/17 14:48) Prothrombin Time / Inr (Pt) (07/13/17 14:48) Act Partial Throm Time (Ptt) (07/13/17 14:48) Iv Access Insert/Monitor (07/13/17 14:48) Ecg Monitoring (07/13/17 14:48) Oximetry (07/13/17 14:48) Sodium Chloride 0.9% Flush (Ns Flush) (07/13/17 15:00) Diphenhydramine Inj (Benadryl Inj) (07/13/17 15:00) Prednisone (Deltasone) (07/13/17 15:00) Famotidine (Pepcid) (07/13/17 15:00) Sodium Chlor 0.9% 250 Ml Inj (Ns 250 Ml (07/13/17 15:00) B-Type Natriuretic Peptide (07/13/17 14:56) Vancomycin Inj (Vancomycin Inj) (07/13/17 17:15) Place In Observation (07/13/17 ) Code Status (07/13/17 17:07) Vital Signs (Adult) Q4H (07/13/17 17:07) Activity Oob With Assistance (07/13/17 17:07) Floor Associate / Telemetry .CONTINUOUS (07/13/17 17:) Sodium Chloride 0.9% Flush (Ns Flush) (07/13/17 17:15) Sodium Chloride 0.9% Flush (Ns Flush) (07/13/17 21:00) Acetaminophen (Tylenol) (07/13/17 17:15) Basic Metabolic Panel (Bmp) (07/14/17 06:00) Complete Blood Count With Diff (07/14/17 06:00) Urinalysis - C+S If Indicated (07/13/17 17:07) Chest, Single Ap (07/13/17 17:07) Electrocardiogram (07/13/17 17:07) Pt Request For Service (07/13/17 17:07) Scd Bilateral/Knee High KEISHA.BID (07/13/17 17:07) Naloxone Inj (Narcan Inj) (07/13/17 17:15) Magnesium Hydroxide Liq (Milk Of Magnesi (07/13/17 17:15) Diet 1999 [place] Cons Carb (07/13/17 Dinner) Allopurinol (Zyloprim) (07/14/17 09:00) Aspirin Chew (Aspirin Chew) (07/14/17 09:00) Atorvastatin (Lipitor) (07/13/17 21:00) Carvedilol (Coreg) (07/13/17 21:00) Diltiazem Cd (Cardizem Cd) (07/14/17 09:00) Isosorbide Mononitrate (Imdur) (07/14/17 09:00) Lorazepam (Ativan) (07/13/17 17:15) Methyldopa (Aldomet) (07/13/17 18:00) Pioglitazone (Actos) (07/14/17 09:00) Trazodone (Desyrel) (07/13/17 21:00) Insulin Aspart Supplemtl Scale (Novolog (07/13/17 21:00) Albuterol-Ipratropium Neb (Duoneb Neb) (07/13/17 17:15) Budeson-Formot 160-4.5 Mcg Inh (Symbicor (07/13/17 21:00) Furosemide Inj (Lasix Inj) (07/13/17 18:00) Insulin Detemir Inj (Levemir Inj) (07/13/17 21:00) Diphenhydramine (Benadryl) (07/13/17 17:30) Admit Order (Ed Use Only) (07/13/17 17:28) Ondansetron Odt (Zofran Odt) (07/13/17 19:15) Labs Laboratory Tests Test 07/13/17 15:16 White Blood Count 6.5 TH/MM3 Red Blood Count 3.93 MIL/MM3 Hemoglobin 11.8 GM/DL Hematocrit 36.2 % Mean Corpuscular Volume 92.2 FL Mean Corpuscular Hemoglobin 30.1 PG Mean Corpuscular Hemoglobin Concent 32.6 % Red Cell Distribution Width 16.9 % Platelet Count 150 TH/MM3 Mean Platelet Volume 7.8 FL Neutrophils (%) (Auto) 85.0 % Lymphocytes (%) (Auto) 8.2 % Monocytes (%) (Auto) 4.5 % Eosinophils (%) (Auto) 2.1 % Basophils (%) (Auto) 0.2 % Neutrophils # (Auto) 5.5 TH/MM3 Lymphocytes # (Auto) 0.5 TH/MM3 Monocytes # (Auto) 0.3 TH/MM3 Eosinophils # (Auto) 0.1 TH/MM3 Basophils # (Auto) 0.0 TH/MM3 CBC Comment DIFF FINAL Differential Comment Prothrombin Time 9.9 SEC Prothromb Time International Ratio 1.0 RATIO Activated Partial Thromboplast Time 25.2 SEC Blood Urea Nitrogen 29 MG/DL Creatinine 2.67 MG/DL Random Glucose 157 MG/DL Total Protein 6.2 GM/DL Albumin 2.2 GM/DL Calcium Level 8.7 MG/DL Alkaline Phosphatase 93 U/L Aspartate Amino Transf (AST/SGOT) 14 U/L Alanine Aminotransferase (ALT/SGPT) 30 U/L Total Bilirubin 0.4 MG/DL Sodium Level 139 MEQ/L Potassium Level 4.3 MEQ/L Chloride Level 101 MEQ/L Carbon Dioxide Level 31.1 MEQ/L Anion Gap 7 MEQ/L Estimat Glomerular Filtration Rate 24 ML/MIN B-Type Natriuretic Peptide 200 PG/ML MDM Medical Decision Making Medical Screen Exam Complete: Yes Emergency Medical Condition: Yes Differential Diagnosis Venous stasis dermatitis versus vasculitis versus cellulitis versus fluid overload versus other Narrative Course 2-year-old male with PMH of DM, HTN, HLD, CKD, O2 dependent on 2 L at home presents to the ED for evaluation of 1 week history of redness and edema bilateral lower extremities. Patient saw primary care, took Keflex and clindamycin. After few days he developed a rash to the clindamycin. He had an outpatient US of left lower extremity, negative for DVT. Vitals reviewed. On exam there is edema and erythema of the bilateral lower extremities. Mildly tender. No warmth or discharge. Bounding pulses in the lower extremities. Homans sign negative bilaterally. IV was established. Patient was administered IV dexamethasone, Benadryl and 215 mL normal saline. CBC: WBC 6.5. Hemoglobin 11.8 per INR: 1.0. CMP: BUN 29, creatinine 2.67. Chronic per record review. BNP 200. Patient initiated on vancomycin IV. Discussed the results of the workup and recommended observation overnight. Patient's agreeable to care plan. I spoke with Dr. Santoyo who agrees to accept the patient to the medicine service. Please see medicine notes for disposition. Scripts Doxycycline Hyclate (Doxycycline Hyclate) 100 Mg Cap 100 MG PO BID for Infection for 10 Days, #20 CAP 0 Refills Prov: Abby Young 07/19/17 Furosemide (Furosemide) 40 Mg Tab 40 MG PO BID@18 for fluid retention, #60 TAB 0 Refills Prov: Abby Young 07/19/17 Cephalexin (Cephalexin) 500 Mg Cap 500 MG PO Q6HR for antibiotic for 10 Days, CAP 0 Refills Prov: Abby Young 07/19/17 Breonna Nj Jul 13, 2017 14:55
[2017-07-13] MEDS ORDERED: SODIUM CHLORIDE 0.9% FLUSH 10 ML FLUSH IV FLUSH PRN ×2 (15:00→17:15)
[2017-07-13] MEDS ORDERED: SODIUM CHLOR 0.9% 250 ML INJ 250 ML IV ONE (15:00)
[2017-07-13] MEDS ORDERED: predniSONE 20 MG TAB PO ONE (15:00)
[2017-07-13] MEDS ORDERED: FAMOTIDINE 20 MG TAB PO ONE (15:00)
[2017-07-13] MEDS ORDERED: diphenhydrAMINE HCL 50 MG/ML VIAL IVP ONE (15:00)
[2017-07-13] MEDS ORDERED: FLUT1AER3 INH (15:31)
[2017-07-13] MEDS ORDERED: LIPI40TA PO (15:31)
[2017-07-13] MEDS ORDERED: CARV12.5 PO (15:34)
[2017-07-13 15:53] LABS: AUTOMATED NEUTROPHIL # 5.5 TH/MM3 (1.8-7.7); BASOPHIL % 0.2 % (0.0-2.0); EOSINOPHIL # 0.1 TH/MM3 (0-0.4); EOSINOPHIL % 2.1 % (0.0-4.0); HEMATOCRIT 36.2 % (39.0-51.0); HEMOGLOBIN 11.8 GM/DL (13.0-17.0); LYMPH % 8.2 % (9.0-44.0); LYMPHOCYTE # 0.5 TH/MM3 (1.0-4.8); MEAN CELL VOLUME 92.2 FL (80.0-100.0); MEAN CORPUSCULAR HEMOGLOBIN 30.1 PG (27.0-34.0); MEAN CORPUSCULAR HGB CONC 32.6 % (32.0-36.0); MEAN PLATELET VOLUME 7.8 FL (7.0-11.0); MONO % 4.5 % (0.0-8.0); MONOCYTE # 0.3 TH/MM3 (0-0.9); PLATELET COUNT 150 TH/MM3 (150-450); RED BLOOD COUNT 3.93 MIL/MM3 (4.50-5.90); RED CELL DISTRIBUTION WIDTH 16.9 % (11.6-17.2); WHITE BLOOD COUNT 6.5 TH/MM3 (4.0-11.0)
[2017-07-13 16:10] LABS: ALBUMIN 2.2 GM/DL (3.4-5.0); AST (GOT) 14 U/L (15-37); BICARBONATE 31.1 MEQ/L (21.0-32.0); BLOOD UREA NITROGEN 29 MG/DL (7-18); CALCIUM 8.7 MG/DL (8.5-10.1); CHLORIDE 101 MEQ/L (98-107); CREATININE 2.67 MG/DL (0.60-1.30); GLOMERULAR FILTRATION RATE 24 ML/MIN (>89); GLUCOSE,RANDOM 157 MG/DL (74-106); PROTHROMBIN TIME - PATIENT 9.9 SEC (9.8-11.6); SODIUM (NA) 139 MEQ/L (136-145)
[2017-07-13 16:11] LABS: ALT (GPT) 30 U/L (12-78)
[2017-07-13 16:13] LABS: ALKALINE PHOSPHATASE 93 U/L (45-117); TOTAL BILIRUBIN ADULT 0.4 MG/DL (0.2-1.0); TOTAL PROTEIN 6.2 GM/DL (6.4-8.2)
[2017-07-13 16:34] VITALS: BP 166/79; PULSE 86; RESP 18; O2SAT 97
[2017-07-13] MEDS ORDERED: VANCOMYCIN INJ 1,000 MG in SODIUM CHLOR 0.9% 250 ML INJ 250 ML IV ONE (17:15)
[2017-07-13] MEDS ORDERED: MAGNESIUM HYDROXIDE SUSP 30 ML CUP PO PRN (17:15)
[2017-07-13] MEDS ORDERED: NALOXONE HCL 0.4 MG/ML AMP IV PUSH PRN (17:15)
[2017-07-13] MEDS ORDERED: RESP: ALBUTEROL 2.5 MG/IPRATROPIUM 0.5 MG NEB (PRN) NEB (17:15)
[2017-07-13] MEDS ORDERED: ACETAMINOPHEN 325 MG TAB PO PRN (17:15)
--- NOTE | 2017-07-13 17:45 | RADRPT ---
EXAM DATE: 07/13/2017 5:31 PM EDT AGE/SEX: 62 years / Male INDICATIONS: Cough and leg swelling. CLINICAL DATA: This is the patient's initial encounter. Patient reports that signs and symptoms have been present for 1 day and indicates a pain score of 0/10. MEDICAL/SURGICAL HISTORY: Hypertension. . COMPARISON: [facility] – [place], [place]ST SINGLE AP, 06/06/2017. . FINDINGS: A single AP view of the chest demonstrates the lungs to be symmetrically aerated without evidence of mass, infiltrate or effusion. The cardiomediastinal contours are unremarkable. Osseous structures a re intact. CONCLUSION: No acute disease Electronically signed by: Cezar St MD 07/13/2017 5:44 PM EDT
[2017-07-13] MEDS: FUROSEMIDE 40 MG/4 ML VIAL IV PUSH SCH (19:11)
[2017-07-13] MEDS ORDERED: GLUCAGON 1 MG/ML VIAL OTHER PRN (19:15)
[2017-07-13] MEDS ORDERED: ONDANSETRON ODT 4 MG TAB PO PRN (19:15)
[2017-07-13] MEDS ORDERED: DEXTROSE 50% IN WATER 50 ML VIAL(D50) IV PUSH PRN (19:15)
[2017-07-13 19:41] VITALS: BP 139/61; PULSE 55; RESP 13; O2SAT 96
[2017-07-13] MEDS: METHYLDOPA 500 MG TAB PO SCH (20:14)
[2017-07-13 21:00] VITALS: BP 148/62; PULSE 62; RESP 16; TEMP 97.5; O2SAT 98
[2017-07-13] MEDS ORDERED: NON-FORMULARY DRUG (Omeprazole 20 MG) PO SCH ×2 (21:00)
[2017-07-13] MEDS: SODIUM CHLORIDE 0.9% FLUSH 10 ML FLUSH IV FLUSH SCH (21:59)
[2017-07-13] MEDS: CARVEDILOL 12.5 MG TAB PO SCH (21:59)
[2017-07-13] MEDS: PANTOPRAZOLE SOD 20 MG DELAYED RELEASE TAB PO SCH (21:59)
[2017-07-13] MEDS: ATORVASTATIN 40 MG TAB PO SCH (22:00)
[2017-07-13] MEDS: INSULIN DETEMIR 100 UNITS/ML VIAL SQ SCH (22:00)
[2017-07-13] MEDS: traZODone HCL 50 MG TAB PO SCH (22:00)
[2017-07-13] MEDS: INSULIN ASPART SUPPLEMENTAL SCALE SQ SCH (22:01)
[2017-07-13] MEDS: BUDESONIDE-FORMOTEROL 160/4.5 MCG INHALER INH SCH (22:03)
[2017-07-14] VITALS (10 sets, daily range): BP systolic 104–161; BP diastolic 54–86; PULSE 54–85; RESP 14–20; TEMP 97.2–98.3; O2SAT 95–100
[2017-07-14] MEDS: LORazepam 0.5 MG TAB PO PRN (03:17)
[2017-07-14 05:29] LABS: AUTOMATED NEUTROPHIL # 6.9 TH/MM3 (1.8-7.7); BASOPHIL % 0.2 % (0.0-2.0); EOSINOPHIL % 0.2 % (0.0-4.0); HEMOGLOBIN 12.7 GM/DL (13.0-17.0); LYMPH % 5.6 % (9.0-44.0); LYMPHOCYTE # 0.4 TH/MM3 (1.0-4.8); MEAN CELL VOLUME 91.3 FL (80.0-100.0); MEAN CORPUSCULAR HEMOGLOBIN 29.6 PG (27.0-34.0); MEAN CORPUSCULAR HGB CONC 32.5 % (32.0-36.0); MEAN PLATELET VOLUME 8.1 FL (7.0-11.0); MONO % 1.7 % (0.0-8.0); MONOCYTE # 0.1 TH/MM3 (0-0.9); NEUT % 92.3 % (16.0-70.0); PLATELET COUNT 183 TH/MM3 (150-450); RED BLOOD COUNT 4.27 MIL/MM3 (4.50-5.90); RED CELL DISTRIBUTION WIDTH 17.3 % (11.6-17.2); WHITE BLOOD COUNT 7.5 TH/MM3 (4.0-11.0)
[2017-07-14 05:53] LABS: BICARBONATE 28.4 MEQ/L (21.0-32.0); CALCIUM 8.9 MG/DL (8.5-10.1); CREATININE 2.87 MG/DL (0.60-1.30)
[2017-07-14] MEDS: INSULIN ASPART SUPPLEMENTAL SCALE SQ SCH ×4 (08:00→21:02)
[2017-07-14] MEDS: INSULIN DETEMIR 100 UNITS/ML VIAL SQ SCH ×2 (09:00→21:02)
[2017-07-14] MEDS: BUDESONIDE-FORMOTEROL 160/4.5 MCG INHALER INH SCH ×2 (09:00→21:01)
[2017-07-14] MEDS: PIOGLITAZONE HCL 30 MG TAB PO SCH (09:08)
[2017-07-14] MEDS: ALLOPURINOL 100 MG TAB PO SCH (09:08)
[2017-07-14] MEDS: CARVEDILOL 12.5 MG TAB PO SCH ×2 (09:09→21:03)
[2017-07-14] MEDS: ISOSORBIDE MONONITRATE 30 MG CR TAB (IMDUR) PO SCH (09:09)
[2017-07-14] MEDS: ASPIRIN 81 MG CHEW TAB PO SCH (09:09)
[2017-07-14] MEDS: METHYLDOPA 500 MG TAB PO SCH ×3 (09:09→17:02)
[2017-07-14] MEDS: PANTOPRAZOLE SOD 20 MG DELAYED RELEASE TAB PO SCH ×2 (09:09→21:03)
[2017-07-14] MEDS: DILTIAZEM-CD 120 MG CAP ER PO SCH (09:09)
[2017-07-14] MEDS: SODIUM CHLORIDE 0.9% FLUSH 10 ML FLUSH IV FLUSH SCH ×2 (09:10→21:01)
[2017-07-14] MEDS: FUROSEMIDE 40 MG/4 ML VIAL IV PUSH SCH ×2 (09:10→17:02)
--- NOTE | 2017-07-14 10:08 | HHI.HP ---
HPI Service [facility] Hospitalists Primary Care Physician Saurav Rojas MD Admission Diagnosis Bilateral lower extremity cellulitis, edema Chief Complaint: worsening LE redness diffuse rash Travel History International Travel<30 Days: No Contact w/Intl Traveler <30 Da: No Traveled to Known Affected Are: No History of Present Illness This is a 62-year-old male patient with a past medical history which includes CAD, COPD oxygen dependent, hypertension, diabetes mellitus type 2, chronic kidney disease stage III, tobacco dependence, gout, squamous cell carcinoma of the skin, GERD, alcohol dependency in remission, pancreatitis, fatty liver, hyperlipidemia and morbid obesity. Pt was recently hospitalized at [facility] - 06/17/17. Pt noted to have worsening of CKD, stage 3. Testing c/w nephrotic range protein. Pt's hospitalization was also complicated by COPD exacerbation. Pt presented to the ER 07/12/17 with c/o bilateral lower extremity redness and worsening edema. Patient saw his primary care physician and was placed on cephalexin. Patient states that the redness at his anterior thighs worsened. Patient states that last Thursday he was started on clindamycin. Patient states he developed a diffuse pruritic rash both at his lower extremities and diffusely at his trunk. Patient complained of severe itching, especially at his lower extremities. Patient reports that he had a left lower extremity ultrasound outpatient which was negative for DVT. Patient given vancomycin in the ER. Patient admitted to [facility] for further evaluation and treatment. Review of Systems Constitutional: DENIES: Diaphoretic episodes, Fatigue, Fever, Weight gain, Weight loss, Chills, Dizziness, Change in appetite, Night Sweats Endocrine: DENIES: Heat/cold intolerance, Polydipsia, Polyuria, Polyphagia Eyes: DENIES: Blurred vision, Diplopia, Eye inflammation, Eye pain, Vision loss , Photosensitivity, Double Vision Ears, nose, mouth, throat: DENIES: Tinnitus, Hearing loss, Vertigo, Nasal discharge, Oral lesions, Throat pain, Hoarseness, Ear Pain, Running Nose, Epistaxis, Sinus Pain, Toothache, Odynophagia Respiratory: DENIES: Apneas, Cough, Snoring, Wheezing, Hemoptysis, Sputum production, Shortness of breath Cardiovascular: DENIES: Chest pain, Palpitations, Syncope, Dyspnea on Exertion , PND, Lower Extremity Edema, Orthopnea, Claudication Gastrointestinal: DENIES: Abdominal pain, Black stools, Bloody stools, BRB per rectum, Constipation, Diarrhea, GERD, Nausea, Reflux, Vomiting, Difficulty Swallowing, Anorexia Genitourinary: COMPLAINS OF: Penile Discharge, DENIES: Urinary frequency, Urinary incontinence, Urgency, Hematuria, Dysuria, Nocturia Musculoskeletal: DENIES: Joint pain, Muscle aches, Stiffness, Joint Swelling, Back pain, Neck pain Integumentary: DENIES: Abnormal pigmentation, Nail changes, Pruritus, Rash Hematologic/lymphatic: DENIES: Bruising, Lymphadenopathy Immunologic/allergic: DENIES: Eczema, Urticaria Neurologic: DENIES: Abnormal gait, Headache, Localized weakness, Paresthesias, Seizures, Speech Problems, Tremor, Poor Balance Psychiatric: DENIES: Anxiety, Confusion, Mood changes, Depression, Hallucinations, Agitation, Suicidal Ideation, Homicidal Ideation, Delusions, History of Bipolar, History of Schizophrenia Past Family Social History Past Medical History CAD hypertension diabetes mellitus type 2 chronic kidney disease stage III, nephrotic range proteinuria tobacco dependence, recently quit gout squamous cell carcinoma of the skin GERD alcohol dependency in remission pancreatitis fatty liver hyperlipidemia morbid obesity Past Surgical History Skin biopsy, actinic keratosis excision from left forearm, excision of squamous cell carcinoma from left forearm, nuclear stress test 2013 negative, colonoscopy 2013 Reported Medications Reported Meds & Active Scripts Active Oxygen (O2) Device Liter ANH.CANULA CONTINUOUS Oxygen Concentrator Portable Gaseous 2 L/min via Nasal Canula Continuous For 99 months Ipratropium Neb (Ipratropium [place]) 0.5 Mg/2.5 Ml Amp 0.5 Mg NEB Q6HR WHILE AWAKE NEB PRN USE TOGETHER WITH ALBUTEROL Albuterol Neb (Albuterol Sulfate) 2.5 Mg/3 Ml Neb 2.5 Mg NEB Q6HR WHILE AWAKE NEB PRN USE TOGETHER WITH ATROVENT Ativan (Lorazepam) 0.5 Mg Tab 0.5 Mg PO Q8H PRN Diltiazem CD 24 HR 120 Mg Caper 120 Mg PO DAILY Reported Coreg (Carvedilol) 12.5 Mg Tab 12.5 Mg PO BID Fluticasone-Salmeterol Inh Unknown Strength Inh 1 Puff INH BID Lipitor (Atorvastatin Calcium) 40 Mg Tab 40 Mg PO HS Trazodone (Trazodone HCl) 50 Mg Tab 50 Mg PO HS Furosemide 40 Mg Tab 40 Mg PO DAILY Aspirin 81 Mg Chew 81 Mg PO DAILY Omeprazole 20 Mg Tab 20 Mg PO BID Isosorbide Mononitrate ER (Isosorbide Mononitrate) 30 Mg Chris 30 Mg PO DAILY Allopurinol 100 Mg Tab 100 Mg PO DAILY Pioglitazone (Pioglitazone HCl) 30 Mg Tab 30 Mg PO DAILY Methyldopa 500 Mg Tab 500 Mg PO TID Tresiba Flextouch Pen Inj (Insulin Degludec Inj) 600 unit/3 ML Pen 60 Units SQ DAILY Allergies: Coded Allergies: ANDREA Inhibitors (Verified Allergy, Severe, Anaphylaxis, 07/13/17) benazepril (Unverified Allergy, Severe, Anaphylaxis, 07/13/17) captopril (Unverified Allergy, Severe, Anaphylaxis, 07/13/17) enalaprilat (Unverified Allergy, Severe, Anaphylaxis, 07/13/17) fosinopril (Unverified Allergy, Severe, Anaphylaxis, 07/13/17) lisinopril (Unverified Allergy, Severe, Anaphylaxis, 07/13/17) quinapril (Unverified Allergy, Severe, Anaphylaxis, 07/13/17) Family History Noncontributory Social History -Quit drinking alcohol 1994 -Tobacco: One pack per day, stopped approximately 1 month ago -Denies illicit street drugs Physical Exam Vital Signs Vital Signs Date Time Temp Pulse Resp B/P (MAP) Pulse Ox O2 Delivery O2 Flow Rate FiO2 07/14/17 08:00 97.2 67 20 161/71 (101) 95 07/14/17 04:00 81 07/14/17 03:55 Nasal Cannula 2.00 07/14/17 03:55 97.8 85 14 153/71 (98) 95 07/14/17 00:00 Nasal Cannula 2.00 07/14/17 00:00 98.3 73 16 155/86 (109) 96 07/14/17 00:00 79 07/13/17 21:00 Nasal Cannula 2.00 07/13/17 21:00 97.5 62 16 148/62 (90) 98 07/13/17 21:00 07/13/17 19:41 55 13 139/61 (87) 96 Nasal Cannula 2.00 07/13/17 16:34 86 18 166/79 (108) 97 Room Air 07/13/17 12:34 97.4 63 19 155/75 (101) 97 Physical Exam GENERAL: This is a well-nourished, well-developed patient, in no apparent distress. SKIN: No rashes, ecchymoses or lesions. Cool and dry. HEAD: Atraumatic. Normocephalic. No temporal or scalp tenderness. EYES: Pupils equal round and reactive. Extraocular motions intact. No scleral icterus. No injection or drainage. ENT: Nose without bleeding, purulent drainage or septal hematoma. Throat without erythema, tonsillar hypertrophy or exudate. Uvula midline. Airway patent. NECK: Trachea midline. No JVD or lymphadenopathy. Supple, nontender, no meningeal signs. CARDIOVASCULAR: Regular rate and rhythm without murmurs, gallops, or rubs. RESPIRATORY: Clear to auscultation. Breath sounds equal bilaterally. No wheezes , rales, or rhonchi. GASTROINTESTINAL: Abdomen soft, non-tender, nondistended. No hepato-splenomegaly , or palpable masses. No guarding. MUSCULOSKELETAL: LEs edematous, erythema at anterior aspect of both LEs nearly up to the knees NEUROLOGICAL: Awake and alert. Cranial nerves II through XII intact. Motor and sensory grossly within normal limits. Five out of 5 muscle strength in all muscle groups. Normal speech. Laboratory Laboratory Tests Test 07/13/17 15:16 07/14/17 03:40 White Blood Count 6.5 7.5 Red Blood Count 3.93 4.27 Hemoglobin 11.8 12.7 Hematocrit 36.2 39.0 Mean Corpuscular Volume 92.2 91.3 Mean Corpuscular Hemoglobin 30.1 29.6 Mean Corpuscular Hemoglobin Concent 32.6 32.5 Red Cell Distribution Width 16.9 17.3 Platelet Count 150 183 Mean Platelet Volume 7.8 8.1 Neutrophils (%) (Auto) 85.0 92.3 Lymphocytes (%) (Auto) 8.2 5.6 Monocytes (%) (Auto) 4.5 1.7 Eosinophils (%) (Auto) 2.1 0.2 Basophils (%) (Auto) 0.2 0.2 Neutrophils # (Auto) 5.5 6.9 Lymphocytes # (Auto) 0.5 0.4 Monocytes # (Auto) 0.3 0.1 Eosinophils # (Auto) 0.1 0.0 Basophils # (Auto) 0.0 0.0 CBC Comment DIFF FINAL DIFF FINAL Differential Comment Prothrombin Time 9.9 Prothromb Time International Ratio 1.0 Activated Partial Thromboplast Time 25.2 Blood Urea Nitrogen 29 31 Creatinine 2.67 2.87 Random Glucose 157 293 Total Protein 6.2 Albumin 2.2 Calcium Level 8.7 8.9 Alkaline Phosphatase 93 Aspartate Amino Transf (AST/SGOT) 14 Alanine Aminotransferase (ALT/SGPT) 30 Total Bilirubin 0.4 Sodium Level 139 140 Potassium Level 4.3 4.3 Chloride Level 101 100 Carbon Dioxide Level 31.1 28.4 Anion Gap 7 12 Estimat Glomerular Filtration Rate 24 22 B-Type Natriuretic Peptide 200 Result Diagram: 07/14/17 03407/14/17 034 Imaging Last Impressions Chest X-Ray 07/13/17 1707 Signed Impressions: CONCLUSION: No acute disease Caprini VTE Risk Assessment Caprini VTE Risk Assessment: Mod/High Risk (score >= 2) Caprini Risk Assessment Model Point Value = 1 Point Value = 2 Point Value = 3 Point Value = 5 Age 41-60 Minor surgery BMI > 25 kg/m2 Swollen legs Varicose veins or History of unexplained or recurrent spontaneous Oral contraceptives or hormone replacement Sepsis (< 1 month) Serious lung disease, including pneumonia (< 1 month) Abnormal pulmonary function Acute myocardial infarction Congestive heart failure (< 1 month) History of inflammatory bowel disease Medical patient at bed rest Age 61-74 Arthroscopic surgery Major open surgery (> 45 min) Laparoscopic surgery (> 45 min) Malignancy Confined to bed (> 72 hours) Immobilizing plaster cast Central venous access Age >= 75 History of VTE Family history of VTE Factor V Leiden Prothrombin [id number] Lupus anticoagulant Anticardiolipin antibodies Elevated serum homocysteine Heparin-induced thrombocytopenia Other congenital or acquired thrombophilia Stroke (< 1 month) Elective arthroplasty Hip, pelvis, or leg fracture Acute spinal cord injury (< 1 month) Prophylaxis Regimen Total Risk Factor Score Risk Level Prophylaxis Regimen 0-1 Low Early ambulation 2 Moderate Order ONE of the following: *Sequential Compression Device (SCD) *Heparin 5000 units SQ BID 3-4 Higher Order ONE of the following medications: *Heparin 5000 units SQ TID *Enoxaparin/Lovenox 40 mg SQ daily (WT < 150 kg, CrCl > 30 mL/min) *Enoxaparin/Lovenox 30 mg SQ daily (WT < 150 kg, CrCl > 10-29 mL/min) *Enoxaparin/Lovenox 30 mg SQ BID (WT < 150 kg, CrCl > 30 mL/min) AND/OR *Sequential Compression Device (SCD) 5 or more Highest Order ONE of the following medications: *Heparin 5000 units SQ TID (Preferred with Epidurals) *Enoxaparin/Lovenox 40 mg SQ daily (WT < 150 kg, CrCl > 30 mL/min) *Enoxaparin/Lovenox 30 mg SQ daily (WT < 150 kg, CrCl > 10-29 mL/min) *Enoxaparin/Lovenox 30 mg SQ BID (WT < 150 kg, CrCl > 30 mL/min) AND *Sequential Compression Device (SCD) Assessment and Plan Problem List: (1) Cellulitis ICD Codes: L03.90 - Cellulitis, unspecified Plan: - pt presented to the ER 07/13/17 with c/o worsening redness and edema to his LEs - pt started on keflex outpt without improvement and then some worsening. - Pt then started on clindamycin with development of rash - pt received vancomycin, prednisone in the ER - No fever; no leukocytosis - observe clinical response. - change lasix to IV - repeat BMP, CBC in AM - DVT prophylaxis supportive care. (2) Hypertension ICD Codes: I10 - Hypertension Status: Chronic Plan: - continue outpt regimen (3) DM (diabetes mellitus) ICD Codes: E11.9 - DM (diabetes mellitus) Status: Chronic Plan: - levemir - SSI (4) COPD (chronic obstructive pulmonary disease) ICD Codes: J44.9 - Chronic obstructive pulmonary disease, unspecified Status: Acute (5) CKD (chronic kidney disease) stage 3, GFR 30-59 ml/min ICD Codes: N18.3 - Chronic kidney disease, stage 3 (moderate) Status: Chronic Plan: - pt showed nephrotic range proteinuria during prior hospitalization - observe Physician Certification 2 Midnight Certification Type: Admission for Inpatient Services Order for Inpatient Services The services are ordered in accordance with Medicare regulations or non- Medicare payer requirements, as applicable. In the case of services not specified as inpatient-only, they are appropriately provided as inpatient services in accordance with the 2-midnight benchmark. Estimated LOS (days): 3 3 days is the estimated time the patient will need to remain in the hospital, assuming treatment plan goals are met and no additional complications. Post-Hospital Plan: Not yet determined Problem Qualifiers (1) Cellulitis: (2) Hypertension: Qualified Codes: I10 - Essential (primary) hypertension (3) DM (diabetes mellitus): Qualified Codes: E11.8 - Type 2 diabetes mellitus with unspecified complications; Z79.4 - skilled nursing (current) use of insulin Jas Santoyo DO Jul 14, 2017 10:08
--- NOTE | 2017-07-14 17:04 | EKG ---
Date Performed: 07/13/2017 Time Performed: 19:14:11 PTAGE: 62 years EKG: SINUS BRADYCARDIA WITH FIRST DEGREE AV BLOCK LOW QRS VOLTAGE IN PRECORDIAL LEADS SEPTAL NICO CARDIAL INFARCTION ABNORMAL ECG Since the PREVIOUS TRACING , no significant change noted PREVIOUS TRACIN06/06/2017 13.04 DOCTOR: Opal Collins Interpretating Date/Time 07/14/2017 17:01:30
--- NOTE | 2017-07-14 17:06 | HHI.PR ---
Subjective Remarks LEs with less itching. but still red and swollen. Pt denies fever. Objective Vitals Vital Signs Date Time Temp Pulse Resp B/P (MAP) Pulse Ox O2 Delivery O2 Flow Rate FiO2 07/14/17 16:59 54 07/14/17 16:59 97 Nasal Cannula 2.00 07/14/17 16:35 65 07/14/17 16:35 96 Nasal Cannula 2.00 07/14/17 12:00 97.3 62 20 104/61 (75) 96 07/14/17 08:00 97.2 67 20 161/71 (101) 95 07/14/17 08:00 65 07/14/17 08:00 95 Nasal Cannula 2.00 07/14/17 04:00 81 07/14/17 03:55 Nasal Cannula 2.00 07/14/17 03:55 97.8 85 14 153/71 (98) 95 07/14/17 00:00 Nasal Cannula 2.00 07/14/17 00:00 98.3 73 16 155/86 (109) 96 07/14/17 00:00 79 07/13/17 21:00 Nasal Cannula 2.00 07/13/17 21:00 97.5 62 16 148/62 (90) 98 07/13/17 21:00 07/13/17 19:41 55 13 139/61 (87) 96 Nasal Cannula 2.00 Result Diagram: 07/14/17 0340 07/14/17 0340 Imaging Last Impressions Chest X-Ray 07/13/17 1707 Signed Impressions: CONCLUSION: No acute disease Objective Remarks GENERAL: This is a well-nourished, well-developed patient, in no apparent distress. CARDIOVASCULAR: Regular rate and rhythm without murmurs, gallops, or rubs. RESPIRATORY: Clear to auscultation. Breath sounds equal bilaterally. No wheezes , rales, or rhonchi. GASTROINTESTINAL: Abdomen soft, non-tender, nondistended. Normal active bowel sounds MUSCULOSKELETAL: LEs swollen, erythema at anterior aspect of both LEs Skin: macular papular rash at trunk is fading. NEURO: Alert & Oriented x4 to person, place, time, situation. Moves all ext x4 A/P Problem List: (1) Cellulitis ICD Codes: L03.90 - Cellulitis, unspecified Plan: - pt presented to the ER 07/13/17 with c/o worsening redness and edema to his LEs - pt started on keflex outpt without improvement and then some worsening. - Pt then started on clindamycin with development of rash - pt received vancomycin, prednisone in the ER - No fever; no leukocytosis - worsening renal fxn with change to IV lasix. Resume PO lasix - Change antibiotic coverage to Daptomycin - Request Infectious disease consult - repeat BMP, CBC in AM - DVT prophylaxis supportive care. (2) CKD (chronic kidney disease) stage 3, GFR 30-59 ml/min ICD Codes: N18.3 - Chronic kidney disease, stage 3 (moderate) Status: Chronic Plan: - pt showed nephrotic range proteinuria during prior hospitalization - worsening renal function - change lasix back to PO - Consult pt's Medical Device, Dr. Mejia. (3) COPD (chronic obstructive pulmonary disease) ICD Codes: J44.9 - Chronic obstructive pulmonary disease, unspecified Status: Chronic Plan: - symbicort - duonebs prn (4) DM (diabetes mellitus) ICD Codes: E11.9 - DM (diabetes mellitus) Status: Chronic Plan: - levemir - SSI Problem Qualifiers (1) Cellulitis: (2) DM (diabetes mellitus): Qualified Codes: E11.8 - Type 2 diabetes mellitus with unspecified complications; Z79.4 - [facility] (current) use of insulin Jas Santoyo DO Jul 14, 2017 17:06
[2017-07-14] MEDS: ATORVASTATIN 40 MG TAB PO SCH (21:03)
[2017-07-14] MEDS: traZODone HCL 50 MG TAB PO SCH (21:03)
[2017-07-14] MEDS: HEPARIN SODIUM - SQ 10,000 UNITS/ML VIAL SQ SCH (21:03)
[2017-07-14] MEDS: DAPTOMYCIN IV SCH (22:10)
[2017-07-14] MEDS: SODIUM CHLORIDE 0.9% IV SCH (22:10)
[2017-07-15] VITALS (7 sets, daily range): BP systolic 111–136; BP diastolic 54–81; PULSE 50–63; RESP 17–20; TEMP 97.2–98.9; O2SAT 95–98
[2017-07-15] MEDS: LORazepam 0.5 MG TAB PO PRN (03:30)
[2017-07-15] MEDS: HEPARIN SODIUM - SQ 10,000 UNITS/ML VIAL SQ SCH ×3 (06:31→22:46)
[2017-07-15] MEDS: INSULIN ASPART SUPPLEMENTAL SCALE SQ SCH ×4 (08:00→22:45)
[2017-07-15] MEDS: CARVEDILOL 12.5 MG TAB PO SCH ×2 (09:21→22:44)
[2017-07-15] MEDS: DILTIAZEM-CD 120 MG CAP ER PO SCH (09:22)
[2017-07-15] MEDS: PIOGLITAZONE HCL 30 MG TAB PO SCH (09:22)
[2017-07-15] MEDS: METHYLDOPA 500 MG TAB PO SCH ×3 (09:22→18:00)
[2017-07-15] MEDS: INSULIN DETEMIR 100 UNITS/ML VIAL SQ SCH ×2 (09:22→22:45)
[2017-07-15] MEDS: ALLOPURINOL 100 MG TAB PO SCH (09:22)
[2017-07-15] MEDS: ISOSORBIDE MONONITRATE 30 MG CR TAB (IMDUR) PO SCH (09:22)
[2017-07-15] MEDS: PANTOPRAZOLE SOD 20 MG DELAYED RELEASE TAB PO SCH ×2 (09:22→22:44)
[2017-07-15] MEDS: FUROSEMIDE 40 MG TAB PO SCH ×2 (09:22→18:26)
[2017-07-15] MEDS: ASPIRIN 81 MG CHEW TAB PO SCH (09:25)
[2017-07-15] MEDS: SODIUM CHLORIDE 0.9% FLUSH 10 ML FLUSH IV FLUSH SCH ×2 (09:27→22:46)
[2017-07-15] MEDS: BUDESONIDE-FORMOTEROL 160/4.5 MCG INHALER INH SCH ×2 (09:28→22:46)
--- NOTE | 2017-07-15 09:34 | PD.CONS ---
HPI Service Nephrology Consult Requested By Reason for Consult Acute on CKD Primary Care Physician Saurav Rojas MD History of Present Illness This is a morbidly obese male patient with extensive PMH listed below. Included is CKD 4, he has had heavy proteinuria in the past, consistent with diabetic nephropathy. Admitted for treatment of cellulitis, failed outpatient antibiotic therapy. His creatinine was 2.6 and increased to 2.8 today. He is making urine. We were consulted to assist with management. He is a full code. (Maddi Reaves) Review of Systems Constitutional: COMPLAINS OF: Fatigue, Weight gain Cardiovascular: COMPLAINS OF: Lower Extremity Edema (Maddi Reaves) Past Family Social History Allergies: Coded Allergies: ANDREA Inhibitors (Verified Allergy, Severe, Anaphylaxis, 07/13/17) benazepril (Unverified Allergy, Severe, Anaphylaxis, 07/13/17) captopril (Unverified Allergy, Severe, Anaphylaxis, 07/13/17) enalaprilat (Unverified Allergy, Severe, Anaphylaxis, 07/13/17) fosinopril (Unverified Allergy, Severe, Anaphylaxis, 07/13/17) lisinopril (Unverified Allergy, Severe, Anaphylaxis, 07/13/17) quinapril (Unverified Allergy, Severe, Anaphylaxis, 07/13/17) clindamycin (Verified Allergy, Intermediate, Rash, 07/15/17) Past Medical History CKD 4, baseline creatinine 2.1-1.9, GFR 24-30 CAD hypertension diabetes mellitus type 2 tobacco dependence gout squamous cell carcinoma of the skin GERD alcohol dependency in remission pancreatitis LAMONTE not on CPAP fatty liver hyperlipidemia morbid obesity Past Surgical History Skin biopsy actinic keratosis excision from left forearm excision of squamous cell carcinoma from left forearm nuclear stress test 2013 negative colonoscopy 2013 Reported Medications Oxygen (O2) Device Liter ANH.CANULA CONTINUOUS Oxygen Concentrator Portable Gaseous 2 L/min via Nasal Canula Continuous For 99 months Ipratropium Neb (Ipratropium [place]) 0.5 Mg/2.5 Ml Amp 0.5 Mg NEB Q6HR WHILE AWAKE NEB PRN USE TOGETHER WITH ALBUTEROL Albuterol Neb (Albuterol Sulfate) 2.5 Mg/3 Ml Neb 2.5 Mg NEB Q6HR WHILE AWAKE NEB PRN USE TOGETHER WITH ATROVENT Ativan (Lorazepam) 0.5 Mg Tab 0.5 Mg PO Q8H PRN Diltiazem CD 24 HR 120 Mg Caper 120 Mg PO DAILY Reported Coreg (Carvedilol) 12.5 Mg Tab 12.5 Mg PO BID Fluticasone-Salmeterol Inh Unknown Strength Inh 1 Puff INH BID Lipitor (Atorvastatin Calcium) 40 Mg Tab 40 Mg PO HS Trazodone (Trazodone HCl) 50 Mg Tab 50 Mg PO HS Furosemide 40 Mg Tab 40 Mg PO DAILY Aspirin 81 Mg Chew 81 Mg PO DAILY Omeprazole 20 Mg Tab 20 Mg PO BID Isosorbide Mononitrate ER (Isosorbide Mononitrate) 30 Mg Chris 30 Mg PO DAILY Allopurinol 100 Mg Tab 100 Mg PO DAILY Pioglitazone (Pioglitazone HCl) 30 Mg Tab 30 Mg PO DAILY Methyldopa 500 Mg Tab 500 Mg PO TID Tresiba Flextouch Pen Inj (Insulin Degludec Inj) 600 unit/3 ML Pen 60 Units SQ DAILY Active Ordered Medications Current Medications Medications (Trade) Dose Ordered Sig/Arlet Route Start Time Stop Time Status Last Admin (NS Flush) 2 ml UNSCH PRN IV FLUSH 07/13/17 17:15 07/14/17 22:10 (NS Flush) 2 ml BID IV FLUSH 07/13/17 21:00 07/14/17 21:01 (Tylenol) 650 mg Q4H PRN PO 07/13/17 17:15 (Zofran Odt) 4 mg Q6H PRN PO 07/13/17 19:15 (Narcan Inj) 0.4 mg UNSCH PRN IV PUSH 07/13/17 17:15 (Milk Of Magnesia Liq) 30 ml Q12H PRN PO 07/13/17 17:15 (Zyloprim) 100 mg DAILY PO 07/14/17 09:00 07/14/17 09:08 (Aspirin Chew) 81 mg DAILY PO 07/14/17 09:00 07/14/17 09:09 (Lipitor) 40 mg HS PO 07/13/17 21:00 07/14/17 21:03 (Coreg) 12.5 mg BID PO 07/13/17 21:00 07/14/17 21:03 (Cardizem Cd) 120 mg DAILY PO 07/14/17 09:00 07/14/17 09:09 (Imdur) 30 mg DAILY PO 07/14/17 09:00 07/14/17 09:09 (Ativan) 0.5 mg Q8H PRN PO 07/13/17 17:15 07/15/17 03:30 (Aldomet) 500 mg TID PO 07/13/17 18:00 07/14/17 17:02 (Actos) 30 mg DAILY PO 07/14/17 09:00 07/14/17 09:08 (Desyrel) 50 mg HS PO 07/13/17 21:00 07/14/17 21:03 (NovoLOG SUPPLEMENTAL SCALE) 1 ACHS SLIDING SCALE SQ 07/13/17 21:00 07/14/17 21:02 (Duoneb Neb) 1 ampule Q6HR NEB PRN NEB 07/13/17 17:15 (Symbicort 160-4.5 Mcg Inh) 1 puff Q12HR INH 07/13/17 21:00 07/14/17 21:01 (Levemir Inj) 15 units BID SQ 07/13/17 21:00 07/14/17 21:02 (Benadryl) 25 mg Q6H PRN PO 07/13/17 17:30 (D50w (Vial) Inj) 50 ml UNSCH PRN IV PUSH 07/13/17 19:15 (Glucagon Inj) 1 mg UNSCH PRN OTHER 07/13/17 19:15 (Protonix) 20 mg BID PO 07/13/17 21:00 07/14/17 21:03 (Lasix) 40 mg BID@,18 PO 07/15/17 09:00 (Heparin Inj) 5,000 units Q8HR SQ 07/14/17 22:00 07/15/17 06:31 Daptomycin 680 mg/ Sodium Chloride 100 ml @ 200 mls/hr Q48H IV 07/14/17 22:00 07/14/17 22:10 Family History Non contributory Social History Active pack per day smoker No ETOH No oxygen at home Single Ambulatory/mostly independent Full code (Maddi Reaves) Physical Exam Vital Signs Vital Signs Date Time Temp Pulse Resp B/P (MAP) Pulse Ox O2 Delivery O2 Flow Rate FiO2 07/15/17 04:00 97.9 59 19 123/69 (87) 97 07/15/17 00:00 98.9 63 17 112/54 (73) 98 07/14/17 21:08 Nasal Cannula 2.00 07/14/17 20:00 97.4 55 18 104/54 (71) 100 07/14/17 17:23 96 Nasal Cannula 2.00 07/14/17 16:59 54 07/14/17 16:59 97 Nasal Cannula 2.00 07/14/17 16:35 65 07/14/17 16:35 96 Nasal Cannula 2.00 07/14/17 16:00 97.5 54 20 136/63 (87) 97 07/14/17 12:00 97.3 62 20 104/61 (75) 96 Physical Exam GENERAL: This is a Morbidly obese, well-developed patient, sitting in chair SKIN: No rashes, ecchymoses or lesions. Cool and dry. EYES: Extraocular motions intact. No scleral icterus. No injection or drainage. NECK: Trachea midline. No lymphadenopathy. Supple, nontender, no meningeal signs. CARDIOVASCULAR: Regular rate and rhythm no murmurs; quiet precordium RESPIRATORY: decreased through with poor air entry, visibly dyspneic on oxygen. GASTROINTESTINAL: morbidly obese, tight but non-tender, nondistended. MUSCULOSKELETAL: 2+ bilateral pitting edema, chronic ; some erythema noted below knees bilaterally NEUROLOGICAL: Awake and alert. No focal deficits. Motor and sensory grossly within normal limits. 4/5 muscle strength in all muscle groups. Normal speech. (Maddi Reaves) Result Diagram: 07/14/17 0340 07/14/17 0340 Imaging Last 72 hours Impressions Chest X-Ray 07/13/17 1707 Signed Impressions: CONCLUSION: No acute disease (Maddi Reaves) Assessment and Plan Problem List: (1) CKD stage 4 due to type 2 diabetes mellitus ICD Codes: E11.22 - Type 2 diabetes mellitus with diabetic chronic kidney disease; N18.4 - Chronic kidney disease, stage 4 (severe) Plan: He has advanced CKD 4 Baseline creatinine 2.1-2.9, GFR around 24 He has heavy proteinuria, most likely has underlying diabetic nephropathy. Has allergy to ANDREA. Most likely has component of ROGELIO due to infection/cellulitis Repeat labs tomorrow Quantify proteinuria Continue lasix BID PO , he is non oliguric. Avoid IVF. (2) Cellulitis ICD Codes: L03.90 - Cellulitis, unspecified Plan: Failed outpatient clindamycin and Keflex given vancomycin, ordered daptomycin cultures in process (3) DM (diabetes mellitus) ICD Codes: E11.9 - DM (diabetes mellitus) Status: Chronic Plan: Stop actos as it may cause lower extremity edema Insulin as needed to maintain glucose 140-180 mg/dL. (4) Hypertension ICD Codes: I10 - Hypertension Status: Chronic Plan: Continue home medications (5) Obesity ICD Codes: E66.9 - Obesity Status: Acute Plan: Diet and exercise encouraged (Maddi Reaves) Assessment and Plan patient was seen and examined. Agree with above assessment and plan. Patient has underlying stage IV CKD, most likely due to diabetic nephropathy. He has heavy proteinuria. He is at risk for progressive renal dysfunction. Admitted for Cellulitis of the lower extremities. Lasix changed to PO. (Nicko Martinez MD) Problem Qualifiers (1) Cellulitis: (2) DM (diabetes mellitus): Qualified Codes: E11.8 - Type 2 diabetes mellitus with unspecified complications; Z79.4 - oil heaterman (current) use of insulin (3) Hypertension: Qualified Codes: I10 - Essential (primary) hypertension Maddi Reaves Jul 15, 2017 09:34 Nicko Martinez MD Jul 16, 2017 08:05
[2017-07-15 13:29] LABS: AUTOMATED NEUTROPHIL # 4.2 TH/MM3 (1.8-7.7); BASOPHIL % 0.5 % (0.0-2.0); EOSINOPHIL # 0.3 TH/MM3 (0-0.4); EOSINOPHIL % 5.1 % (0.0-4.0); HEMOGLOBIN 11.3 GM/DL (13.0-17.0); LYMPH % 24.5 % (9.0-44.0); LYMPHOCYTE # 1.6 TH/MM3 (1.0-4.8); MEAN CELL VOLUME 91.6 FL (80.0-100.0); MEAN CORPUSCULAR HEMOGLOBIN 29.7 PG (27.0-34.0); MEAN CORPUSCULAR HGB CONC 32.4 % (32.0-36.0); MEAN PLATELET VOLUME 7.8 FL (7.0-11.0); MONO % 5.8 % (0.0-8.0); MONOCYTE # 0.4 TH/MM3 (0-0.9); NEUT % 64.1 % (16.0-70.0); PLATELET COUNT 185 TH/MM3 (150-450); RED BLOOD COUNT 3.82 MIL/MM3 (4.50-5.90); RED CELL DISTRIBUTION WIDTH 18.1 % (11.6-17.2); WHITE BLOOD COUNT 6.6 TH/MM3 (4.0-11.0)
[2017-07-15 13:34] LABS: BICARBONATE 31.6 MEQ/L (21.0-32.0); CALCIUM 8.2 MG/DL (8.5-10.1); CREATININE 3.04 MG/DL (0.60-1.30); MAGNESIUM 2.3 MG/DL (1.5-2.5)
--- NOTE | 2017-07-15 17:45 | PD.ID.CON ---
History of Present Illness Service ID Consult Requested By Dr Santoyo Reason for Consult BLE cellulitis Primary Care Physician Saurav Rojas MD Diagnoses: History of Present Illness 62 yo male morbidly obese and with multiple med problems including CKD stage III developped 2-3 mos of BLE edema, and in the last week also redness, tenderness. NO fever, chills He wass tated on oral Kefllex as o/p w/o improvement. Because of lack of improvement he was switched ot clindamycin and within 3 days he developped pruritic rash. Clindamycin was stopped, pt was stated on Daptomycin. He noticed improvement No fever, no leukocytosis. Creatinine is 3.04 Rash nearly resolved Review of Systems Except as stated in HPI: all other systems reviewed are Neg Past Family Social History Allergies: Coded Allergies: ANDREA Inhibitors (Verified Allergy, Severe, Anaphylaxis, 07/13/17) benazepril (Unverified Allergy, Severe, Anaphylaxis, 07/13/17) captopril (Unverified Allergy, Severe, Anaphylaxis, 07/13/17) enalaprilat (Unverified Allergy, Severe, Anaphylaxis, 07/13/17) fosinopril (Unverified Allergy, Severe, Anaphylaxis, 07/13/17) lisinopril (Unverified Allergy, Severe, Anaphylaxis, 07/13/17) quinapril (Unverified Allergy, Severe, Anaphylaxis, 07/13/17) Past Medical History CAD hypertension diabetes mellitus type 2 chronic kidney disease stage III, nephrotic range proteinuria tobacco dependence, recently quit gout squamous cell carcinoma of the skin GERD alcohol dependency in remission pancreatitis fatty liver hyperlipidemia morbid obesity Past Surgical History Skin biopsy, actinic keratosis excision from left forearm, excision of squamous cell carcinoma from left forearm, nuclear stress test 2013 negative, colonoscopy 2013 Active Ordered Medications Medications where reviewed in EMR Antibiotics Include: daptomycin Family History reviewed non contributory to current ID issue Social History quit Tobacco 1 mo ago. 50 ppd No ETOH. Quit > 30 yrs ago No Illicit Drugs. Physical Exam Vital Signs Vital Signs Date Time Temp Pulse Resp B/P (MAP) Pulse Ox O2 Delivery O2 Flow Rate FiO2 07/15/17 17:23 96 Nasal Cannula 2.00 07/15/17 08:00 97.2 50 20 135/67 (89) 96 07/15/17 04:00 97.9 59 19 123/69 (87) 97 07/15/17 00:00 98.9 63 17 112/54 (73) 98 07/14/17 21:08 Nasal Cannula 2.00 07/14/17 20:00 97.4 55 18 104/54 (71) 100 Physical Exam CONSTITUTIONAL/GENERAL: This is a morbidly obese patient, in no apparent distress. TUBES/LINES/DRAINS: SKIN: No jaundice Faint skin rash on abdomen, trunk . Skin temperature appropriate. Not diaphoretic. HEAD: Atraumatic. Normocephalic. EYES: Pupils equal and round and reactive. Extraocular motions intact. No scleral icterus. No injection or drainage. Fundi not examined. ENT: Hearing grossly normal. Nose without bleeding or purulent drainage. Throat without visible erythema, exudates, masses, or lesions. NECK: Trachea midline. Supple, nontender. No palpable thyroid enlargement or nodularity. CARDIOVASCULAR: Regular rate and rhythm without murmurs, gallops, or rubs. No JVD. Peripheral pulses symmetric. RESPIRATORY/CHEST: Symmetric, unlabored respirations. Clear to auscultation. Breath sounds equal bilaterally. No wheezes, rales, or rhonchi. GASTROINTESTINAL: Abdomen soft, non-tender, nondistended. No hepato-splenomegaly , or palpable masses. No guarding. Bowel sounds present. GENITOURINARY: Without palpable bladder distension. MUSCULOSKELETAL: Extremities without clubbing, cyanosis, Massive BLE edema 3+. Erythema of both lower legs extending to the knees with few sattelitie lesions + tender to palpation Onychomycosis Pachydermosis of both feet No joint tenderness or effusion noted. No calf tenderness. No mottling or clubbing. LYMPHATICS: No palpable cervical or supraclavicular adenopathy. NEUROLOGICAL: Awake and alert. Motor and sensory grossly within normal limits. Follows commands. Clear speech. Moves all extremities. PSYCHIATRIC: No obvious anxiety/depression. no apparent hallucinations or other psychotic thought process. Laboratory Laboratory Tests Test 07/15/17 12:18 White Blood Count 6.6 Red Blood Count 3.82 Hemoglobin 11.3 Hematocrit 35.0 Mean Corpuscular Volume 91.6 Mean Corpuscular Hemoglobin 29.7 Mean Corpuscular Hemoglobin Concent 32.4 Red Cell Distribution Width 18.1 Platelet Count 185 Mean Platelet Volume 7.8 Neutrophils (%) (Auto) 64.1 Lymphocytes (%) (Auto) 24.5 Monocytes (%) (Auto) 5.8 Eosinophils (%) (Auto) 5.1 Basophils (%) (Auto) 0.5 Neutrophils # (Auto) 4.2 Lymphocytes # (Auto) 1.6 Monocytes # (Auto) 0.4 Eosinophils # (Auto) 0.3 Basophils # (Auto) 0.0 CBC Comment DIFF FINAL Differential Comment Blood Urea Nitrogen 38 Creatinine 3.04 Random Glucose 161 Calcium Level 8.2 Magnesium Level 2.3 Sodium Level 140 Potassium Level 3.5 Chloride Level 100 Carbon Dioxide Level 31.6 Anion Gap 8 Estimat Glomerular Filtration Rate 21 Result Diagram: 07/15/17 1218 07/15/17 1218 Imaging Last Impressions Chest X-Ray 07/13/17 1707 Signed Impressions: CONCLUSION: No acute disease Assessment and Plan Assessment and Plan Morbid obesety Chronic venostatis BLE cellu.litis CKD III Cliindamycin allergy. Per pt's account rash developped after 3 day of clinda use. He stopped Keflex once started on clinda, doubt that keflex was offending medication - cont daptomycin. Would not use vancomycin over concerns of worsning renal fnx - once improve will transition him to Keflex + doxycylin, however would star Keflex while in-pt to monitor for the rash Sima Hoffman MD Jul 15, 2017 17:45
[2017-07-15] MEDS: LACTIC ACID (AMMONIUM LACTATE) 12% LOTION 225 GM BTL TOPICAL SCH ×2 (18:26→22:46)
[2017-07-15] MEDS: traZODone HCL 50 MG TAB PO SCH (22:44)
[2017-07-15] MEDS: ATORVASTATIN 40 MG TAB PO SCH (22:45)
[2017-07-16] VITALS: BP 113/81; PULSE 66; RESP 20; TEMP 97.3; O2SAT 96
[2017-07-16 04:00] VITALS: BP 101/67; PULSE 68; RESP 20; TEMP 97.7; O2SAT 96
[2017-07-16 05:35] LABS: AUTOMATED NEUTROPHIL # 4.1 TH/MM3 (1.8-7.7); BASOPHIL % 0.6 % (0.0-2.0); EOSINOPHIL # 0.3 TH/MM3 (0-0.4); HEMATOCRIT 35.1 % (39.0-51.0); HEMOGLOBIN 11.5 GM/DL (13.0-17.0); LYMPH % 25.9 % (9.0-44.0); LYMPHOCYTE # 1.7 TH/MM3 (1.0-4.8); MEAN CELL VOLUME 91.8 FL (80.0-100.0); MEAN CORPUSCULAR HGB CONC 32.7 % (32.0-36.0); MEAN PLATELET VOLUME 7.8 FL (7.0-11.0); MONO % 6.3 % (0.0-8.0); MONOCYTE # 0.4 TH/MM3 (0-0.9); NEUT % 62.2 % (16.0-70.0); PLATELET COUNT 193 TH/MM3 (150-450); RED BLOOD COUNT 3.82 MIL/MM3 (4.50-5.90); RED CELL DISTRIBUTION WIDTH 17.6 % (11.6-17.2); WHITE BLOOD COUNT 6.6 TH/MM3 (4.0-11.0)
[2017-07-16 05:53] LABS: BICARBONATE 31.1 MEQ/L (21.0-32.0); CALCIUM 8.1 MG/DL (8.5-10.1); CREATININE 3.02 MG/DL (0.60-1.30); MAGNESIUM 2.2 MG/DL (1.5-2.5); PHOSPHORUS 5.2 MG/DL (2.5-4.9)
[2017-07-16] MEDS: HEPARIN SODIUM - SQ 10,000 UNITS/ML VIAL SQ SCH ×3 (06:22→21:46)
[2017-07-16 08:00] VITALS: BP 111/76; PULSE 61; RESP 18; TEMP 97.6; O2SAT 97
[2017-07-16] MEDS: INSULIN ASPART SUPPLEMENTAL SCALE SQ SCH ×4 (08:00→21:47)
--- NOTE | 2017-07-16 08:02 | PD.PN.STU ---
Subjective Remarks Mr. Guardado was admitted for cellulitis which he says has improved since yesterday. He was consulted for Acute on CKD. His cellulitis began on the left anterior leg and spread to the right. He described it was very tender to touch and the left was purple in color. His creatinine was 2.8 and increased to 3.02. He is making urine. His actos has been discontinued and he has been receiving daptomycin for the cellulitis. He also has been coughing more since he has not taken medication for COPD. ROS: No chest pain, SOB, dysuria, gross hematuria, abdominal pain. Objective Vitals Vital Signs Date Time Temp Pulse Resp B/P (MAP) Pulse Ox O2 Delivery O2 Flow Rate FiO2 07/16/17 04:00 Nasal Cannula 2.00 07/16/17 04:00 97.7 68 20 101/67 (78) 96 07/16/17 00:00 97.3 66 20 113/81 (92) 96 07/16/17 00:00 Nasal Cannula 2.00 07/15/17 20:00 Nasal Cannula 2.00 07/15/17 20:00 97.2 60 20 111/75 (87) 97 07/15/17 17:23 96 Nasal Cannula 2.00 07/15/17 16:00 97.3 58 20 136/81 (99) 95 07/15/17 12:00 97.3 62 20 125/60 (81) 97 07/15/17 08:00 97.2 50 20 135/67 (89) 96 I/O 07/15/17 07/15/17 07/15/17 07/16/17 07/16/17 07/16/17 07:00 15:00 23:00 07:00 15:00 23:00 Intake Total 480 ml 960 ml 960 ml Output Total 1100 ml 700 ml Balance -620 ml 960 ml 260 ml Intake Oral 480 ml 960 ml 960 ml Output Urine Total 1100 ml 700 ml # Voids 2 2 # Bowel Movements 0 0 1 Result Diagram: 07/16/17 0405 07/16/17 0405 Other Results CBC & BMP Diagram 07/15/17 12:18 Calcium Level 8.2 L, Magnesium Level 2.3 Laboratory Tests Test 07/16/17 04:05 Blood Urea Nitrogen 39 MG/DL Creatinine 3.02 MG/DL Random Glucose 113 MG/DL Calcium Level 8.1 MG/DL Phosphorus Level 5.2 MG/DL Magnesium Level 2.2 MG/DL Sodium Level 141 MEQ/L Potassium Level 3.6 MEQ/L Chloride Level 100 MEQ/L Carbon Dioxide Level 31.1 MEQ/L Objective Remarks GENERAL: SKIN: Warm and dry. HEAD: Normocephalic. EYES: No scleral icterus. No injection or drainage. NECK: Supple, trachea midline. No JVD or lymphadenopathy. CARDIOVASCULAR: Regular rate and rhythm without murmurs, gallops, or rubs. RESPIRATORY: Breath sounds equal bilaterally. Breath sounds were not clear on expiration at the lung apex. GASTROINTESTINAL: Abdomen soft, non-tender. MUSCULOSKELETAL: No cyanosis. Pitting edema and erythema bilaterally in the LE leg. BACK: Nontender without obvious deformity. No CVA tenderness. Medications and IVs Current Medications Medications (Trade) Dose Ordered Sig/Arlet Route Start Time Stop Time Status Last Admin (NS Flush) 2 ml UNSCH PRN IV FLUSH 07/13/17 17:15 07/14/17 22:10 (NS Flush) 2 ml BID IV FLUSH 07/13/17 21:00 07/15/17 22:46 (Tylenol) 650 mg Q4H PRN PO 07/13/17 17:15 (Zofran Odt) 4 mg Q6H PRN PO 07/13/17 19:15 (Narcan Inj) 0.4 mg UNSCH PRN IV PUSH 07/13/17 17:15 (Milk Of Magnesia Liq) 30 ml Q12H PRN PO 07/13/17 17:15 (Zyloprim) 100 mg DAILY PO 07/14/17 09:00 07/15/17 09:22 (Aspirin Chew) 81 mg DAILY PO 07/14/17 09:00 07/15/17 09:25 (Lipitor) 40 mg HS PO 07/13/17 21:00 07/15/17 22:45 (Coreg) 12.5 mg BID PO 07/13/17 21:00 07/15/17 22:44 (Cardizem Cd) 120 mg DAILY PO 07/14/17 09:00 07/15/17 09:22 (Imdur) 30 mg DAILY PO 07/14/17 09:00 07/15/17 09:22 (Ativan) 0.5 mg Q8H PRN PO 07/13/17 17:15 07/15/17 03:30 (Aldomet) 500 mg TID PO 07/13/17 18:00 07/15/17 18:00 (Desyrel) 50 mg HS PO 07/13/17 21:00 07/15/17 22:44 (NovoLOG SUPPLEMENTAL SCALE) 1 ACHS SLIDING SCALE SQ 07/13/17 21:00 07/15/17 22:45 (Duoneb Neb) 1 ampule Q6HR NEB PRN NEB 07/13/17 17:15 (Symbicort 160-4.5 Mcg Inh) 1 puff Q12HR INH 07/13/17 21:00 07/15/17 22:46 (Levemir Inj) 15 units BID SQ 07/13/17 21:00 07/15/17 22:45 (Benadryl) 25 mg Q6H PRN PO 07/13/17 17:30 (D50w (Vial) Inj) 50 ml UNSCH PRN IV PUSH 07/13/17 19:15 (Glucagon Inj) 1 mg UNSCH PRN OTHER 07/13/17 19:15 (Protonix) 20 mg BID PO 07/13/17 21:00 07/15/17 22:44 (Lasix) 40 mg BID@,18 PO 07/15/17 09:00 07/15/17 18:26 (Heparin Inj) 5,000 units Q8HR SQ 07/14/17 22:00 07/16/17 06:22 Daptomycin 680 mg/ Sodium Chloride 100 ml @ 200 mls/hr Q48H IV 07/14/17 22:00 07/14/17 22:10 (Lac-Hydrin 12% Lotion) 1 applic BID TOPICAL 07/15/17 13:45 07/15/17 22:46 A/P Assessment and Plan 1. CKD stage 4 likely due to type 2 DM Status: chronic Plan: Advanced CKD 4 with eGFR 21. Creatinine up 3.02 from 2.1-2.9. Allergic to ACEI. Continue lasix BID PO. He is not oliguric. 2. Cellulitis complicated by DM type 2 Status: acute Plan: Actos was discontinued. Daptomycin was administered. Cultures are pending. 3. Type 2 DM Status: chronic Plan: Stop pioglitazone due to risk of LE swelling. Consider fluid management. 4. COPD Status: chronic Plan: monitor lung sounds and blood gas. 4. Essential Hypertension Status: chronic Plan: Continue medications. 5. Obesity Status: Chronic Plan: discussed the importance of diet and exercise. Discharge Planning patient was seen and examined. Above noted. Please see separately typed note. Mike Almeida Jul 16, 2017 08:02 Nicko Martinez MD Jul 17, 2017 17:14
[2017-07-16] MEDS: CARVEDILOL 12.5 MG TAB PO SCH ×2 (08:33→21:46)
[2017-07-16] MEDS: ISOSORBIDE MONONITRATE 30 MG CR TAB (IMDUR) PO SCH (08:33)
[2017-07-16] MEDS: DILTIAZEM-CD 120 MG CAP ER PO SCH (08:33)
[2017-07-16] MEDS: METHYLDOPA 500 MG TAB PO SCH ×3 (08:33→16:45)
[2017-07-16] MEDS: ALLOPURINOL 100 MG TAB PO SCH (08:34)
[2017-07-16] MEDS: ASPIRIN 81 MG CHEW TAB PO SCH (08:34)
[2017-07-16] MEDS: PANTOPRAZOLE SOD 20 MG DELAYED RELEASE TAB PO SCH ×2 (08:34→21:46)
[2017-07-16] MEDS: FUROSEMIDE 40 MG TAB PO SCH ×2 (08:34→16:45)
[2017-07-16] MEDS: LACTIC ACID (AMMONIUM LACTATE) 12% LOTION 225 GM BTL TOPICAL SCH ×2 (08:35→21:46)
[2017-07-16] MEDS: BUDESONIDE-FORMOTEROL 160/4.5 MCG INHALER INH SCH ×2 (08:35→21:47)
[2017-07-16] MEDS: SODIUM CHLORIDE 0.9% FLUSH 10 ML FLUSH IV FLUSH SCH ×2 (08:35→21:47)
[2017-07-16] MEDS: INSULIN DETEMIR 100 UNITS/ML VIAL SQ SCH ×2 (08:36→21:48)
--- NOTE | 2017-07-16 09:10 | HHI.NPPN ---
Subjective Interval History Patient reports that he is feeling better. Erythema of the lower extremities has improved. No fever. Review of Systems General Constitutional: Fatigue Musculoskeletal MS Remarks lower extremity swelling and redness. Objective Data Data Vital Signs Date Time Temp Pulse Resp B/P (MAP) Pulse Ox O2 Delivery O2 Flow Rate FiO2 07/16/17 04:00 Nasal Cannula 2.00 07/16/17 04:00 97.7 68 20 101/67 (78) 96 07/16/17 00:00 97.3 66 20 113/81 (92) 96 07/16/17 00:00 Nasal Cannula 2.00 07/15/17 20:00 Nasal Cannula 2.00 07/15/17 20:00 97.2 60 20 111/75 (87) 97 07/15/17 17:23 96 Nasal Cannula 2.00 07/15/17 16:00 97.3 58 20 136/81 (99) 95 07/15/17 12:00 97.3 62 20 125/60 (81) 97 -: 07/16/17 0405 07/16/17 0405 Physical Exam General Appearance: Well Developed Appearance Remarks obese. Neck Neck Exam: Neck Supple Pulmonary Resp Exam: Clear Bilaterally Cardiology CV Exam: Regular, Normal Sinus Rhythm Gastrointestinal/Abdomen GI Exam: Soft Extremeties Extremities Exam: Dependent Edema Assessment/Plan Problem List: (1) CKD stage 4 due to type 2 diabetes mellitus ICD Codes: E11.22 - Type 2 diabetes mellitus with diabetic chronic kidney disease; N18.4 - Chronic kidney disease, stage 4 (severe) Plan: He has advanced CKD 4 GFR is probably at baseline. Monitor renal function. No immediate need for dialysis. Consider switching Furosemide to 40 mg PO daily. (2) Cellulitis ICD Codes: L03.90 - Cellulitis, unspecified Plan: Currently on Daptomycin. (3) DM (diabetes mellitus) ICD Codes: E11.9 - DM (diabetes mellitus) Status: Chronic Plan: Stop actos as it may cause lower extremity edema Insulin as needed to maintain glucose 140-180 mg/dL. (4) Hypertension ICD Codes: I10 - Hypertension Status: Chronic Plan: Continue home medications (5) Obesity ICD Codes: E66.9 - Obesity Status: Acute Plan: Diet and exercise encouraged Plan patient can be discharged from renal standpoint. We will followup in our CKD clinic. Problem Qualifiers (1) Cellulitis: (2) DM (diabetes mellitus): Qualified Codes: E11.8 - Type 2 diabetes mellitus with unspecified complications; Z79.4 - halfway (current) use of insulin (3) Hypertension: Qualified Codes: I10 - Essential (primary) hypertension Nicko Martinez MD Jul 16, 2017 09:10
[2017-07-16 09:41] LABS: BILIRUBIN, URINE NEG (NEG); BLOOD, URINE NEG (NEG); GLUCOSE,URINE TRACE mg/dL (NEG); HYALINE CAST, URINE 5 /lpf (RARE); KETONE, URINE NEG (NEG); MUCUS URINE FEW /lpf (OCC); NITRITE,URINE NEG (NEG); PH, URINE 6.5 (5.0-8.5); SQUAMOUS EPITHELIAL CELL URINE 1 /hpf (0-5); URINE COLOR YELLOW (YELLW/STRAW); URINE LEUKOCYTE ESTERASE NEG (NEG)
[2017-07-16 12:00] VITALS: BP 119/64; PULSE 61; RESP 18; TEMP 97.3; O2SAT 98
--- NOTE | 2017-07-16 14:56 | HHI.PR ---
Subjective Remarks No new complaints. Objective Vitals Vital Signs Date Time Temp Pulse Resp B/P (MAP) Pulse Ox O2 Delivery O2 Flow Rate FiO2 07/16/17 09:30 Nasal Cannula 2.00 07/16/17 08:00 97.6 61 18 111/76 (88) 97 07/16/17 04:00 Nasal Cannula 2.00 07/16/17 04:00 97.7 68 20 101/67 (78) 96 07/16/17 00:00 97.3 66 20 113/81 (92) 96 07/16/17 00:00 Nasal Cannula 2.00 07/15/17 20:00 Nasal Cannula 2.00 07/15/17 20:00 97.2 60 20 111/75 (87) 97 07/15/17 17:23 96 Nasal Cannula 2.00 07/15/17 16:00 97.3 58 20 136/81 (99) 95 Result Diagram: 07/16/17 0405 07/16/17 0405 Imaging Last Impressions Chest X-Ray 07/13/17 1707 Signed Impressions: CONCLUSION: No acute disease Objective Remarks GENERAL: This is a well-nourished, well-developed patient, in no apparent distress. CARDIOVASCULAR: Regular rate and rhythm without murmurs, gallops, or rubs. RESPIRATORY: Clear to auscultation. Breath sounds equal bilaterally. No wheezes , rales, or rhonchi. GASTROINTESTINAL: Abdomen soft, non-tender, nondistended. Normal active bowel sounds MUSCULOSKELETAL: LEs swollen, erythema at anterior aspect of both LEs Skin: macular papular rash at trunk is fading. NEURO: Alert & Oriented x4 to person, place, time, situation. Moves all ext x4 A/P Problem List: (1) Cellulitis ICD Codes: L03.90 - Cellulitis, unspecified Plan: - Comgmt with Infectious Disease - pt presented to the ER 07/13/17 with c/o worsening redness and edema to his LEs - pt started on keflex outpt without improvement and then some worsening. - Pt then started on clindamycin with development of rash - pt received vancomycin, prednisone in the ER - No fever; no leukocytosis - worsening renal fxn with change to IV lasix. Resume PO lasix - Daptomycin (07/14 - present). Pt will receive second dose this evening. - Per ID: once improve will transition him to Keflex + doxycylin, however would start Keflex while in-pt to monitor for the rash - observe renal fxn - DVT prophylaxis supportive care. (2) CKD (chronic kidney disease) stage 3, GFR 30-59 ml/min ICD Codes: N18.3 - Chronic kidney disease, stage 3 (moderate) Status: Chronic Plan: - comgmt with Nephrology - pt showed nephrotic range proteinuria during prior hospitalization - Cr 2.67 (07/13), 3.04 (07/15), 3.02 (07/16) - changed lasix back to PO - repeat BMP in AM (3) COPD (chronic obstructive pulmonary disease) ICD Codes: J44.9 - Chronic obstructive pulmonary disease, unspecified Status: Chronic Plan: - symbicort - duonebs prn (4) DM (diabetes mellitus) ICD Codes: E11.9 - DM (diabetes mellitus) Status: Chronic Plan: - levemir - SSI Problem Qualifiers (1) Cellulitis: (2) DM (diabetes mellitus): Qualified Codes: E11.8 - Type 2 diabetes mellitus with unspecified complications; 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
[2017-07-16 16:00] VITALS: BP 147/81; PULSE 88; RESP 18; TEMP 97.2; O2SAT 97
[2017-07-16 20:00] VITALS: BP 121/76; PULSE 64; RESP 20; TEMP 97.5; O2SAT 97
--- NOTE | 2017-07-16 21:33 | HHI.IDPN ---
Subjective Subjective Remarks delaeyd entry. Prt was seen earlier today Improved no fever tolerates abx OK Antibiotics dapto Allergies: Coded Allergies: ANDREA Inhibitors (Verified Allergy, Severe, Anaphylaxis, 07/13/17) benazepril (Unverified Allergy, Severe, Anaphylaxis, 07/13/17) captopril (Unverified Allergy, Severe, Anaphylaxis, 07/13/17) enalaprilat (Unverified Allergy, Severe, Anaphylaxis, 07/13/17) fosinopril (Unverified Allergy, Severe, Anaphylaxis, 07/13/17) lisinopril (Unverified Allergy, Severe, Anaphylaxis, 07/13/17) quinapril (Unverified Allergy, Severe, Anaphylaxis, 07/13/17) clindamycin (Verified Allergy, Intermediate, Rash, 07/15/17) Objective . Vital Signs Date Time Temp Pulse Resp B/P (MAP) Pulse Ox O2 Delivery O2 Flow Rate FiO2 07/16/17 16:00 97.2 88 18 147/81 (103) 97 07/16/17 12:00 97.3 61 18 119/64 (82) 98 07/16/17 09:30 Nasal Cannula 2.00 07/16/17 08:00 97.6 61 18 111/76 (88) 97 07/16/17 04:00 Nasal Cannula 2.00 07/16/17 04:00 97.7 68 20 101/67 (78) 96 07/16/17 00:00 97.3 66 20 113/81 (92) 96 07/16/17 00:00 Nasal Cannula 2.00 . Laboratory Tests Test 07/15/17 12:18 07/16/17 04:05 White Blood Count 6.6 TH/MM3 6.6 TH/MM3 Red Blood Count 3.82 MIL/MM3 3.82 MIL/MM3 Hemoglobin 11.3 GM/DL 11.5 GM/DL Hematocrit 35.0 % 35.1 % Mean Corpuscular Volume 91.6 FL 91.8 FL Mean Corpuscular Hemoglobin 29.7 PG 30.0 PG Mean Corpuscular Hemoglobin Concent 32.4 % 32.7 % Red Cell Distribution Width 18.1 % 17.6 % Platelet Count 185 TH/MM3 193 TH/MM3 Mean Platelet Volume 7.8 FL 7.8 FL Neutrophils (%) (Auto) 64.1 % 62.2 % Lymphocytes (%) (Auto) 24.5 % 25.9 % Monocytes (%) (Auto) 5.8 % 6.3 % Eosinophils (%) (Auto) 5.1 % 5.0 % Basophils (%) (Auto) 0.5 % 0.6 % Neutrophils # (Auto) 4.2 TH/MM3 4.1 TH/MM3 Lymphocytes # (Auto) 1.6 TH/MM3 1.7 TH/MM3 Monocytes # (Auto) 0.4 TH/MM3 0.4 TH/MM3 Eosinophils # (Auto) 0.3 TH/MM3 0.3 TH/MM3 Basophils # (Auto) 0.0 TH/MM3 0.0 TH/MM3 CBC Comment DIFF FINAL DIFF FINAL Differential Comment Laboratory Tests Test 07/15/17 12:18 07/16/17 04:05 Blood Urea Nitrogen 38 MG/DL 39 MG/DL Creatinine 3.04 MG/DL 3.02 MG/DL Random Glucose 161 MG/DL 113 MG/DL Calcium Level 8.2 MG/DL 8.1 MG/DL Magnesium Level 2.3 MG/DL 2.2 MG/DL Sodium Level 140 MEQ/L 141 MEQ/L Potassium Level 3.5 MEQ/L 3.6 MEQ/L Chloride Level 100 MEQ/L 100 MEQ/L Carbon Dioxide Level 31.6 MEQ/L 31.1 MEQ/L Anion Gap 8 MEQ/L 10 MEQ/L Estimat Glomerular Filtration Rate 21 ML/MIN 21 ML/MIN Phosphorus Level 5.2 MG/DL Imaging Last Impressions Chest X-Ray 07/13/17 6557 Signed Impressions: CONCLUSION: No acute disease Physical Exam CONSTITUTIONAL/GENERAL: This is a morbidly obese patient, in no apparent distress. TUBES/LINES/DRAINS: CARDIOVASCULAR: Regular rate and rhythm without murmurs, gallops, or rubs. No JVD. Peripheral pulses symmetric. RESPIRATORY/CHEST: Symmetric, unlabored respirations. Clear to auscultation. Breath sounds equal bilaterally. No wheezes, rales, or rhonchi. GASTROINTESTINAL: Abdomen soft, non-tender, nondistended. MUSCULOSKELETAL: Extremities without clubbing, cyanosis, Massive BLE edema 3+. Leess prominent erythema of both lower legs extending to the knees with few sattelitie lesions + tender to palpation Onychomycosis Pachydermosis of both feet No joint tenderness or effusion noted. No calf tenderness. No mottling or clubbing. NEUROLOGICAL: Awake and alert. Motor and sensory grossly within normal limits. Follows commands. Clear speech. Moves all extremities. PSYCHIATRIC: No obvious anxiety/depression. no apparent hallucinations or other psychotic thought process. Assessment & Plan Remarks Morbid obesety Chronic venostatis BLE cellu.litis - improving ojn daptomycin CKD III Cliindamycin allergy. Per pt's account rash developped after 3 day of clinda use. He stopped Keflex once started on clinda, doubt that keflex was offending medication - cont daptomycin. If better in the next 24-48 hrs start on Keflex + doxycylin, however would star Keflex while in-pt to monitor for the rash dw Sima Cotto MD Jul 16, 2017 21:33
[2017-07-16] MEDS: ATORVASTATIN 40 MG TAB PO SCH (21:46)
[2017-07-16] MEDS: traZODone HCL 50 MG TAB PO SCH (21:46)
[2017-07-16] MEDS: DAPTOMYCIN IV SCH (21:54)
[2017-07-16] MEDS: SODIUM CHLORIDE 0.9% IV SCH (21:54)
[2017-07-17] VITALS: BP 117/75; PULSE 66; RESP 20; TEMP 97.8; O2SAT 93
[2017-07-17 04:00] VITALS: BP 129/77; PULSE 71; RESP 18; TEMP 97.6; O2SAT 97
[2017-07-17] MEDS: HEPARIN SODIUM - SQ 10,000 UNITS/ML VIAL SQ SCH ×3 (05:23→21:47)
[2017-07-17 06:41] LABS: ALBUMIN 2.1 GM/DL (3.4-5.0); BICARBONATE 32.1 MEQ/L (21.0-32.0); CALCIUM 8.2 MG/DL (8.5-10.1); CREATININE 2.86 MG/DL (0.60-1.30); PHOSPHORUS 5.2 MG/DL (2.5-4.9)
[2017-07-17 08:00] VITALS: BP 109/76; PULSE 70; RESP 18; TEMP 97.8; O2SAT 96
[2017-07-17] MEDS: INSULIN ASPART SUPPLEMENTAL SCALE SQ SCH ×4 (08:00→21:49)
[2017-07-17] MEDS: SODIUM CHLORIDE 0.9% FLUSH 10 ML FLUSH IV FLUSH SCH ×2 (08:58→21:45)
[2017-07-17] MEDS: ASPIRIN 81 MG CHEW TAB PO SCH (08:59)
[2017-07-17] MEDS: PANTOPRAZOLE SOD 20 MG DELAYED RELEASE TAB PO SCH ×2 (08:59→21:45)
[2017-07-17] MEDS: METHYLDOPA 500 MG TAB PO SCH ×3 (08:59→18:03)
[2017-07-17] MEDS: ALLOPURINOL 100 MG TAB PO SCH (08:59)
[2017-07-17] MEDS: FUROSEMIDE 40 MG TAB PO SCH ×2 (08:59→18:20)
[2017-07-17] MEDS: DILTIAZEM-CD 120 MG CAP ER PO SCH (08:59)
[2017-07-17] MEDS: ISOSORBIDE MONONITRATE 30 MG CR TAB (IMDUR) PO SCH (08:59)
[2017-07-17] MEDS: CARVEDILOL 12.5 MG TAB PO SCH ×2 (08:59→21:45)
[2017-07-17] MEDS: LACTIC ACID (AMMONIUM LACTATE) 12% LOTION 225 GM BTL TOPICAL SCH ×2 (09:00→21:46)
[2017-07-17] MEDS: BUDESONIDE-FORMOTEROL 160/4.5 MCG INHALER INH SCH ×2 (09:00→21:46)
[2017-07-17] MEDS: INSULIN DETEMIR 100 UNITS/ML VIAL SQ SCH ×2 (09:00→21:44)
--- NOTE | 2017-07-17 10:02 | HHI.NPPN ---
Subjective Complaints: Obesity General Problems: Edema, Hypertension Renal Failure: Chronic, Acute, Stage IV Interval History Sitting up in bed. Had a good evening. Renal function slightly better. (Maddi Reaves) Review of Systems General Constitutional: Fatigue (Maddi Reaves) Musculoskeletal MS Remarks lower extremity swelling and redness. (Maddi Reaves) Objective Data Data Vital Signs Date Time Temp Pulse Resp B/P (MAP) Pulse Ox O2 Delivery O2 Flow Rate FiO2 07/17/17 08:00 97.8 70 18 109/76 (87) 96 07/17/17 04:00 97.6 71 18 129/77 (94) 97 07/17/17 00:00 97.8 66 20 117/75 (89) 93 07/16/17 20:30 Nasal Cannula 2.00 07/16/17 20:00 97.5 64 20 121/76 (91) 97 07/16/17 19:40 Nasal Cannula 2.00 07/16/17 16:00 97.2 88 18 147/81 (103) 97 07/16/17 12:00 97.3 61 18 119/64 (82) 98 (Maddi Reaves) -: 07/16/17 0405 07/17/17 0333 Physical Exam General Appearance: Well Developed, No Acute Distress, Comfortable (Maddi Reaves) Throat Throat Exam: Oral Mucosa [place]kin & Moist (Maddi Reaves) Neck Neck Exam: Neck Supple (Maddi Reaves) Pulmonary Resp Exam: Clear Bilaterally, Breath Sounds Equal (Maddi Reaves) Cardiology CV Exam: Regular, Normal Sinus Rhythm (Maddi Reaves) Gastrointestinal/Abdomen GI Exam: Soft, Non-Tender, Bowel Sounds Present (Maddi Reaves) Musculoskeletal MS Exam: Joints Intact, Normal Tone (Maddi Reaves) Integumentary Skin Exam: Warm, Dry, Intact Skin Remarks erythema and to bilateral lower extremities (Maddi Reaves) Extremeties Extremities Exam: Pedal Pulses Palpable, Dependent Edema (Maddi Reaves) Neurologic Neuro Exam: Alert, Awake, Oriented, Speech Clear, Moving All Extremities (Maddi Reaves) Psychiatric Psych Exam: Appropriate Responses (Maddi Reaves) Assessment/Plan Discussed Condition With: Patient Assessment Summary: ROGELIO/Acute Renal Failure, Fluid/Volume Overload, Diabetes Mellitus, CKD Stage IV Problem List: (1) CKD stage 4 due to type 2 diabetes mellitus ICD Codes: E11.22 - Type 2 diabetes mellitus with diabetic chronic kidney disease; N18.4 - Chronic kidney disease, stage 4 (severe) Plan: He has advanced CKD 4 due to diabetic nephropathy GFR is close to baseline He is non oliguric. Monitor renal function while admitted Avoid nephrotoxic agents Lasix is now PO If discharged, we will follow in CKD clinic. (2) Cellulitis ICD Codes: L03.90 - Cellulitis, unspecified Plan: Seen by ID Currently on Daptomycin, to be changed to PO Keflex and doxycycline to monitor prior to discharge (3) DM (diabetes mellitus) ICD Codes: E11.9 - DM (diabetes mellitus) Status: Chronic Plan: We had stopped Actos as it tends to worsen lower extremity edema Insulin as needed to maintain glucose 140-180 mg/dL. (4) Hypertension ICD Codes: I10 - Hypertension Status: Chronic Plan: Continue home medications (5) Obesity ICD Codes: E66.9 - Obesity Status: Acute Plan: Diet and exercise encouraged Plan patient can be discharged from renal standpoint. We will followup in our CKD clinic. (Maddi Reaves) Plan patient was seen and examined. Agree with above assessment and plan. (Nicko Martinez MD) Problem Qualifiers (1) Cellulitis: (2) DM (diabetes mellitus): (3) Hypertension: Qualified Codes: I10 - Essential (primary) hypertension Maddi Reaves Jul 17, 2017 10:02 Nicko Martinez MD Jul 17, 2017 17:19
[2017-07-17 12:00] VITALS: BP 139/77; PULSE 72; RESP 18; TEMP 98; O2SAT 97
--- NOTE | 2017-07-17 12:42 | HHI.PR ---
Subjective Remarks Patient offers no new concerns/complaint feels that erythema is improving Objective Vitals Vital Signs Date Time Temp Pulse Resp B/P (MAP) Pulse Ox O2 Delivery O2 Flow Rate FiO2 07/17/17 08:00 97.8 70 18 109/76 (87) 96 07/17/17 08:00 96 Nasal Cannula 2.00 07/17/17 04:00 97.6 71 18 129/77 (94) 97 07/17/17 00:00 97.8 66 20 117/75 (89) 93 07/16/17 20:30 Nasal Cannula 2.00 07/16/17 20:00 97.5 64 20 121/76 (91) 97 07/16/17 19:40 Nasal Cannula 2.00 07/16/17 16:00 97.2 88 18 147/81 (103) 97 Result Diagram: 07/16/17 0405 07/17/17 0333 Other Results Laboratory Tests Test 07/15/17 12:18 07/16/17 04:05 07/16/17 08:50 07/17/17 03:33 White Blood Count 6.6 TH/MM3 6.6 TH/MM3 Red Blood Count 3.82 MIL/MM3 3.82 MIL/MM3 Hemoglobin 11.3 GM/DL 11.5 GM/DL Hematocrit 35.0 % 35.1 % Mean Corpuscular Volume 91.6 FL 91.8 FL Mean Corpuscular Hemoglobin 29.7 PG 30.0 PG Mean Corpuscular Hemoglobin Concent 32.4 % 32.7 % Red Cell Distribution Width 18.1 % 17.6 % Platelet Count 185 TH/MM3 193 TH/MM3 Mean Platelet Volume 7.8 FL 7.8 FL Neutrophils (%) (Auto) 64.1 % 62.2 % Lymphocytes (%) (Auto) 24.5 % 25.9 % Monocytes (%) (Auto) 5.8 % 6.3 % Eosinophils (%) (Auto) 5.1 % 5.0 % Basophils (%) (Auto) 0.5 % 0.6 % Neutrophils # (Auto) 4.2 TH/MM3 4.1 TH/MM3 Lymphocytes # (Auto) 1.6 TH/MM3 1.7 TH/MM3 Monocytes # (Auto) 0.4 TH/MM3 0.4 TH/MM3 Eosinophils # (Auto) 0.3 TH/MM3 0.3 TH/MM3 Basophils # (Auto) 0.0 TH/MM3 0.0 TH/MM3 CBC Comment DIFF FINAL DIFF FINAL Differential Comment Blood Urea Nitrogen 38 MG/DL 39 MG/DL 40 MG/DL Creatinine 3.04 MG/DL 3.02 MG/DL 2.86 MG/DL Random Glucose 161 MG/DL 113 MG/DL 109 MG/DL Calcium Level 8.2 MG/DL 8.1 MG/DL 8.2 MG/DL Magnesium Level 2.3 MG/DL 2.2 MG/DL Sodium Level 140 MEQ/L 141 MEQ/L 142 MEQ/L Potassium Level 3.5 MEQ/L 3.6 MEQ/L 3.4 MEQ/L Chloride Level 100 MEQ/L 100 MEQ/L 100 MEQ/L Carbon Dioxide Level 31.6 MEQ/L 31.1 MEQ/L 32.1 MEQ/L Anion Gap 8 MEQ/L 10 MEQ/L 10 MEQ/L Estimat Glomerular Filtration Rate 21 ML/MIN 21 ML/MIN 22 ML/MIN Phosphorus Level 5.2 MG/DL 5.2 MG/DL Urine Color YELLOW Urine Turbidity CLEAR Urine pH 6.5 Urine Specific [place] 1.016 Urine Protein 300 mg/dL Urine Glucose (UA) TRACE mg/dL Urine Ketones NEG mg/dL Urine Occult Blood NEG Urine Nitrite NEG Urine Bilirubin NEG Urine Urobilinogen LESS THAN 2.0 MG/DL Urine Leukocyte Esterase NEG Urine WBC 1 /hpf Urine Squamous Epithelial Cells 1 /hpf Urine Hyaline Casts 5 /lpf Urine Mucus FEW /lpf Microscopic Urinalysis Comment CULT NOT INDICATED Urine Random Microalbumin Urine Albumin/Creatinine Ratio 1948 mg/g Urine Microalbumin mg/L 2258 mg/L Urine Creatinine (Microalbumin) 116 mg/dL Albumin 2.1 GM/DL Imaging Last Impressions Chest X-Ray 07/13/17 1707 Signed Impressions: CONCLUSION: No acute disease Objective Remarks GENERAL: This is a well-nourished, well-developed patient, in no apparent distress. SKIN: macular papular rash at trunk is fading. CARDIOVASCULAR: Regular rate and rhythm RESPIRATORY: Clear to auscultation. Breath sounds equal bilaterally. GASTROINTESTINAL: Abdomen soft, non-tender, nondistended. Normal active bowel sounds MUSCULOSKELETAL: BLE 1+ edema, erythema at anterior aspect of BLE improving NEURO: Alert & Oriented x4 to person, place, time, situation. Moves all ext x4 A/P Problem List: (1) Cellulitis ICD Codes: L03.90 - Cellulitis, unspecified Plan: - Comgmt with Infectious Disease - pt presented to the ER 07/13/17 with c/o worsening redness and edema to his LEs - pt started on keflex outpt without improvement and then some worsening. - Pt then started on clindamycin with development of rash - pt received vancomycin, prednisone in the ER - No fever; no leukocytosis - worsening renal fxn with change to IV lasix. Resume PO lasix - Daptomycin (07/14 - present). - Per ID: once improve will transition him to Keflex + doxycycline, however would start Keflex while in-pt to monitor for the rash - add Keflex (07/17) - observe renal fxn - DVT prophylaxis supportive care. (2) CKD (chronic kidney disease) stage 3, GFR 30-59 ml/min ICD Codes: N18.3 - Chronic kidney disease, stage 3 (moderate) Status: Chronic Plan: - comgmt with Nephrology - pt showed nephrotic range proteinuria during prior hospitalization - Cr 2.67 (07/13), 3.04 (07/15), 3.02 (07/16), 2.86 (07/17) - changed lasix back to PO - repeat BMP in AM (3) COPD (chronic obstructive pulmonary disease) ICD Codes: J44.9 - Chronic obstructive pulmonary disease, unspecified Status: Chronic Plan: - symbicort - duonebs prn (4) DM (diabetes mellitus) ICD Codes: E11.9 - DM (diabetes mellitus) Status: Chronic Plan: - levemir - SSI Assessment and Plan Patient examined. Assessment and plan formulated with Abby Young PA-C. I agree with the above. Problem Qualifiers (1) Cellulitis: (2) DM (diabetes mellitus): Abby Young Jul 17, 2017 12:42 Jas Santoyo DO Jul 18, 2017 12:59
[2017-07-17 16:00] VITALS: BP 130/65; PULSE 60; RESP 18; TEMP 97.8; O2SAT 98
[2017-07-17] MEDS: CEPHALEXIN MONOHYDRATE 500 MG CAP PO SCH ×2 (18:03→18:20)
[2017-07-17 20:00] VITALS: BP 147/70; PULSE 63; RESP 20; TEMP 97.9; O2SAT 98
[2017-07-17] MEDS: ATORVASTATIN 40 MG TAB PO SCH (21:44)
[2017-07-17] MEDS: traZODone HCL 50 MG TAB PO SCH (21:45)
[2017-07-18] VITALS: BP 159/71; PULSE 62; RESP 18; TEMP 97.5; O2SAT 96
[2017-07-18] MEDS: CEPHALEXIN MONOHYDRATE 500 MG CAP PO SCH ×5 (00:29→22:25)
[2017-07-18] MEDS: HEPARIN SODIUM - SQ 10,000 UNITS/ML VIAL SQ SCH ×3 (05:30→22:20)
[2017-07-18 08:00] VITALS: BP 159/74; PULSE 76; RESP 18; TEMP 98.1; O2SAT 93
[2017-07-18] MEDS: INSULIN ASPART SUPPLEMENTAL SCALE SQ SCH ×4 (08:00→21:00)
[2017-07-18 08:23] LABS: BICARBONATE 30.9 MEQ/L (21.0-32.0); CALCIUM 8.6 MG/DL (8.5-10.1); CREATININE 2.77 MG/DL (0.60-1.30)
[2017-07-18] MEDS: METHYLDOPA 500 MG TAB PO SCH ×3 (09:31→18:11)
[2017-07-18] MEDS: CARVEDILOL 12.5 MG TAB PO SCH ×2 (09:31→22:19)
[2017-07-18] MEDS: DILTIAZEM-CD 120 MG CAP ER PO SCH (09:31)
[2017-07-18] MEDS: ISOSORBIDE MONONITRATE 30 MG CR TAB (IMDUR) PO SCH ×2 (09:31→22:19)
[2017-07-18] MEDS: ASPIRIN 81 MG CHEW TAB PO SCH (09:32)
[2017-07-18] MEDS: FUROSEMIDE 40 MG TAB PO SCH (09:32)
[2017-07-18] MEDS: SODIUM CHLORIDE 0.9% FLUSH 10 ML FLUSH IV FLUSH SCH ×2 (09:32→22:30)
[2017-07-18] MEDS: ALLOPURINOL 100 MG TAB PO SCH (09:32)
[2017-07-18] MEDS: PANTOPRAZOLE SOD 20 MG DELAYED RELEASE TAB PO SCH ×2 (09:32→22:19)
[2017-07-18] MEDS: BUDESONIDE-FORMOTEROL 160/4.5 MCG INHALER INH SCH ×2 (09:33→22:32)
[2017-07-18] MEDS: INSULIN DETEMIR 100 UNITS/ML VIAL SQ SCH ×2 (09:33→22:20)
[2017-07-18] MEDS: LACTIC ACID (AMMONIUM LACTATE) 12% LOTION 225 GM BTL TOPICAL SCH ×2 (09:34→21:00)
[2017-07-18] MEDS ORDERED: POTASSIUM CHLORIDE 10 MEQ CONTROLLED RELEASE TAB PO ONE (12:45)
--- NOTE | 2017-07-18 13:03 | HHI.PR ---
Subjective Remarks No new complaints. Objective Vitals Vital Signs Date Time Temp Pulse Resp B/P (MAP) Pulse Ox O2 Delivery O2 Flow Rate FiO2 07/18/17 08:00 98.1 76 18 159/74 (102) 93 07/18/17 00:00 97.5 62 18 159/71 (100) 96 07/17/17 20:00 Nasal Cannula 2.00 07/17/17 20:00 97.9 63 20 147/70 (95) 98 07/17/17 17:36 98 Nasal Cannula 2.00 07/17/17 16:00 97.8 60 18 130/65 (86) 98 07/17/17 15:40 97 Nasal Cannula 2.00 Result Diagram: 07/16/17 0405 07/18/17 0540 Imaging Last Impressions Chest X-Ray 07/13/17 1707 Signed Impressions: CONCLUSION: No acute disease Objective Remarks GENERAL: This is a well-nourished, well-developed patient, in no apparent distress. SKIN: macular papular rash at trunk is fading. CARDIOVASCULAR: Regular rate and rhythm RESPIRATORY: Clear to auscultation. Breath sounds equal bilaterally. GASTROINTESTINAL: Abdomen soft, non-tender, nondistended. Normal active bowel sounds MUSCULOSKELETAL: BLE 1+ edema, erythema at anterior aspect of BLE improving NEURO: Alert & Oriented x4 to person, place, time, situation. Moves all ext x4 A/P Problem List: (1) Cellulitis ICD Codes: L03.90 - Cellulitis, unspecified Plan: - Comgmt with Infectious Disease - pt presented to the ER 07/13/17 with c/o worsening redness and edema to his LEs - pt started on keflex outpt without improvement and then some worsening. - Pt then started on clindamycin with development of rash - pt received vancomycin, prednisone in the ER - No fever; no leukocytosis - worsening renal fxn with change to IV lasix. Resume PO lasix - Daptomycin (07/14 - present). - Per ID: once improve will transition him to Keflex + doxycycline, however would start Keflex while in-pt to monitor for the rash - Keflex (07/17 - present) - anticipate changing daptomycin to PO doxycycline 07/19 - observe renal fxn - DVT prophylaxis supportive care. (2) CKD (chronic kidney disease) stage 3, GFR 30-59 ml/min ICD Codes: N18.3 - Chronic kidney disease, stage 3 (moderate) Status: Chronic Plan: - comgmt with Nephrology - pt showed nephrotic range proteinuria during prior hospitalization - Cr 2.67 (07/13), 3.04 (07/15), 3.02 (07/16), 2.86 (07/17) - changed lasix back to PO - repeat BMP in AM (3) COPD (chronic obstructive pulmonary disease) ICD Codes: J44.9 - Chronic obstructive pulmonary disease, unspecified Status: Chronic Plan: - symbicort - duonebs prn (4) DM (diabetes mellitus) ICD Codes: E11.9 - DM (diabetes mellitus) Status: Chronic Plan: - levemir - SSI Problem Qualifiers (1) Cellulitis: (2) DM (diabetes mellitus): Jas Santoyo DO Jul 18, 2017 13:02
[2017-07-18] MEDS ORDERED: FUROSEMIDE 40 MG/4 ML VIAL IV PUSH ONE (13:15)
[2017-07-18 13:20] VITALS: BP 118/72
--- NOTE | 2017-07-18 14:20 | HHI.NPPN ---
Subjective Complaints: Obesity General Problems: Edema, Hypertension Renal Failure: Chronic, Acute, Stage IV Review of Systems General Constitutional: Fatigue Musculoskeletal MS Remarks lower extremity swelling and redness. Objective Data Data Vital Signs Date Time Temp Pulse Resp B/P (MAP) Pulse Ox O2 Delivery O2 Flow Rate FiO2 07/18/17 08:00 98.1 76 18 159/74 (102) 93 07/18/17 00:00 97.5 62 18 159/71 (100) 96 07/17/17 20:00 Nasal Cannula 2.00 07/17/17 20:00 97.9 63 20 147/70 (95) 98 07/17/17 17:36 98 Nasal Cannula 2.00 07/17/17 16:00 97.8 60 18 130/65 (86) 98 07/17/17 15:40 97 Nasal Cannula 2.00 -: 07/16/17 0405 07/18/17 0540 Physical Exam General Appearance: Well Developed, No Acute Distress, Comfortable Throat Throat Exam: Oral Mucosa [place] & Moist Neck Neck Exam: Neck Supple Pulmonary Resp Exam: Clear Bilaterally, Breath Sounds Equal Cardiology CV Exam: Regular, Normal Sinus Rhythm Gastrointestinal/Abdomen GI Exam: Soft, Non-Tender, Bowel Sounds Present Musculoskeletal MS Exam: Joints Intact, Normal Tone Integumentary Skin Exam: Warm, Dry, Intact Extremeties Extremities Exam: Pedal Pulses Palpable, Dependent Edema Neurologic Neuro Exam: Alert, Awake, Oriented, Speech Clear, Moving All Extremities Psychiatric Psych Exam: Appropriate Responses Assessment/Plan Discussed Condition With: Patient Assessment Summary: ROGELIO/Acute Renal Failure, Fluid/Volume Overload, Diabetes Mellitus, CKD Stage IV Problem List: (1) CKD stage 4 due to type 2 diabetes mellitus ICD Codes: E11.22 - Type 2 diabetes mellitus with diabetic chronic kidney disease; N18.4 - Chronic kidney disease, stage 4 (severe) Plan: He has advanced CKD 4 due to diabetic nephropathy GFR is close to baseline He is non oliguric. Monitor renal function while admitted Avoid nephrotoxic agents Lasix is now PO cr 2.77 k 3.2 replace If discharged, we will follow in CKD clinic. (2) Cellulitis ICD Codes: L03.90 - Cellulitis, unspecified Plan: Seen by ID Currently on Daptomycin, to be changed to PO Keflex and doxycycline to monitor prior to discharge (3) DM (diabetes mellitus) ICD Codes: E11.9 - DM (diabetes mellitus) Status: Chronic Plan: We had stopped Actos as it tends to worsen lower extremity edema Insulin as needed to maintain glucose 140-180 mg/dL. (4) Hypertension ICD Codes: I10 - Hypertension Status: Chronic Plan: Continue home medications (5) Obesity ICD Codes: E66.9 - Obesity Status: Acute Plan: Diet and exercise encouraged Problem Qualifiers (1) Cellulitis: (2) DM (diabetes mellitus): (3) Hypertension: Qualified Codes: I10 - Essential (primary) hypertension Froylan Mejia MD Jul 18, 2017 14:20
[2017-07-18 16:00] VITALS: BP 152/76; PULSE 60; RESP 18; TEMP 97.6; O2SAT 96
[2017-07-18 19:01] VITALS: O2SAT 96
[2017-07-18 20:00] VITALS: BP 162/90; PULSE 69; RESP 20; TEMP 97.9; O2SAT 97
[2017-07-18] MEDS: traZODone HCL 50 MG TAB PO SCH (22:19)
[2017-07-18] MEDS: ATORVASTATIN 40 MG TAB PO SCH (22:19)
[2017-07-18] MEDS: LORazepam 0.5 MG TAB PO PRN (22:25)
[2017-07-18] MEDS: SODIUM CHLORIDE 0.9% IV SCH (22:26)
[2017-07-18] MEDS: DAPTOMYCIN IV SCH (22:26)
[2017-07-19] VITALS (7 sets, daily range): BP systolic 88–160; BP diastolic 58–93; PULSE 59–74; RESP 17–20; TEMP 97.2–97.9; O2SAT 94–98
[2017-07-19] MEDS: diphenhydrAMINE HCL 25 MG CAP PO PRN ×2 (04:34→20:25)
[2017-07-19 06:10] LABS: BASOPHIL # 0.1 TH/MM3 (0-0.2); BASOPHIL % 0.7 % (0.0-2.0); EOSINOPHIL # 0.3 TH/MM3 (0-0.4); EOSINOPHIL % 4.2 % (0.0-4.0); HEMATOCRIT 35.6 % (39.0-51.0); HEMOGLOBIN 11.6 GM/DL (13.0-17.0); LYMPH % 20.3 % (9.0-44.0); LYMPHOCYTE # 1.5 TH/MM3 (1.0-4.8); MEAN CELL VOLUME 92.2 FL (80.0-100.0); MEAN CORPUSCULAR HEMOGLOBIN 30.1 PG (27.0-34.0); MEAN CORPUSCULAR HGB CONC 32.7 % (32.0-36.0); MEAN PLATELET VOLUME 7.8 FL (7.0-11.0); MONO % 6.9 % (0.0-8.0); MONOCYTE # 0.5 TH/MM3 (0-0.9); NEUT % 67.9 % (16.0-70.0); PLATELET COUNT 191 TH/MM3 (150-450); RED BLOOD COUNT 3.86 MIL/MM3 (4.50-5.90); RED CELL DISTRIBUTION WIDTH 17.8 % (11.6-17.2); WHITE BLOOD COUNT 7.4 TH/MM3 (4.0-11.0)
[2017-07-19] MEDS: CEPHALEXIN MONOHYDRATE 500 MG CAP PO SCH ×4 (06:28→23:43)
[2017-07-19] MEDS: HEPARIN SODIUM - SQ 10,000 UNITS/ML VIAL SQ SCH ×3 (06:28→20:26)
[2017-07-19 06:36] LABS: BICARBONATE 32.1 MEQ/L (21.0-32.0); CALCIUM 8.3 MG/DL (8.5-10.1); CREATININE 2.78 MG/DL (0.60-1.30); MAGNESIUM 2.3 MG/DL (1.5-2.5)
[2017-07-19] MEDS: INSULIN ASPART SUPPLEMENTAL SCALE SQ SCH ×4 (08:00→21:00)
[2017-07-19] MEDS ORDERED: FURO40TA PO (08:32)
[2017-07-19] MEDS ORDERED: DOXY100C PO (08:32)
[2017-07-19] MEDS ORDERED: CEPH500C PO (08:32)
--- NOTE | 2017-07-19 08:34 | HHI.DCPOC ---
Discharge Care Plan Diagnosis: (1) Cellulitis (2) DM (diabetes mellitus) (3) Chronic renal insufficiency Goals to Promote Your Health * To prevent worsening of your condition and complications * To maintain your health at the optimal level Directions to Meet Your Goals Take your medications as prescribed Follow your dietary instruction Follow activity as directed Keep your appointments as scheduled Take your immunizations and boosters as scheduled If your symptoms worsen call your PCP, if no PCP go to Urgent Care Center or Emergency Room Smoking is Dangerous to Your Health. Avoid second hand smoke Call the 24-hour hour crisis hotline for domestic abuse at Abby Young Jul 19, 2017 08:34 Jas Santoyo DO Jul 19, 2017 11:15
--- NOTE | 2017-07-19 08:35 | HHI.FF ---
Face to Face Verification Diagnosis: (1) Cellulitis (2) Unsteady gait (3) Chronic renal insufficiency (4) Hypertension (5) DM (diabetes mellitus) Physical Therapy Order: Evaluate and Treat Home Health Nursing Order: Medical education Signs/symptoms of disease process Oxygen administration education Medication education-adverse effect Nursing assessment with vital signs I have seen patient Satinder Guardado on 07/19/17. My clinical findings support the need for the requested home health care services because: Patient has SOB Deconditioned w/ increased weakness Limited ability to care for self I certify that my clinical findings support that this patient is homebound because: Unsteady gait/balance Abby Young Jul 19, 2017 08:35 Jas Santoyo DO Jul 19, 2017 09:47
--- NOTE | 2017-07-19 08:38 | HHI.DS ---
Discharge Summary Admission Date Jul 13, 2017 at 18:49 Discharge Date: Jul 20, 2017 Admitting Diagnosis Bilateral lower extremity cellulitis, edema (1) Cellulitis ICD Codes: L03.90 - Cellulitis, unspecified (2) CKD (chronic kidney disease) stage 3, GFR 30-59 ml/min ICD Codes: N18.3 - Chronic kidney disease, stage 3 (moderate) Status: Chronic (3) COPD (chronic obstructive pulmonary disease) ICD Codes: J44.9 - Chronic obstructive pulmonary disease, unspecified Status: Chronic (4) DM (diabetes mellitus) ICD Codes: E11.9 - DM (diabetes mellitus) Status: Chronic Consultants Dr. Hoffman, ID Dr. Martinez, Nephrology Procedures None Brief History This is a 62-year-old male patient with a past medical history which includes CAD, COPD oxygen dependent, hypertension, diabetes mellitus type 2, chronic kidney disease stage III, tobacco dependence, gout, squamous cell carcinoma of the skin, GERD, alcohol dependency in remission, pancreatitis, fatty liver, hyperlipidemia and morbid obesity. Pt was recently hospitalized at [facility] - 06/17/17. Pt noted to have worsening of CKD, stage 3. Testing c/w nephrotic range protein. Pt's hospitalization was also complicated by COPD exacerbation. Pt presented to the ER 07/12/17 with c/o bilateral lower extremity redness and worsening edema. Patient saw his primary care physician and was placed on cephalexin. Patient states that the redness at his anterior thighs worsened. Patient states that last Thursday he was started on clindamycin. Patient states he developed a diffuse pruritic rash both at his lower extremities and diffusely at his trunk. Patient complained of severe itching, especially at his lower extremities. Patient reports that he had a left lower extremity ultrasound outpatient which was negative for DVT. Patient given vancomycin in the ER. Patient admitted to [facility] for further evaluation and treatment. CBC/BMP: 07/19/17 0458 07/19/17 0458 Significant Findings Laboratory Tests Test 07/16/17 08:50 07/17/17 03:33 07/18/17 05:40 07/19/17 04:58 Urine Protein 300 mg/dL (NEG-TRACE) Urine Mucus FEW /lpf (OCC) Urine Albumin/Creatinine Ratio 1948 mg/g (<17) Blood Urea Nitrogen 40 MG/DL (7-18) 38 MG/DL (7-18) 36 MG/DL (7-18) Creatinine 2.86 MG/DL (0.60-1.30) 2.77 MG/DL (0.60-1.30) 2.78 MG/DL (0.60-1.30) Random Glucose 109 MG/DL (74-106) 109 MG/DL (74-106) Albumin 2.1 GM/DL (3.4-5.0) Calcium Level 8.2 MG/DL (8.5-10.1) 8.3 MG/DL (8.5-10.1) Phosphorus Level 5.2 MG/DL (2.5-4.9) Potassium Level 3.4 MEQ/L (3.5-5.1) 3.2 MEQ/L (3.5-5.1) Carbon Dioxide Level 32.1 MEQ/L (21.0-32.0) 32.1 MEQ/L (21.0-32.0) Estimat Glomerular Filtration Rate 22 ML/MIN (>89) 23 ML/MIN (>89) 23 ML/MIN (>89) Red Blood Count 3.86 MIL/MM3 (4.50-5.90) Hemoglobin 11.6 GM/DL (13.0-17.0) Hematocrit 35.6 % (39.0-51.0) Red Cell Distribution Width 17.8 % (11.6-17.2) Eosinophils (%) (Auto) 4.2 % (0.0-4.0) Imaging Last Impressions Chest X-Ray 07/13/17 1707 Signed Impressions: CONCLUSION: No acute disease PE at Discharge GENERAL: This is a well-nourished, well-developed patient, in no apparent distress. SKIN: macular papular rash at trunk is fading. CARDIOVASCULAR: Regular rate and rhythm RESPIRATORY: Clear to auscultation. Breath sounds equal bilaterally. GASTROINTESTINAL: Abdomen soft, non-tender, nondistended. Normal active bowel sounds MUSCULOSKELETAL: BLE 1+ edema, erythema at anterior aspect of BLE improving NEURO: Alert & Oriented x4 to person, place, time, situation. Moves all ext x4 Hospital Course Cellulitis - Comgmt with Infectious Disease - pt presented to the ER 07/13/17 with c/o worsening redness and edema to his LEs - pt started on keflex outpt without improvement and then some worsening. - Pt then started on clindamycin with development of rash - pt received vancomycin, prednisone in the ER - No fever; no leukocytosis - worsening renal fxn with change to IV lasix. Resume PO lasix - Daptomycin (07/14 - present). - Per ID: once improve will transition him to Keflex + doxycycline, however would start Keflex while in-pt to monitor for the rash - Keflex (07/17 - present) - anticipate changing daptomycin to PO doxycycline 07/19 - observe renal fxn - DVT prophylaxis supportive care. CKD (chronic kidney disease) stage 3, GFR 30-59 ml/min - comgmt with Nephrology - pt showed nephrotic range proteinuria during prior hospitalization - Cr 2.67 (07/13), 3.04 (07/15), 3.02 (07/16), 2.86 (07/17) - changed lasix back to PO COPD (chronic obstructive pulmonary disease) - symbicort - duonebs prn DM (diabetes mellitus) - levemir - SSI Pt Condition on Discharge: Stable Discharge Disposition: Disch w/ Home Health Serv Discharge Instructions DIET: Follow Instructions for: Diabetic Diet Activities you can perform: Regular-No Restrictions, Weight Bearing as Esther Follow up Referrals: Nephrology - [address] Mejia PCP Follow-up - [address] Rojas New Medications: Doxycycline Hyclate (Doxycycline Hyclate) 100 Mg Cap 100 MG PO BID for Infection for 10 Days, #20 CAP 0 Refills Cephalexin (Cephalexin) 500 Mg Cap 500 MG PO Q6HR for antibiotic for 10 Days, CAP 0 Refills Furosemide (Furosemide) 40 Mg Tab 40 MG PO BID@,18 for fluid retention, #60 TAB 0 Refills Continued Medications: Albuterol Neb (Albuterol Neb) 2.5 Mg/3 Ml Neb 2.5 MG NEB Q6HR WHILE AWAKE NEB PRN for SHORTNESS OF BREATH, #60 NEBULE 0 Refills USE TOGETHER WITH ATROVENT Allopurinol (Allopurinol) 100 Mg Tab 100 MG PO DAILY for Gout, #30 TAB 0 Refills Aspirin (Aspirin) 81 Mg Chew 81 MG PO DAILY, TAB 0 Refills Atorvastatin (Lipitor) 40 Mg Tab 40 MG PO HS for Cholesterol Management, #30 TAB 0 Refills Carvedilol (Coreg) 12.5 Mg Tab 12.5 MG PO BID, #60 TAB 0 Refills Diltiazem CD 24 HR (Diltiazem CD 24 HR) 120 Mg Caper 120 MG PO DAILY for HTN, #30 CAP 0 Refills Fluticasone-Salmeterol Inh (Fluticasone-Salmeterol Inh) Unknown Strength Inh 1 PUFF INH BID, INH 0 Refills Insulin Degludec Inj (Tresiba Flextouch Pen Inj) 600 unit/3 ML Pen 60 UNITS SQ DAILY for Blood Sugar Management, #9 ML 0 Refills Ipratropium Neb (Ipratropium Neb) 0.5 Mg/2.5 Ml Amp 0.5 MG NEB Q6HR WHILE AWAKE NEB PRN for SHORTNESS OF BREATH, #120 NEBULE 0 Refills USE TOGETHER WITH ALBUTEROL Isosorbide Mononitrate ER (Isosorbide Mononitrate ER) 30 Mg Chris 30 MG PO DAILY for Prevent Chest Pain, #30 TAB 0 Refills Lorazepam (Ativan) 0.5 Mg Tab 0.5 MG PO Q8H PRN for ANXIETY, #20 TAB 0 Refills Methyldopa (Methyldopa) 500 Mg Tab 500 MG PO TID for Blood Pressure Management, TAB 0 Refills Omeprazole (Omeprazole) 20 Mg Tab 20 MG PO BID, #30 TAB 0 Refills Pioglitazone (Pioglitazone) 30 Mg Tab 30 MG PO DAILY for Blood Sugar Management, #30 TAB 0 Refills Trazodone (Trazodone) 50 Mg Tab 50 MG PO HS for Control Depression, #30 TAB 0 Refills Discontinued Medications: Furosemide (Furosemide) 40 Mg Tab 40 MG PO DAILY, #30 TAB 0 Refills Abby Young Jul 19, 2017 08:38
[2017-07-19] MEDS: ALLOPURINOL 100 MG TAB PO SCH (08:50)
[2017-07-19] MEDS: PANTOPRAZOLE SOD 20 MG DELAYED RELEASE TAB PO SCH ×2 (08:50→20:25)
[2017-07-19] MEDS: DILTIAZEM-CD 120 MG CAP ER PO SCH (08:50)
[2017-07-19] MEDS: METHYLDOPA 500 MG TAB PO SCH ×3 (08:50→17:23)
[2017-07-19] MEDS: INSULIN DETEMIR 100 UNITS/ML VIAL SQ SCH ×2 (08:51→21:00)
[2017-07-19] MEDS: SODIUM CHLORIDE 0.9% FLUSH 10 ML FLUSH IV FLUSH SCH ×2 (08:51→20:25)
[2017-07-19] MEDS: CARVEDILOL 12.5 MG TAB PO SCH ×2 (08:51→20:25)
[2017-07-19] MEDS: ASPIRIN 81 MG CHEW TAB PO SCH (08:51)
[2017-07-19] MEDS: BUDESONIDE-FORMOTEROL 160/4.5 MCG INHALER INH SCH ×2 (08:51→20:31)
[2017-07-19] MEDS: LACTIC ACID (AMMONIUM LACTATE) 12% LOTION 225 GM BTL TOPICAL SCH ×2 (08:53→20:31)
[2017-07-19] MEDS ORDERED: FUROSEMIDE 40 MG TAB PO SCH (09:00)
--- NOTE | 2017-07-19 10:22 | HHI.PR ---
Subjective Remarks Patient report itching at 0400, which has resolved denies rash No other concerns/complaints Objective Vitals Vital Signs Date Time Temp Pulse Resp B/P (MAP) Pulse Ox O2 Delivery O2 Flow Rate FiO2 07/19/17 08:00 97.9 61 18 159/83 (108) 95 07/19/17 08:00 Nasal Cannula 2.00 07/19/17 04:00 97.2 60 20 88/71 (77) 97 07/19/17 00:00 Nasal Cannula 2.00 07/19/17 00:00 97.9 74 20 160/84 (109) 95 07/18/17 22:25 Nasal Cannula 2.00 07/18/17 20:00 97.9 69 20 162/90 (114) 97 07/18/17 19:01 96 Nasal Cannula 2.00 07/18/17 16:00 97.6 60 18 152/76 (101) 96 07/18/17 13:20 118/72 (87) Result Diagram: 07/19/17 0458 07/19/17 0458 Other Results Laboratory Tests Test 07/17/17 03:33 07/18/17 05:40 07/19/17 04:58 Blood Urea Nitrogen 40 MG/DL 38 MG/DL 36 MG/DL Creatinine 2.86 MG/DL 2.77 MG/DL 2.78 MG/DL Random Glucose 109 MG/DL 90 MG/DL 109 MG/DL Albumin 2.1 GM/DL Calcium Level 8.2 MG/DL 8.6 MG/DL 8.3 MG/DL Phosphorus Level 5.2 MG/DL Sodium Level 142 MEQ/L 142 MEQ/L 141 MEQ/L Potassium Level 3.4 MEQ/L 3.2 MEQ/L 3.6 MEQ/L Chloride Level 100 MEQ/L 99 MEQ/L 99 MEQ/L Carbon Dioxide Level 32.1 MEQ/L 30.9 MEQ/L 32.1 MEQ/L Anion Gap 10 MEQ/L 12 MEQ/L 10 MEQ/L Estimat Glomerular Filtration Rate 22 ML/MIN 23 ML/MIN 23 ML/MIN White Blood Count 7.4 TH/MM3 Red Blood Count 3.86 MIL/MM3 Hemoglobin 11.6 GM/DL Hematocrit 35.6 % Mean Corpuscular Volume 92.2 FL Mean Corpuscular Hemoglobin 30.1 PG Mean Corpuscular Hemoglobin Concent 32.7 % Red Cell Distribution Width 17.8 % Platelet Count 191 TH/MM3 Mean Platelet Volume 7.8 FL Neutrophils (%) (Auto) 67.9 % Lymphocytes (%) (Auto) 20.3 % Monocytes (%) (Auto) 6.9 % Eosinophils (%) (Auto) 4.2 % Basophils (%) (Auto) 0.7 % Neutrophils # (Auto) 5.0 TH/MM3 Lymphocytes # (Auto) 1.5 TH/MM3 Monocytes # (Auto) 0.5 TH/MM3 Eosinophils # (Auto) 0.3 TH/MM3 Basophils # (Auto) 0.1 TH/MM3 CBC Comment DIFF FINAL Differential Comment Magnesium Level 2.3 MG/DL Imaging Last Impressions Chest X-Ray 07/13/17 1707 Signed Impressions: CONCLUSION: No acute disease Objective Remarks GENERAL: This is a well-nourished, well-developed patient, in no apparent distress. SKIN: erythema BLE improving CARDIOVASCULAR: Regular rate and rhythm RESPIRATORY: Clear to auscultation. Breath sounds equal bilaterally. GASTROINTESTINAL: Abdomen soft, non-tender, nondistended. Normal active bowel sounds MUSCULOSKELETAL: BLE 1+ edema, erythema at anterior aspect of BLE improving NEURO: Alert & Oriented x4 to person, place, time, situation. Moves all ext x4 Procedures None A/P Problem List: (1) Cellulitis ICD Codes: L03.90 - Cellulitis, unspecified Plan: - Comgmt with Infectious Disease - pt presented to the ER 07/13/17 with c/o worsening redness and edema to his LEs - pt started on keflex outpt without improvement and then some worsening. - Pt then started on clindamycin with development of rash - pt received vancomycin, prednisone in the ER - No fever; no leukocytosis - worsening renal fxn with change to IV lasix. Resume PO lasix - Daptomycin (07/14 - present). - Per ID: once improve will transition him to Keflex + doxycycline, however would start Keflex while in-pt to monitor for the rash - Keflex (07/17 - present) - add doxycycline 100 mg Q12H (07/19 - present) - observe renal fxn - DVT prophylaxis supportive care. (2) CKD (chronic kidney disease) stage 3, GFR 30-59 ml/min ICD Codes: N18.3 - Chronic kidney disease, stage 3 (moderate) Status: Chronic Plan: - comgmt with Nephrology - pt showed nephrotic range proteinuria during prior hospitalization - Cr 2.67 (07/13), 3.04 (07/15), 3.02 (07/16), 2.86 (07/17), 2.28 (07/19) - changed lasix back to PO (3) COPD (chronic obstructive pulmonary disease) ICD Codes: J44.9 - Chronic obstructive pulmonary disease, unspecified Status: Chronic Plan: - symbicort - duonebs prn (4) DM (diabetes mellitus) ICD Codes: E11.9 - DM (diabetes mellitus) Status: Chronic Plan: - levemir - SSI Assessment and Plan Patient examined. Assessment and plan formulated with Abby Young PA-C. I agree with the above. Pt c/o itching at 4AM which is now resolved. No rash noted. continue keflex & PO doxycycline. Anticipate d/c to home with [facility] 07/20/17 Pt to receive PM dose of lasix as IV with evening. repeat BMP/Mag in AM Problem Qualifiers (1) Cellulitis: (2) DM (diabetes mellitus): Abby Young Jul 19, 2017 10:22 Jas Santoyo DO Jul 19, 2017 11:15
[2017-07-19] MEDS ORDERED: POTASSIUM CHLORIDE 20 MEQ CONTROLLED RELEASE TAB PO ONE (10:45)
[2017-07-19] MEDS ORDERED: FUROSEMIDE 40 MG/4 ML VIAL IV PUSH ONE (14:00)
--- NOTE | 2017-07-19 15:01 | HHI.NPPN ---
Subjective Complaints: Obesity General Problems: Edema, Hypertension Renal Failure: Chronic, Acute, Stage IV Review of Systems General Constitutional: Fatigue Musculoskeletal MS Remarks lower extremity swelling and redness. Objective Data Data Vital Signs Date Time Temp Pulse Resp B/P (MAP) Pulse Ox O2 Delivery O2 Flow Rate FiO2 07/19/17 12:00 97.5 60 18 133/73 (93) 97 07/19/17 08:22 94 Nasal Cannula 2.00 07/19/17 08:00 97.9 61 18 159/83 (108) 95 07/19/17 08:00 Nasal Cannula 2.00 07/19/17 04:00 97.2 60 20 88/71 (77) 97 07/19/17 00:00 Nasal Cannula 2.00 07/19/17 00:00 97.9 74 20 160/84 (109) 95 07/18/17 22:25 Nasal Cannula 2.00 07/18/17 20:00 97.9 69 20 162/90 (114) 97 07/18/17 19:01 96 Nasal Cannula 2.00 07/18/17 16:00 97.6 60 18 152/76 (101) 96 -: 07/19/17 0458 07/19/17 0458 Physical Exam General Appearance: Well Developed, No Acute Distress, Comfortable Throat Throat Exam: Oral Mucosa [place] & Moist Neck Neck Exam: Neck Supple Pulmonary Resp Exam: Clear Bilaterally, Breath Sounds Equal Cardiology CV Exam: Regular, Normal Sinus Rhythm Gastrointestinal/Abdomen GI Exam: Soft, Non-Tender, Bowel Sounds Present Musculoskeletal MS Exam: Joints Intact, Normal Tone Integumentary Skin Exam: Warm, Dry, Intact Extremeties Extremities Exam: Pedal Pulses Palpable, Dependent Edema Neurologic Neuro Exam: Alert, Awake, Oriented, Speech Clear, Moving All Extremities Psychiatric Psych Exam: Appropriate Responses Assessment/Plan Discussed Condition With: Patient Assessment Summary: ROGELIO/Acute Renal Failure, Fluid/Volume Overload, Diabetes Mellitus, CKD Stage IV Problem List: (1) CKD stage 4 due to type 2 diabetes mellitus ICD Codes: E11.22 - Type 2 diabetes mellitus with diabetic chronic kidney disease; N18.4 - Chronic kidney disease, stage 4 (severe) Plan: He has advanced CKD 4 due to diabetic nephropathy GFR is close to baseline He is non oliguric. Monitor renal function while admitted Avoid nephrotoxic agents Lasix is now PO cr 2.78 k 3.6 If discharged, will follow in CKD clinic. Dr. Martinez to follow (2) Cellulitis ICD Codes: L03.90 - Cellulitis, unspecified Plan: Seen by ID Currently on Daptomycin, to be changed to PO Keflex and doxycycline to monitor prior to discharge (3) DM (diabetes mellitus) ICD Codes: E11.9 - DM (diabetes mellitus) Status: Chronic Plan: We had stopped Actos as it tends to worsen lower extremity edema Insulin as needed to maintain glucose 140-180 mg/dL. (4) Hypertension ICD Codes: I10 - Hypertension Status: Chronic Plan: Continue home medications (5) Obesity ICD Codes: E66.9 - Obesity Status: Acute Plan: Diet and exercise encouraged Problem Qualifiers (1) Cellulitis: (2) DM (diabetes mellitus): (3) Hypertension: Qualified Codes: I10 - Essential (primary) hypertension Froylan Mejia MD Jul 19, 2017 15:01
[2017-07-19] MEDS: ISOSORBIDE MONONITRATE 30 MG CR TAB (IMDUR) PO SCH (20:25)
[2017-07-19] MEDS: ATORVASTATIN 40 MG TAB PO SCH (20:25)
[2017-07-19] MEDS: traZODone HCL 50 MG TAB PO SCH (20:27)
[2017-07-20] VITALS: BP 128/83; PULSE 78; RESP 17; TEMP 97.9; O2SAT 95
[2017-07-20 04:00] VITALS: BP 107/77; PULSE 75; RESP 16; TEMP 97.4; O2SAT 95
[2017-07-20] MEDS: CEPHALEXIN MONOHYDRATE 500 MG CAP PO SCH ×2 (05:42→12:16)
[2017-07-20] MEDS: HEPARIN SODIUM - SQ 10,000 UNITS/ML VIAL SQ SCH ×3 (05:42→22:09)
[2017-07-20 08:00] VITALS: BP 127/72; PULSE 75; RESP 20; TEMP 97.7; O2SAT 93
[2017-07-20] MEDS: INSULIN ASPART SUPPLEMENTAL SCALE SQ SCH ×4 (08:00→20:49)
[2017-07-20 08:02] LABS: BICARBONATE 30.9 MEQ/L (21.0-32.0); CALCIUM 8.3 MG/DL (8.5-10.1); CREATININE 2.68 MG/DL (0.60-1.30); MAGNESIUM 2.3 MG/DL (1.5-2.5)
[2017-07-20] MEDS: PANTOPRAZOLE SOD 20 MG DELAYED RELEASE TAB PO SCH ×2 (08:33→20:50)
[2017-07-20] MEDS: INSULIN DETEMIR 100 UNITS/ML VIAL SQ SCH ×2 (08:33→20:49)
[2017-07-20] MEDS: METHYLDOPA 500 MG TAB PO SCH ×3 (08:33→17:43)
[2017-07-20] MEDS: DILTIAZEM-CD 120 MG CAP ER PO SCH (08:33)
[2017-07-20] MEDS: CARVEDILOL 12.5 MG TAB PO SCH ×2 (08:33→20:50)
[2017-07-20] MEDS: FUROSEMIDE 40 MG TAB PO SCH ×2 (08:34→17:43)
[2017-07-20] MEDS: ASPIRIN 81 MG CHEW TAB PO SCH (08:34)
[2017-07-20] MEDS: ALLOPURINOL 100 MG TAB PO SCH (08:34)
[2017-07-20] MEDS: BUDESONIDE-FORMOTEROL 160/4.5 MCG INHALER INH SCH ×2 (08:35→20:52)
[2017-07-20] MEDS: SODIUM CHLORIDE 0.9% FLUSH 10 ML FLUSH IV FLUSH SCH ×2 (08:35→20:50)
[2017-07-20] MEDS: LACTIC ACID (AMMONIUM LACTATE) 12% LOTION 225 GM BTL TOPICAL SCH ×2 (08:35→20:53)
--- NOTE | 2017-07-20 10:08 | HHI.PR ---
Subjective Remarks describes armpit itching. Objective Vitals Vital Signs Date Time Temp Pulse Resp B/P (MAP) Pulse Ox O2 Delivery O2 Flow Rate FiO2 07/20/17 09:14 Nasal Cannula 2.00 07/20/17 08:00 97.7 75 20 127/72 (90) 93 07/20/17 04:00 97.4 75 16 107/77 (87) 95 07/20/17 04:00 Nasal Cannula 2.00 07/20/17 00:00 Nasal Cannula 2.00 07/20/17 00:00 97.9 78 17 128/83 (98) 95 07/19/17 20:25 Nasal Cannula 2.00 07/19/17 20:00 97.6 59 17 134/93 (107) 98 07/19/17 16:00 97.2 59 18 111/58 (75) 97 07/19/17 12:00 97.5 60 18 133/73 (93) 97 Result Diagram: 07/19/17 0458 07/20/17 0600 Imaging Last Impressions Chest X-Ray 07/13/17 1707 Signed Impressions: CONCLUSION: No acute disease Objective Remarks heart reg lung cta abd s/nt ext 1plus lower ext edema with erythema over lower ext. mild swelling of upper ext/hands reticular rash bilateral axillary/inner arms. Procedures None A/P Problem List: (1) Cellulitis ICD Codes: L03.90 - Cellulitis, unspecified Status: Acute Plan: - Comgmt with Infectious Disease - pt presented to the ER 07/13/17 with c/o worsening redness and edema to his LEs - pt started on keflex outpt without improvement and then some worsening. - Pt then started on clindamycin with development of rash - pt received vancomycin, prednisone in the ER - No fever; no leukocytosis - worsening renal fxn with change to IV lasix. Resume PO lasix - Daptomycin (07/14 - present). - Per ID: once improve will transition him to Keflex + doxycycline, however would start Keflex while in-pt to monitor for the rash - Keflex (07/17 - present) - observe renal fxn - DVT prophylaxis supportive care. will plan for d/c home on po abx tomorrow. (2) CKD (chronic kidney disease) stage 3, GFR 30-59 ml/min ICD Codes: N18.3 - Chronic kidney disease, stage 3 (moderate) Status: Chronic Plan: - comgmt with Nephrology - pt showed nephrotic range proteinuria during prior hospitalization - Cr 2.67 (07/13), 3.04 (07/15), 3.02 (07/16), 2.86 (07/17), 2.28 (07/19) - changed lasix back to PO (3) COPD (chronic obstructive pulmonary disease) ICD Codes: J44.9 - Chronic obstructive pulmonary disease, unspecified Status: Chronic Plan: - symbicort - duonebs prn (4) DM (diabetes mellitus) ICD Codes: E11.9 - DM (diabetes mellitus) Status: Chronic Plan: - levemir - SSI Problem Qualifiers (1) Cellulitis: (2) DM (diabetes mellitus): Blair Contreras MD Jul 20, 2017 10:08
--- NOTE | 2017-07-20 10:30 | HHI.NPPN ---
Subjective Complaints: Obesity General Problems: Edema, Hypertension Renal Failure: Chronic, Acute, Stage IV Interval History Renal function is slightly better. The patient informs me he may be discharged tomorrow. (Maddi Reaves) Review of Systems General Constitutional: Fatigue (Maddi Reaves) Musculoskeletal MS Remarks lower extremity swelling and redness. (Maddi Reaves) Objective Data Data Vital Signs Date Time Temp Pulse Resp B/P (MAP) Pulse Ox O2 Delivery O2 Flow Rate FiO2 07/20/17 09:14 Nasal Cannula 2.00 07/20/17 08:00 97.7 75 20 127/72 (90) 93 07/20/17 04:00 97.4 75 16 107/77 (87) 95 07/20/17 04:00 Nasal Cannula 2.00 07/20/17 00:00 Nasal Cannula 2.00 07/20/17 00:00 97.9 78 17 128/83 (98) 95 07/19/17 20:25 Nasal Cannula 2.00 07/19/17 20:00 97.6 59 17 134/93 (107) 98 07/19/17 16:00 97.2 59 18 111/58 (75) 97 07/19/17 12:00 97.5 60 18 133/73 (93) 97 (Maddi Reaves) -: 07/19/17 0458 07/20/17 0600 Physical Exam General Appearance: Well Developed, No Acute Distress, Comfortable (Maddi Reaves) Throat Throat Exam: Oral Mucosa [place] & Moist (Maddi Reaves) Neck Neck Exam: Neck Supple (Maddi Reaves) Pulmonary Resp Exam: Clear Bilaterally, Breath Sounds Equal (Maddi Reaves) Cardiology CV Exam: Regular, Normal Sinus Rhythm (Maddi Reaves) Gastrointestinal/Abdomen GI Exam: Soft, Non-Tender, Bowel Sounds Present (Maddi Reaves) Musculoskeletal MS Exam: Joints Intact, Normal Tone (Maddi Reaves) Integumentary Skin Exam: Warm, Dry, Intact Skin Remarks erythema and to bilateral lower extremities (Maddi Reaves) Extremeties Extremities Exam: Pedal Pulses Palpable, Dependent Edema (Maddi Reaves) Neurologic Neuro Exam: Alert, Awake, Oriented, Speech Clear, Moving All Extremities (Maddi Reaves) Psychiatric Psych Exam: Appropriate Responses (Maddi Reaves) Assessment/Plan Discussed Condition With: Patient Assessment Summary: ROGELIO/Acute Renal Failure, Fluid/Volume Overload, Diabetes Mellitus, CKD Stage IV Problem List: (1) CKD stage 4 due to type 2 diabetes mellitus ICD Codes: E11.22 - Type 2 diabetes mellitus with diabetic chronic kidney disease; N18.4 - Chronic kidney disease, stage 4 (severe) Plan: He has advanced CKD 4 due to diabetic nephropathy Renal function improved slightly He is non oliguric. Monitor renal function while admitted Avoid nephrotoxic agents On Lasix BID PO We will follow in CKD clinic after discharge. (2) Cellulitis ICD Codes: L03.90 - Cellulitis, unspecified Status: Acute Plan: ID following Currently on Daptomycin, to be changed to PO Keflex and doxycycline to monitor prior to discharge (3) DM (diabetes mellitus) ICD Codes: E11.9 - DM (diabetes mellitus) Status: Chronic Plan: We had stopped Actos as it tends to worsen lower extremity edema Insulin as needed to maintain glucose 140-180 mg/dL. (4) Hypertension ICD Codes: I10 - Hypertension Status: Chronic Plan: Continue current medications (5) Obesity ICD Codes: E66.9 - Obesity Status: Acute Plan: Diet and exercise encouraged (Maddi Reaves) Plan patient was seen and examined. Agree with above assessment and plan. He can be discharged from renal standpoint. (Nicko Martinez MD) Problem Qualifiers (1) Cellulitis: (2) DM (diabetes mellitus): (3) Hypertension: Qualified Codes: I10 - Essential (primary) hypertension Maddi Reaves Jul 20, 2017 10:30 Nicko Martinez MD Jul 20, 2017 11:27
[2017-07-20 12:00] VITALS: BP 133/83; PULSE 60; RESP 20; TEMP 97.4; O2SAT 94
[2017-07-20] MEDS: diphenhydrAMINE HCL 2%/ZINC ACETATE 0.1% CREAM 30 APPLIC/30 GM TUBE TOPICAL SCH ×2 (13:40→17:44)
[2017-07-20 16:00] VITALS: BP 148/81; PULSE 67; RESP 20; TEMP 97.3; O2SAT 97
[2017-07-20 20:00] VITALS: BP 136/84; PULSE 63; RESP 20; TEMP 97.3; O2SAT 95
[2017-07-20] MEDS: traZODone HCL 50 MG TAB PO SCH (20:50)
[2017-07-20] MEDS: ISOSORBIDE MONONITRATE 30 MG CR TAB (IMDUR) PO SCH (20:50)
[2017-07-20] MEDS: ATORVASTATIN 40 MG TAB PO SCH (20:50)
[2017-07-20] MEDS: SODIUM CHLORIDE 0.9% IV SCH (22:09)
[2017-07-20] MEDS: DAPTOMYCIN IV SCH (22:09)
--- NOTE | 2017-07-20 23:21 | HHI.IDPN ---
Subjective Subjective Remarks delaeyd entry. Prt was seen earlier today pt co BUE itching rash legs no to minimale improvement Antibiotics dapto Allergies: Coded Allergies: ANDREA Inhibitors (Verified Allergy, Severe, Anaphylaxis, 07/13/17) benazepril (Unverified Allergy, Severe, Anaphylaxis, 07/13/17) captopril (Unverified Allergy, Severe, Anaphylaxis, 07/13/17) enalaprilat (Unverified Allergy, Severe, Anaphylaxis, 07/13/17) fosinopril (Unverified Allergy, Severe, Anaphylaxis, 07/13/17) lisinopril (Unverified Allergy, Severe, Anaphylaxis, 07/13/17) quinapril (Unverified Allergy, Severe, Anaphylaxis, 07/13/17) clindamycin (Verified Allergy, Intermediate, Rash, 07/15/17) Objective . Vital Signs Date Time Temp Pulse Resp B/P (MAP) Pulse Ox O2 Delivery O2 Flow Rate FiO2 07/20/17 20:00 Nasal Cannula 2.00 07/20/17 20:00 97.3 63 20 136/84 (101) 95 07/20/17 16:00 97.3 67 20 148/81 (103) 97 07/20/17 12:00 97.4 60 20 133/83 (100) 94 07/20/17 09:14 Nasal Cannula 2.00 07/20/17 08:00 97.7 75 20 127/72 (90) 93 07/20/17 04:00 97.4 75 16 107/77 (87) 95 07/20/17 04:00 Nasal Cannula 2.00 07/20/17 00:00 Nasal Cannula 2.00 07/20/17 00:00 97.9 78 17 128/83 (98) 95 07/20/17 07/20/17 07/21/17 15:00 23:00 07:00 Intake Total 1200 ml Balance 1200 ml Intake Oral 1200 ml # Voids 4 # Bowel Movements 1 . Laboratory Tests Test 07/19/17 04:58 White Blood Count 7.4 TH/MM3 Red Blood Count 3.86 MIL/MM3 Hemoglobin 11.6 GM/DL Hematocrit 35.6 % Mean Corpuscular Volume 92.2 FL Mean Corpuscular Hemoglobin 30.1 PG Mean Corpuscular Hemoglobin Concent 32.7 % Red Cell Distribution Width 17.8 % Platelet Count 191 TH/MM3 Mean Platelet Volume 7.8 FL Neutrophils (%) (Auto) 67.9 % Lymphocytes (%) (Auto) 20.3 % Monocytes (%) (Auto) 6.9 % Eosinophils (%) (Auto) 4.2 % Basophils (%) (Auto) 0.7 % Neutrophils # (Auto) 5.0 TH/MM3 Lymphocytes # (Auto) 1.5 TH/MM3 Monocytes # (Auto) 0.5 TH/MM3 Eosinophils # (Auto) 0.3 TH/MM3 Basophils # (Auto) 0.1 TH/MM3 CBC Comment DIFF FINAL Differential Comment Laboratory Tests Test 07/19/17 04:58 07/20/17 06:00 Blood Urea Nitrogen 36 MG/DL 35 MG/DL Creatinine 2.78 MG/DL 2.68 MG/DL Random Glucose 109 MG/DL 124 MG/DL Calcium Level 8.3 MG/DL 8.3 MG/DL Magnesium Level 2.3 MG/DL 2.3 MG/DL Sodium Level 141 MEQ/L 140 MEQ/L Potassium Level 3.6 MEQ/L 3.6 MEQ/L Chloride Level 99 MEQ/L 100 MEQ/L Carbon Dioxide Level 32.1 MEQ/L 30.9 MEQ/L Anion Gap 10 MEQ/L 9 MEQ/L Estimat Glomerular Filtration Rate 23 ML/MIN 24 ML/MIN Imaging Last Impressions Chest X-Ray 07/13/17 0205 Signed Impressions: CONCLUSION: No acute disease Physical Exam CONSTITUTIONAL/GENERAL: This is a morbidly obese patient, in no apparent distress. Skin: new erythematous morbiliform rash, pruritic CARDIOVASCULAR: Regular rate and rhythm without murmurs, gallops, or rubs. No JVD. Peripheral pulses symmetric. RESPIRATORY/CHEST: Symmetric, unlabored respirations. Clear to auscultation. Breath sounds equal bilaterally. No wheezes, rales, or rhonchi. GASTROINTESTINAL: Abdomen soft, non-tender, nondistended. MUSCULOSKELETAL: Extremities without clubbing, cyanosis, Massive BLE edema 3+. Leess prominent erythema of both lower legs extending to the knees with few sattelitie lesions rash appears less prominent + tender to palpation Onychomycosis Pachydermosis of both feet No joint tenderness or effusion noted. No calf tenderness. No mottling or clubbing. NEUROLOGICAL: Awake and alert. Motor and sensory grossly within normal limits. Follows commands. Clear speech. Moves all extremities. PSYCHIATRIC: No obvious anxiety/depression. no apparent hallucinations or other psychotic thought process. Assessment & Plan Remarks Morbid obesety Chronic venostatis BLE cellu.litis - improving ojn daptomycin CKD III Cliindamycin allergy. Per pt's account rash developped after 3 day of clinda use. He stopped Keflex once started on clinda, doubt that keflex was offending medication New rash - I suspect - cont daptomycin. dc Keflex with Keflex, clindamycin causing rash, Bactrim will be likely an issue with his advanced CKD. The only option for PO o/p tx is doxycylcin, however concern for adequae strep coverage Sima Hoffman MD Jul 20, 2017 23:21
[2017-07-21] VITALS: BP 116/67; PULSE 62; RESP 18; TEMP 97.6; O2SAT 94
[2017-07-21 04:00] VITALS: BP 102/69; PULSE 71; RESP 19; TEMP 97.3; O2SAT 96
[2017-07-21 05:04] LABS: BICARBONATE 32.8 MEQ/L (21.0-32.0); CALCIUM 8.4 MG/DL (8.5-10.1); CREATININE 2.69 MG/DL (0.60-1.30)
[2017-07-21] MEDS: diphenhydrAMINE HCL 2%/ZINC ACETATE 0.1% CREAM 30 APPLIC/30 GM TUBE TOPICAL SCH ×3 (06:00→12:26)
[2017-07-21] MEDS: HEPARIN SODIUM - SQ 10,000 UNITS/ML VIAL SQ SCH ×2 (06:09→12:45)
[2017-07-21 08:00] VITALS: BP 130/61; PULSE 68; RESP 20; TEMP 97.4; O2SAT 95
[2017-07-21] MEDS: INSULIN ASPART SUPPLEMENTAL SCALE SQ SCH ×2 (08:00→12:00)
[2017-07-21] MEDS: SODIUM CHLORIDE 0.9% FLUSH 10 ML FLUSH IV FLUSH SCH (09:23)
[2017-07-21] MEDS: BUDESONIDE-FORMOTEROL 160/4.5 MCG INHALER INH SCH (09:23)
[2017-07-21] MEDS: ASPIRIN 81 MG CHEW TAB PO SCH (09:24)
[2017-07-21] MEDS: INSULIN DETEMIR 100 UNITS/ML VIAL SQ SCH (09:24)
[2017-07-21] MEDS: LACTIC ACID (AMMONIUM LACTATE) 12% LOTION 225 GM BTL TOPICAL SCH (09:24)
[2017-07-21] MEDS: METHYLDOPA 500 MG TAB PO SCH ×2 (09:24→12:45)
[2017-07-21] MEDS: FUROSEMIDE 40 MG TAB PO SCH (09:24)
[2017-07-21] MEDS: PANTOPRAZOLE SOD 20 MG DELAYED RELEASE TAB PO SCH (09:24)
[2017-07-21] MEDS: ALLOPURINOL 100 MG TAB PO SCH (09:24)
[2017-07-21] MEDS: DILTIAZEM-CD 120 MG CAP ER PO SCH (09:24)
[2017-07-21] MEDS: CARVEDILOL 12.5 MG TAB PO SCH (09:24)
[2017-07-21] MEDS ORDERED: DOXY100C PO (10:22)
--- NOTE | 2017-07-21 10:27 | HHI.DS ---
Discharge Summary Admission Date Jul 13, 2017 at 18:49 Discharge Date: Jul 21, 2017 Admitting Diagnosis Bilateral lower extremity cellulitis, edema (1) Cellulitis Diagnosis: Principal ICD Codes: L03.90 - Cellulitis, unspecified Status: Acute (2) CKD (chronic kidney disease) stage 3, GFR 30-59 ml/min Diagnosis: Secondary ICD Codes: N18.3 - Chronic kidney disease, stage 3 (moderate) Status: Chronic (3) COPD (chronic obstructive pulmonary disease) Diagnosis: Secondary ICD Codes: J44.9 - Chronic obstructive pulmonary disease, unspecified Status: Chronic (4) DM (diabetes mellitus) Diagnosis: Secondary ICD Codes: E11.9 - DM (diabetes mellitus) Status: Chronic Procedures None Brief History This is a 62-year-old male patient with a past medical history which includes CAD, COPD oxygen dependent, hypertension, diabetes mellitus type 2, chronic kidney disease stage III, tobacco dependence, gout, squamous cell carcinoma of the skin, GERD, alcohol dependency in remission, pancreatitis, fatty liver, hyperlipidemia and morbid obesity. Pt was recently hospitalized at [facility] - 06/17/17. Pt noted to have worsening of CKD, stage 3. Testing c/w nephrotic range protein. Pt's hospitalization was also complicated by COPD exacerbation. Pt presented to the ER 07/12/17 with c/o bilateral lower extremity redness and worsening edema. Patient saw his primary care physician and was placed on cephalexin. Patient states that the redness at his anterior thighs worsened. Patient states that last Thursday he was started on clindamycin. Patient states he developed a diffuse pruritic rash both at his lower extremities and diffusely at his trunk. Patient complained of severe itching, especially at his lower extremities. Patient reports that he had a left lower extremity ultrasound outpatient which was negative for DVT. Patient given vancomycin in the ER. Patient admitted to [facility] for further evaluation and treatment. CBC/BMP: 07/19/17 0458 07/21/17 0400 Significant Findings Laboratory Tests Test 07/19/17 04:58 07/20/17 06:00 07/21/17 04:00 Red Blood Count 3.86 MIL/MM3 (4.50-5.90) Hemoglobin 11.6 GM/DL (13.0-17.0) Hematocrit 35.6 % (39.0-51.0) Red Cell Distribution Width 17.8 % (11.6-17.2) Eosinophils (%) (Auto) 4.2 % (0.0-4.0) Blood Urea Nitrogen 36 MG/DL (7-18) 35 MG/DL (7-18) 34 MG/DL (7-18) Creatinine 2.78 MG/DL (0.60-1.30) 2.68 MG/DL (0.60-1.30) 2.69 MG/DL (0.60-1.30) Random Glucose 109 MG/DL (74-106) 124 MG/DL (74-106) 111 MG/DL (74-106) Calcium Level 8.3 MG/DL (8.5-10.1) 8.3 MG/DL (8.5-10.1) 8.4 MG/DL (8.5-10.1) Carbon Dioxide Level 32.1 MEQ/L (21.0-32.0) 32.8 MEQ/L (21.0-32.0) Estimat Glomerular Filtration Rate 23 ML/MIN (>89) 24 ML/MIN (>89) 24 ML/MIN (>89) Hospital Course (1) Cellulitis - pt presented to the ER 07/13/17 with c/o worsening redness and edema to his LEs - pt started on keflex outpt without improvement and then some worsening. - Pt then started on clindamycin with development of rash - pt received vancomycin, prednisone in the ER - No fever; no leukocytosis - worsening renal fxn with change to IV lasix. Resume PO lasix - Daptomycin (07/14 - 07/20) - Per ID: pt was on keflex from 07/17 to 07/20 but was stopped by ID for ?rash recommended d/c on doxycycline but concern for lack of strep coverage. (2) CKD (chronic kidney disease) stage 3, GFR 30-59 ml/min ICD Codes: N18.3 - Chronic kidney disease, stage 3 (moderate) Status: Chronic Plan: - comgmt with Nephrology - pt showed nephrotic range proteinuria during prior hospitalization - Cr 2.67 (07/13), 3.04 (07/15), 3.02 (07/16), 2.86 (07/17), 2.28 (07/19) - changed lasix back to PO and continue bid at home. (3) COPD (chronic obstructive pulmonary disease) ICD Codes: J44.9 - Chronic obstructive pulmonary disease, unspecified Status: Chronic Plan: - symbicort - duonebs prn (4) DM (diabetes mellitus) Pt Condition on Discharge: Stable Discharge Disposition: Disch w/ Home Health Serv Discharge Instructions DIET: Follow Instructions for: Diabetic Diet Activities you can perform: Regular-No Restrictions, Weight Bearing as Esther Follow up Referrals: Nephrology - [address] Mejia PCP Follow-up - [address] Rojas New Medications: Doxycycline Hyclate (Doxycycline Hyclate) 100 Mg Cap 100 MG PO BID for Infection for 7 Days, #14 CAP 0 Refills Furosemide (Furosemide) 40 Mg Tab 40 MG PO BID@09,18 for fluid retention, #60 TAB 0 Refills Continued Medications: Albuterol Neb (Albuterol Neb) 2.5 Mg/3 Ml Neb 2.5 MG NEB Q6HR WHILE AWAKE NEB PRN for SHORTNESS OF BREATH, #60 NEBULE 0 Refills USE TOGETHER WITH ATROVENT Allopurinol (Allopurinol) 100 Mg Tab 100 MG PO DAILY for Gout, #30 TAB 0 Refills Aspirin (Aspirin) 81 Mg Chew 81 MG PO DAILY, TAB 0 Refills Atorvastatin (Lipitor) 40 Mg Tab 40 MG PO HS for Cholesterol Management, #30 TAB 0 Refills Carvedilol (Coreg) 12.5 Mg Tab 12.5 MG PO BID, #60 TAB 0 Refills Diltiazem CD 24 HR (Diltiazem CD 24 HR) 120 Mg Caper 120 MG PO DAILY for HTN, #30 CAP 0 Refills Fluticasone-Salmeterol Inh (Fluticasone-Salmeterol Inh) Unknown Strength Inh 1 PUFF INH BID, INH 0 Refills Insulin Degludec Inj (Tresiba Flextouch Pen Inj) 600 unit/3 ML Pen 60 UNITS SQ DAILY for Blood Sugar Management, #9 ML 0 Refills Ipratropium Neb (Ipratropium Neb) 0.5 Mg/2.5 Ml Amp 0.5 MG NEB Q6HR WHILE AWAKE NEB PRN for SHORTNESS OF BREATH, #120 NEBULE 0 Refills USE TOGETHER WITH ALBUTEROL Isosorbide Mononitrate ER (Isosorbide Mononitrate ER) 30 Mg Chris 30 MG PO DAILY for Prevent Chest Pain, #30 TAB 0 Refills Lorazepam (Ativan) 0.5 Mg Tab 0.5 MG PO Q8H PRN for ANXIETY, #20 TAB 0 Refills Methyldopa (Methyldopa) 500 Mg Tab 500 MG PO TID for Blood Pressure Management, TAB 0 Refills Omeprazole (Omeprazole) 20 Mg Tab 20 MG PO BID, #30 TAB 0 Refills Pioglitazone (Pioglitazone) 30 Mg Tab 30 MG PO DAILY for Blood Sugar Management, #30 TAB 0 Refills Trazodone (Trazodone) 50 Mg Tab 50 MG PO HS for Control Depression, #30 TAB 0 Refills Discontinued Medications: Furosemide (Furosemide) 40 Mg Tab 40 MG PO DAILY, #30 TAB 0 Refills Blair Contreras MD Jul 21, 2017 10:27
--- NOTE | 2017-07-21 10:56 | HHI.NPPN ---
Subjective Complaints: Obesity General Problems: Edema, Hypertension Renal Failure: Chronic, Acute, Stage IV Interval History Renal function is stable. Possible discharge today. (Maddi Reaves) Review of Systems General Constitutional: Fatigue (Maddi Reaves) Musculoskeletal MS Remarks lower extremity swelling and redness. (Maddi Reaves) Objective Data Data Vital Signs Date Time Temp Pulse Resp B/P (MAP) Pulse Ox O2 Delivery O2 Flow Rate FiO2 07/21/17 09:00 Nasal Cannula 2.00 07/21/17 04:00 97.3 71 19 102/69 (80) 96 07/21/17 04:00 Nasal Cannula 2.00 07/21/17 00:00 Nasal Cannula 2.00 07/21/17 00:00 97.6 62 18 116/67 (83) 94 07/20/17 20:00 Nasal Cannula 2.00 07/20/17 20:00 97.3 63 20 136/84 (101) 95 07/20/17 16:00 97.3 67 20 148/81 (103) 97 07/20/17 12:00 97.4 60 20 133/83 (100) 94 (Maddi Reaves) -: 07/19/17 0458 07/21/17 0400 Physical Exam General Appearance: Well Developed, No Acute Distress, Comfortable (Maddi Reaves) Throat Throat Exam: Oral Mucosa [place] & Moist (Maddi Reaves) Neck Neck Exam: Neck Supple (Maddi Reaves) Pulmonary Resp Exam: Clear Bilaterally, Breath Sounds Equal (Maddi Reaves) Cardiology CV Exam: Regular, Normal Sinus Rhythm (Maddi Reaves) Gastrointestinal/Abdomen GI Exam: Soft, Non-Tender, Bowel Sounds Present (Maddi Reaves) Musculoskeletal MS Exam: Joints Intact, Normal Tone (Maddi Reaves) Integumentary Skin Exam: Warm, Dry, Intact Skin Remarks erythema and to bilateral lower extremities (Maddi Reaves) Extremeties Extremities Exam: Pedal Pulses Palpable, Dependent Edema (Maddi Reaves) Neurologic Neuro Exam: Alert, Awake, Oriented, Speech Clear, Moving All Extremities (Maddi Reaves) Psychiatric Psych Exam: Appropriate Responses (Maddi Reaves) Assessment/Plan Discussed Condition With: Patient Assessment Summary: ROGELIO/Acute Renal Failure, Fluid/Volume Overload, Diabetes Mellitus, CKD Stage IV Problem List: (1) CKD stage 4 due to type 2 diabetes mellitus ICD Codes: E11.22 - Type 2 diabetes mellitus with diabetic chronic kidney disease; N18.4 - Chronic kidney disease, stage 4 (severe) Plan: He has advanced CKD 4 due to diabetic nephropathy Renal function overall is stable. He is non oliguric. Monitor renal function while admitted Avoid nephrotoxic agents On Lasix BID PO We will follow in CKD clinic after discharge. (2) Cellulitis ICD Codes: L03.90 - Cellulitis, unspecified Status: Acute Plan: ID following Currently on Daptomycin, to be changed to PO doxycycline at discharge (3) DM (diabetes mellitus) ICD Codes: E11.9 - DM (diabetes mellitus) Status: Chronic Plan: We had stopped Actos as it tends to worsen lower extremity edema Insulin as needed to maintain glucose 140-180 mg/dL. (4) Hypertension ICD Codes: I10 - Hypertension Status: Chronic Plan: Continue current medications (5) Obesity ICD Codes: E66.9 - Obesity Status: Acute Plan: Diet and exercise encouraged (Maddi Reaves) Plan patient was seen and examined. Agree with above assessment and plan. To be discharged today. We will follow up in our office. (Nicko Martinez MD) Problem Qualifiers (1) Cellulitis: (2) DM (diabetes mellitus): (3) Hypertension: Qualified Codes: I10 - Essential (primary) hypertension Maddi Reaves Jul 21, 2017 10:56 Nicko Martinez MD Jul 21, 2017 11:39
[2017-07-21 12:00] VITALS: BP 109/58; PULSE 62; RESP 20; TEMP 97.3; O2SAT 96
--- NOTE | 2017-07-21 12:14 | HHI.IDPN ---
Subjective Subjective Remarks doing better with the rash still has some redness sweeling on LLE, RLE improved no fever Antibiotics dapto Allergies: Coded Allergies: ANDREA Inhibitors (Verified Allergy, Severe, Anaphylaxis, 07/13/17) benazepril (Unverified Allergy, Severe, Anaphylaxis, 07/13/17) captopril (Unverified Allergy, Severe, Anaphylaxis, 07/13/17) enalaprilat (Unverified Allergy, Severe, Anaphylaxis, 07/13/17) fosinopril (Unverified Allergy, Severe, Anaphylaxis, 07/13/17) lisinopril (Unverified Allergy, Severe, Anaphylaxis, 07/13/17) quinapril (Unverified Allergy, Severe, Anaphylaxis, 07/13/17) clindamycin (Verified Allergy, Intermediate, Rash, 07/15/17) Objective . Vital Signs Date Time Temp Pulse Resp B/P (MAP) Pulse Ox O2 Delivery O2 Flow Rate FiO2 07/21/17 09:00 Nasal Cannula 2.00 07/21/17 04:00 97.3 71 19 102/69 (80) 96 07/21/17 04:00 Nasal Cannula 2.00 07/21/17 00:00 Nasal Cannula 2.00 07/21/17 00:00 97.6 62 18 116/67 (83) 94 07/20/17 20:00 Nasal Cannula 2.00 07/20/17 20:00 97.3 63 20 136/84 (101) 95 07/20/17 16:00 97.3 67 20 148/81 (103) 97 . Laboratory Tests Test 07/20/17 06:00 07/21/17 04:00 Blood Urea Nitrogen 35 MG/DL 34 MG/DL Creatinine 2.68 MG/DL 2.69 MG/DL Random Glucose 124 MG/DL 111 MG/DL Calcium Level 8.3 MG/DL 8.4 MG/DL Magnesium Level 2.3 MG/DL Sodium Level 140 MEQ/L 141 MEQ/L Potassium Level 3.6 MEQ/L 3.6 MEQ/L Chloride Level 100 MEQ/L 100 MEQ/L Carbon Dioxide Level 30.9 MEQ/L 32.8 MEQ/L Anion Gap 9 MEQ/L 8 MEQ/L Estimat Glomerular Filtration Rate 24 ML/MIN 24 ML/MIN Imaging L Last Impressions Chest X-Ray [id number] Signed Impressions: CONCLUSION: No acute disease Physical Exam CONSTITUTIONAL/GENERAL: This is a morbidly obese patient, in no apparent distress. Skin: much less prominent rash CARDIOVASCULAR: Regular rate and rhythm without murmurs, gallops, or rubs. No JVD. Peripheral pulses symmetric. RESPIRATORY/CHEST: Symmetric, unlabored respirations. Clear to auscultation. Breath sounds equal bilaterally. No wheezes, rales, or rhonchi. GASTROINTESTINAL: Abdomen soft, non-tender, nondistended. MUSCULOSKELETAL: Extremities without clubbing, cyanosis, Massive BLE edema 3+. Still some erythema of L lower lextremety rash appears less prominent + tender to palpation Onychomycosis Pachydermosis of both feet No joint tenderness or effusion noted. No calf tenderness. No mottling or clubbing. NEUROLOGICAL: Awake and alert. Motor and sensory grossly within normal limits. Follows commands. Clear speech. Moves all extremities. PSYCHIATRIC: No obvious anxiety/depression. no apparent hallucinations or other psychotic thought process. Assessment & Plan Remarks Morbid obesety Chronic venostatis BLE cellu.litis - improving ojn daptomycin CKD III Cliindamycin allergy. Per pt's account rash developped after 3 day of clinda use. He stopped Keflex once started on clinda, doubt that keflex was offending medication New rash - I suspectallergic reaction to keflex - cont daptomycin. - OK to dc home on doxycylin Can not use zyvox 2/2 Sima Mendoza MD Jul 21, 2017 12:14
== END 2017-07-21 14:23 | disposition home health service (06) | DRG 603 ==
LOC: NEPC 11:47 → NEDA 17:30 → OBSVTOIN 18:49 → N04A 20:57
PROVIDERS: ADMIT Hospitalist; ATTEND Hospitalist
DX: L03.116 Cellulitis of left lower limb (principal); E11.21 Type 2 diabetes mellitus with diabetic nephropathy; N17.9 Acute kidney failure, unspecified; N18.4 Chronic kidney disease, stage 4 (severe); Z99.81 Dependence on supplemental oxygen; Z68.43 Body mass index [BMI] 50.0-59.9, adult; L03.115 Cellulitis of right lower limb; I12.9 Hypertensive chronic kidney disease with stage 1 through stage 4 chronic kidney disease, or unspecified chronic kidney disease; E87.70 Fluid overload, unspecified; K76.0 Fatty (change of) liver, not elsewhere classified; E66.01 Morbid (severe) obesity due to excess calories; I25.10 Atherosclerotic heart disease of native coronary artery without angina pectoris; E11.22 Type 2 diabetes mellitus with diabetic chronic kidney disease; L29.9 Pruritus, unspecified; R21 Rash and other nonspecific skin eruption; T36.8X5A Adverse effect of other systemic antibiotics, initial encounter; R60.0 Localized edema; G47.33 Obstructive sleep apnea (adult) (pediatric); M10.9 Gout, unspecified; J44.9 Chronic obstructive pulmonary disease, unspecified; K21.9 Gastro-esophageal reflux disease without esophagitis; E78.5 Hyperlipidemia, unspecified; E78.00 Pure hypercholesterolemia, unspecified; F10.20 Alcohol dependence, uncomplicated; F17.210 Nicotine dependence, cigarettes, uncomplicated; H91.90 Unspecified hearing loss, unspecified ear; Z85.828 Personal history of other malignant neoplasm of skin; Z79.4 Long term (current) use of insulin
CPT/HCPCS: 71045; 80048; 80053; 80069; 81001; 82043; 82948; 83735; 83880; 84100; 85025; 85610; 85730; 93005; J0878; J1200; J1644; J1815; J1940; J3370; J7050; J7512